=== PATIENT | female | born 1975 | race Caucasian/White ===

== ENCOUNTER 2017-03-08 08:44 | Outpatient (CLI) | payer OTHER ==
--- NOTE | 2017-03-08 09:36 | ULT ---
ULTRASOUND GALLBLADDER RIGHT UPPER QUADRANT: HISTORY: Pain. COMPARISON: None. FINDINGS: Visualized portions of the pancreas unremarkable. The hepatic echotexture is normal. Common bile du ct is normal. The gallbladder is normal. No cholelithiasis. The right kidney measures 9.8 x 4.4 x 4.7 cm without mass, hydronephrosis, or abnormal calcification. IMPRESSION: Normal right upper quadrant ultrasound. POS: [facility]
== END 2017-03-08 08:45 | disposition home or self-care (01) ==
LOC: ULT 08:44
PROVIDERS: ATTEND Internal Medicine Gastroenterology
DX: K21.9 Gastro-esophageal reflux disease without esophagitis (principal); R10.13 Epigastric pain; E11.9 Type 2 diabetes mellitus without complications; R11.0 Nausea
CPT/HCPCS: 76705

== ENCOUNTER 2017-05-04 20:47 | Emergency (ER) | payer OTHER ==
[2017-05-04 21:51] LABS: #Lymphocytes 1.2 thou/uL (1.20-3.40); #Monocytes 0.3 thou/uL (0.11-0.59); #Neutrophils 3.4 thou/uL (1.40-6.50); %Basophils 0.4 % (0.0-1.0); %Eosinophils 0.3 % (0.0-10.0); %Monocytes 6.1 % (0.0-10.0); %Neutrophils 69.2 % (42.0-75.0); Mean Corpuscular Hemoglobin 33.1 pg (27.0-31.0); Mean Corpuscular Volume 91.9 fl (81.0-99.0); Mean Platelet Volume 6.6 fL (7.4-10.4); Platelet Count 250 thou/uL (130-400); RBC Distribution Width 11.3 % (11.5-14.5); Red Blood Cell (RBC) Count 3.93 mill/uL (4.20-5.40); White Blood Cell (WBC) Count 4.9 thou/uL (4.8-10.8)
[2017-05-04 22:02] LABS: BHCG - Serum Negative (NEGATIVE); Pregs Control Background? CLEAR/WHITE (CLR/WHITE); Pregs Control Bar Appear? YES (CONTROL BAR)
[2017-05-04 22:17] LABS: ALT (SGPT) 16 U/L (8-55); AST (SGOT) 15 U/L (5-34); Albumin 4.6 g/dL (3.5-5.0); Alkaline Phosphatase 72 U/L (40-150); Anion Gap 20 mmol/L (10-20); BUN (Urea Nitrogen) 10 mg/dL (7.0-18.7); Bilirubin, Total 1.3 mg/dL (0.2-1.2); Calc. Creatinine Clearance 0 mL/min (70-130); Calcium 10.1 mg/dL (7.8-10.44); Carbon Dioxide 22 mmol/L (22-29); Chloride 97 mmol/L (98-107); Estimated GFR-MDRD 82; Globulin 2.8 g/dL (2.4-3.5); Glucose 254 mg/dL (70-105); Lipase 4 U/L (8-78); Protein, Total 7.4 g/dL (6.0-8.3); Sodium 135 mmol/L (136-145)
[2017-05-04] MEDS ORDERED: Promethazine HCl 25 MG/ML VIAL ONE (22:42)
[2017-05-04] MEDS ORDERED: Ketorolac Tromethamine 30 MG/ML VIAL ONE (23:26)
[2017-05-05] MEDS ORDERED: Lorazepam 2 MG/ML VIAL ONE (00:21)
[2017-05-05 01:46] LABS: Bilirubin Negative (Negative); Blood, Urine Negative (Negative); Clarity CLEAR (Clear); Glucose, Urine (Dipstick) 500 mg/dL (Negative); Leukocyte Small (Negative); Nitrite Negative (Negative); Protein, Urine (Dipstick) Negative (Neg-Trace); Specific Gravity, Urine 1.025 (1.002-1.036); Urobilinogen 0.2 mg/dL (0.2-1.0)
[2017-05-05 01:47] LABS: Pregnancy Test - Urine (BHCG) Negative (Negative); Pregu Control Background? CLEAR/WHITE (CLR/WHITE); Pregu Control Bar Appear? YES (CONTROL BAR); Specific Gravity 1.025 (1.002-1.036)
[2017-05-05 01:48] LABS: Bacteria/HPF 1+ HPF (None Seen); Hyaline Casts/LPF 0-3 HYALINE CAST LPF (0-3 Hyaline); RBC/HPF 0-3 HPF (0-3); Squamous Epithelial 0-3 HPF (0-3)
== END 2017-05-05 02:05 | disposition home or self-care (01) ==
LOC: ERS 20:47
DX: E10.43 Type 1 diabetes mellitus with diabetic autonomic (poly)neuropathy (principal); K31.84 Gastroparesis; F32.9 Major depressive disorder, single episode, unspecified
CPT/HCPCS: 80053; 81003; 81015; 81025; 83690; 84703; 85025; 87086; 96361; 96365; 96372; 96375; J1885; J2060; J2550

== ENCOUNTER 2017-05-07 10:10 | Observation (INO) | payer OTHER ==
[2017-05-07 11:03] LABS: #Lymphocytes 2.2 thou/uL (1.20-3.40); #Monocytes 0.7 thou/uL (0.11-0.59); %Basophils 0.4 % (0.0-1.0); %Eosinophils 0.2 % (0.0-10.0); %Lymphocytes 31.8 % (21.0-51.0); %Monocytes 10.1 % (0.0-10.0); %Neutrophils 57.6 % (42.0-75.0); Hemoglobin 13.5 g/dL (12.0-16.0); Mean Corpuscular HGB CONC 35.8 g/dL (32.0-36.0); Mean Corpuscular Hemoglobin 32.5 pg (27.0-31.0); Mean Corpuscular Volume 90.8 fl (81.0-99.0); Mean Platelet Volume 6.4 fL (7.4-10.4); Platelet Count 245 thou/uL (130-400); RBC Distribution Width 11.4 % (11.5-14.5); Red Blood Cell (RBC) Count 4.15 mill/uL (4.20-5.40); White Blood Cell (WBC) Count 6.9 thou/uL (4.8-10.8)
[2017-05-07] MEDS ORDERED: Ondansetron HCl/PF 4 MG/2 ML Vial ONE ×2 (11:09→13:26)
[2017-05-07 11:33] LABS: ALT (SGPT) 14 U/L (8-55); AST (SGOT) 15 U/L (5-34); Albumin 4.3 g/dL (3.5-5.0); Alkaline Phosphatase 64 U/L (40-150); Anion Gap 19 mmol/L (10-20); BUN (Urea Nitrogen) 14 mg/dL (7.0-18.7); Bilirubin, Total 0.9 mg/dL (0.2-1.2); Calc. Creatinine Clearance 0 mL/min (70-130); Calcium 9.7 mg/dL (7.8-10.44); Carbon Dioxide 20 mmol/L (22-29); Chloride 102 mmol/L (98-107); Estimated GFR-MDRD 77; Globulin 2.6 g/dL (2.4-3.5); Glucose 262 mg/dL (70-105); Lipase 9 U/L (8-78); Potassium 4.4 mmol/L (3.5-5.1); Protein, Total 6.9 g/dL (6.0-8.3); Sodium 137 mmol/L (136-145)
[2017-05-07 14:21] LABS: Bilirubin Small (Negative); Blood, Urine Negative (Negative); Clarity CLEAR (Clear); Glucose, Urine (Dipstick) >=1000 mg/dL (Negative); Leukocyte Negative (Negative); Nitrite Negative (Negative); Protein, Urine (Dipstick) Trace mg/dL (Neg-Trace); Specific Gravity, Urine 1.035 (1.002-1.036); Urobilinogen 0.2 mg/dL (0.2-1.0)
[2017-05-07] MEDS ORDERED: Promethazine HCl 25 MG/ML VIAL IM/IV PRN (14:31)
[2017-05-07] MEDS ORDERED: Erythromycin Base 250 MG TAB PO ONE (15:00)
[2017-05-07] MEDS ORDERED: Acetaminophen 650 MG Suppository PR PRN (15:30)
[2017-05-07] MEDS ORDERED: Acetaminophen 325 MG TAB PO PRN (15:30)
[2017-05-07] MEDS ORDERED: Bisacodyl 5 MG TAB PO PRN (15:30)
[2017-05-07] MEDS ORDERED: Ondansetron HCl/PF 4 MG/2 ML Vial IVP PRN (15:30)
[2017-05-07] MEDS ORDERED: HumaLOG 300 UNITS/3 ML VIAL SC PRN (15:31)
[2017-05-07] MEDS ORDERED: Dextrose 5% in Water 1,000 ML IV PRN (15:31)
[2017-05-07] MEDS ORDERED: Dextrose 50% Abboject 50 ML SYRINGE SLOW IVP PRN (15:31)
--- NOTE | 2017-05-07 16:08 | HP ---
PRIMARY CARE PHYSICIAN: Jeremy Ramon M.D. CHIEF COMPLAINT: Nausea and vomiting. HISTORY OF PRESENT ILLNESS: Ms. Martin is a pleasant 41-year-old lady who was seen at [facility] on 05/07/2017. She was sent to the emergency room by her primary care physician. She reports that since 11/2016, she has had 4 hospitalizations, first for diabetic ketoacidosis and e lectrolyte imbalance, subsequently for abdominal pain and then subsequent two admissions for gastropa resis. She has been tried on erythromycin for gastroparesis. She is currently awaiting a shipment o f domperidone from [facility]. Over the last 4 or 5 days, she reports intense nausea and vomiting, multiple episodes daily, unable t o tolerate anything orally. She also reports having some epigastric discomfort that started today, b ut is unable to describe it further. She reports shortness of breath both with exertion and at rest. She denies any cough. She reports occasional chills. She reports that she has to take laxatives t o have a bowel movement. She denies any back pain. She was seen by school age program associate, Dr. Burgos yesterday and was prescribed dronabinol. She reports th at she did not help. REVIEW OF SYSTEMS: The following complete review of systems was negative, unless otherwise mentioned in the HPI or below: Constitutional: Weight loss or gain, ability to conduct usual activities. Skin: Rash, itching. Eyes: Double vision, pain. ENT/Mouth: Nose bleeding, neck stiffness, pain, tenderness. Cardiovascular: Palpitations, dyspnea on exertion, orthopnea. Respiratory: Shortness of breath, wheezing, cough, hemoptysis, fever or night sweats. Gastrointestinal: Poor appetite, abdominal pain, heartburn, nausea, vomiting, constipation, or diarr hea. Genitourinary: Urgency, frequency, dysuria, nocturia. Musculoskeletal: Pain, swelling. Neurologic/Psychiatric: Anxiety, depression. Allergy/Immunologic: Skin rash, bleeding tendency. PAST MEDICAL HISTORY: Significant for diabetes mellitus type 2, gastroparesis, peripheral neuropathy , and possible autonomic neuropathy. PAST SURGICAL HISTORY: Significant for tonsillectomy, surgery for impacted bicuspid as an infant. PSYCHIATRIC HISTORY: Significant for depression. SOCIAL HISTORY: The patient denies tobacco use, alcohol use or recreational drug use. FAMILY HISTORY: Significant for diabetes mellitus type 2 in her family members. ALLERGIES: AMITRIPTYLINE, CODEINE, HALDOL, LATEX, NATURAL RUBBER, and REGLAN. CURRENT MEDICATIONS: Include metoprolol 12.5 mg 2 times a day, Cymbalta unknown dose 2 times a day, tramadol 50 mg as needed, Zofran and Phenergan as needed. PHYSICAL EXAMINATION: GENERAL: On examination, Ms. Martin is awake and alert, not in acute distress. VITAL SIGNS: Blood pressure is 138/85, pulse is 91. She is breathing at rate of 18 and saturating 1 00% on room air. She is afebrile. She appears frail. EYES: No scleral icterus. No conjunctival pallor. ENT: Dry mucosal membranes. No oropharyngeal erythema or exudates. NECK: Supple, nontender, normal range of movement. Trachea is midline. RESPIRATORY: Accessory muscles of breathing are not active. Chest wall movements are symmetric bila terally. LUNGS: Clear to auscultation without wheeze, rhonchi or crepitations. CARDIOVASCULAR: S1 and S2 are heard, regular. Peripheral pulses are palpable. No carotid bruit, no pericardial rub. ABDOMEN: Soft, nontender, bowel sounds heard, no hepatomegaly, no splenomegaly. NEUROLOGIC: Cranial nerves II-XII are intact. Deep tendon reflexes 2+. MUSCULOSKELETAL: Power is 5/5 in all 4 extremities. Normal range of movement at all major extremity joints. SKIN: No rashes or subcutaneous nodules. LYMPHATIC: No cervical lymphadenopathy. PSYCHIATRIC: Normal mood, normal affect, patient is oriented to person, place, and time. LABORATORY DATA: Ms. Martin's labs and investigations were reviewed. She has a normal white count , normal hemoglobin, normal platelet count, normal sodium, normal potassium, slightly decreased carbo n dioxide of 20, normal anion gap of 19, normal creatinine, unremarkable liver profile, elevated bloo d glucose of 262, urinalysis that is positive for glucose, ketones, and small amount of bilirubin. U rine toxicology that is positive for beta hydroxybutyrate. Her lipase is normal. ASSESSMENT AND PLAN: Ms. Martin is a pleasant 41-year-old lady who was seen at [facility] on 05/07/2017. Her problem list includes: 1. Nausea and vomiting. Her clinical picture is inconsistent with diabetic ketoacidosis, with a nor mal anion gap. Nausea and vomiting is most likely secondary to either gastroparesis or gastroenterit is. She will be admitted to the hospital for further management, including intravenous fluids and an tiemetics. Gastroenterology Service will be consulted. 2. Diabetes mellitus type 1: She reports episodes of hypoglycemia. We will start her on Accu-Cheks and insulin sliding scale. 3. Dehydration: The patient is clinically dehydrated, we will provide intravenous hydration. Many thanks for allowing me to participate in Ms. Martin's care. Please feel free to contact me wi th any questions or concerns. LEVEL OF RISK: Moderate. LEVEL OF COMPLEXITY: Moderate.
[2017-05-07] MEDS ORDERED: Promethazine HCl 25 MG/ML VIAL ONE (16:23)
[2017-05-07 19:06] VITALS: BMI 17.7
[2017-05-07] MEDS ORDERED: Ketorolac Tromethamine 30 MG/ML VIAL IVP PRN (19:16)
[2017-05-07] MEDS ORDERED: traMADol HCl 50 MG TAB PO PRN (20:27)
[2017-05-07] MEDS ORDERED: Lorazepam 1 MG TAB PO PRN (20:28)
[2017-05-08] MEDS ORDERED: Lorazepam 1 MG TAB PO PRN (05:56)
[2017-05-08 06:20] LABS: Anion Gap 13 mmol/L (10-20); BUN (Urea Nitrogen) 8 mg/dL (7.0-18.7); Calc. Creatinine Clearance 79 mL/min (70-130); Calcium 8.7 mg/dL (7.8-10.44); Carbon Dioxide 21 mmol/L (22-29); Chloride 107 mmol/L (98-107); Estimated GFR-MDRD Greater than 90; Glucose 200 mg/dL (70-105); Potassium 3.7 mmol/L (3.5-5.1); Sodium 137 mmol/L (136-145)
[2017-05-08 06:49] LABS: Lymphocytes 53 % (21-51); MDiff Complete? YES; Mean Corpuscular Hemoglobin 32.6 pg (27.0-31.0); Mean Corpuscular Volume 90.5 fl (81.0-99.0); Mean Platelet Volume 6.6 fL (7.4-10.4); Monocytes 4 % (0-10); Neutrophil 42 % (42-75); PLT Morphology Comment Appears Adequate; Platelet Count 207 thou/uL (130-400); RBC Distribution Width 11.2 % (11.5-14.5); RBC Morphology Normal; Reactive Lymphocytes 2 % (0-10); Red Blood Cell (RBC) Count 3.36 mill/uL (4.20-5.40); White Blood Cell (WBC) Count 4.3 thou/uL (4.8-10.8)
[2017-05-08] MEDS ORDERED: Enoxaparin Sodium 40 MG/0.4 ML SYRINGE SC SCH (09:00)
[2017-05-08 12:07] VITALS: BP 130/87; TEMP 98.2
[2017-05-08] MEDS ORDERED: Senokot 8.6 MG TAB PO PRN (12:41)
[2017-05-08] MEDS ORDERED: traMADol HCl 50 MG TAB PO PRN (12:41)
[2017-05-08] MEDS ORDERED: Metoprolol Tartrate 25 MG TAB PO SCH ×2 (12:45→14:30)
[2017-05-08] MEDS ORDERED: Ondansetron ODT 4 MG TAB PO SCH (14:00)
[2017-05-08] MEDS ORDERED: Ketorolac Tromethamine 10 MG TAB PO PRN (14:54)
--- NOTE | 2017-05-08 15:08 | CON ---
DATE OF CONSULTATION: 05/08/2017 HISTORY OF PRESENT ILLNESS: Patient is a 41-year-old female who has been diagnosed with se peri gastroparesis in the past. She was initially treated at [facility] and underwent several [facility]. During that hospitalization, she apparently underwent an EGD and was told that it was normal. She was treated with a combination of medications and subsequently was discharg ed on erythromycin and Phenergan suppositories. She returned yesterday because of persistent nausea and vomiting. During that episode she had Phenergan and used somewhat sparingly. She also was presc ribed Marinol, which made her feel funny and burp, marijuana tasting fluid. She has lost some weight and is now under 100 pounds. She was prescribed domperidone by Dr. Burgos and that is due to arrive a . PAST MEDICAL HISTORY: Significant for diabetes mellitus, gastroparesis, and peripheral neuropathy. PAST SURGICAL HISTORY: Includes tonsillectomy. SOCIAL HISTORY: She does not smoke or drink. FAMILY HISTORY: Significant for diabetes. ALLERGIES: CODEINE, AMITRIPTYLINE, HALDOL, PRESERVATIVES, INSULIN, LATEX and REGLAN. REVIEW OF SYSTEMS: Ten systems were reviewed and were negative except for above. MEDICATIONS: Domperidone 1 p.o. q.i.d. before meals, promethazine 25 mg 1 p.o. q.6 hours p.r.n., Zof ran 4 mg 1 p.o. t.i.d. p.r.n., Cymbalta 20 mg 1 p.o. b.i.d., erythromycin 250 mg 1 p.o. daily, Flutic asone nasal spray 1 as directed, Protonix 40 mg 1 p.o. daily, insulin NPH, magnesium oxide 400 mg 1 p .o. daily, metoprolol 0.5 mg p.o. b.i.d. PHYSICAL EXAMINATION: GENERAL: Shows a thin white female in no acute distress. VITAL SIGNS: Temperature 98.2, pulse 107, respiratory rate 16, blood pressure 130/87. CHEST: Clear. CARDIOVASCULAR: Regular rate and rhythm. ABDOMEN: Soft and nontender without organomegaly or masses. Bowel sounds are present and normoactiv e. RECTAL: Deferred. EXTREMITIES: Normal. NEUROLOGIC: Nonfocal. LABORATORY DATA: Shows white blood cell count 4.3, hemoglobin 11, hematocrit 30.4, platelet count is 207. Chemistries show CO2 of 21, glucose 200. Urinalysis shows urine glucose greater than 1000, ke tones greater than or equal to 80. ASSESSMENT: 1. Intractable nausea and vomiting. 2. Diabetic gastroparesis. 3. Diabetic neuropathy. 4. Diabetes mellitus. 5. Weight loss. RECOMMENDATIONS: 1. Switch from pantoprazole to famotidine 40 mg p.o. b.i.d. 2. Continue Phenergan suppositories. 3. Continue erythromycin 250 mg b.i.d. until nausea and vomiting resolved. 4. Begin domperidone when available. 5. Advance diet. 6. Stable for discharge from gastrointestinal standpoint, if patient tolerates solid diet.
--- NOTE | 2017-05-08 15:18 | DIS ---
DATE OF ADMISSION: 05/07/2017 DATE OF DISCHARGE: 05/08/2017 PRIMARY CARE PHYSICIAN: Jeremy Ramon M.D. DISCHARGE DIAGNOSES: 1. Nausea and vomiting. 2. Dehydration. CONDITION OF PATIENT AT THE TIME OF DISCHARGE: Stable. I assessed Ms. Martin on the day of discharge. She denies any chest pain or shortness of breath. Vital signs are stable. S1 and S2 are heard, regular. Lungs are clear to auscultation bilaterally. HOSPITAL COURSE: Ms. Martin is a pleasant 41-year-old lady who was admitted to [facility] on 05/07/2017 for nausea, vomiting, and dehydration. She was admitted to the [facility] floor. She was seen by Gastroenterology Service. The following day, she improved clinically. G astroenterology Service has discontinued her Protonix and started her on Pepcid 40 mg 2 times a day. I am also giving her a prescription for 15 doses of 10 mg ketorolac tablets as well as 15 doses of 2 50 mg erythromycin liquid. She has been advised to follow up with her primary care physician in 3-5 days for assessment and further prescriptions if needed. On the day of discharge, she has a white co unt of 4300, hemoglobin 11, platelet count 207,000, normal sodium, normal potassium, carbon dioxide i s slightly decreased at 21, normal creatinine. DISCHARGE MEDICATIONS: Include Cymbalta 20 mg 2 times a day, Pepcid 40 mg 2 times a day, insulin as directed by her primary care physician, lorazepam 1 mg at bedtime, metoprolol succinate 12.5 mg 2 ho es a day, Zofran p.r.n., MiraLax 17 grams daily, Senna 8.6 mg 2 times a day as needed, tramadol 50 mg every 4 hours as needed, ketorolac 10 mg every 8 hours as needed, erythromycin 250 mg 3 times a day. Many thanks for allowing me to participate in your patient's care. Please feel free to contact me if any questions or concerns. DISCHARGE DESTINATION: Home.
[2017-05-08] MEDS ORDERED: Famotidine 20 MG TAB PO SCH (21:00)
[2017-05-08] MEDS ORDERED: NPH, Human Insulin Isophane 300 UNIT/3 ML VIAL SC SCH (21:00)
[2017-05-08] MEDS ORDERED: Lorazepam 1 MG TAB PO SCH (21:00)
[2017-05-08] MEDS ORDERED: LORAZEPAM 1 MG PO SCH (21:00)
[2017-05-09] MEDS ORDERED: Non-Formulary Item 1 EACH (Pantoprazole Sodium [Protonix] 20 MG) PO SCH (09:00)
[2017-05-09] MEDS ORDERED: Non-Formulary Item 1 EACH (Metoprolol Succinate [Metoprolol Succinate] 25 MG) PO SCH (09:00)
[2017-05-09] MEDS ORDERED: Pantoprazole 40 MG GRANULES PACKET PO SCH (09:00)
[2017-05-09] MEDS ORDERED: Polyethylene Glycol 3350 17 GM Packet PO SCH (09:00)
== END 2017-05-08 16:07 | disposition home or self-care (01) ==
LOC: ERS 10:10 → EEVIPCON 10:10 → 2SW 19:04
PROVIDERS: ADMIT Internal Medicine; ATTEND Internal Medicine
DX: R11.2 Nausea with vomiting, unspecified (principal); E86.0 Dehydration; E10.42 Type 1 diabetes mellitus with diabetic polyneuropathy; E10.43 Type 1 diabetes mellitus with diabetic autonomic (poly)neuropathy; K31.84 Gastroparesis; F32.9 Major depressive disorder, single episode, unspecified; R63.4 Abnormal weight loss; Z68.1 Body mass index [BMI] 19.9 or less, adult; Z88.5 Allergy status to narcotic agent; Z88.8 Allergy status to other drugs, medicaments and biological substances; Z79.899 Other long term (current) drug therapy; Z91.040 Latex allergy status; Z79.51 Long term (current) use of inhaled steroids; Z90.89 Acquired absence of other organs; Z98.890 Other specified postprocedural states
CPT/HCPCS: 36415; 36416; 80048; 80053; 81003; 82010; 83690; 85025; 96361; 96365; 96366; 96375; 96376; G0378; J1650; J1885; J2405; J2550; Q0162

== ENCOUNTER 2017-05-11 21:23 | Emergency (ER) | payer OTHER ==
[2017-05-11 21:53] LABS: #Lymphocytes 0.9 thou/uL (1.20-3.40); #Monocytes 0.4 thou/uL (0.11-0.59); #Neutrophils 4.8 thou/uL (1.40-6.50); %Basophils 0.3 % (0.0-1.0); %Eosinophils 0.5 % (0.0-10.0); %Lymphocytes 14.2 % (21.0-51.0); %Monocytes 7.2 % (0.0-10.0); %Neutrophils 77.7 % (42.0-75.0); Hemoglobin 12.6 g/dL (12.0-16.0); Mean Corpuscular HGB CONC 35.6 g/dL (32.0-36.0); Mean Corpuscular Hemoglobin 32.9 pg (27.0-31.0); Mean Corpuscular Volume 92.4 fl (81.0-99.0); Mean Platelet Volume 6.8 fL (7.4-10.4); Platelet Count 212 thou/uL (130-400); Red Blood Cell (RBC) Count 3.84 mill/uL (4.20-5.40); White Blood Cell (WBC) Count 6.2 thou/uL (4.8-10.8)
[2017-05-11 22:14] LABS: ALT (SGPT) 16 U/L (8-55); AST (SGOT) 14 U/L (5-34); Albumin 4.4 g/dL (3.5-5.0); Alkaline Phosphatase 71 U/L (40-150); Anion Gap 18 mmol/L (10-20); BUN (Urea Nitrogen) 8 mg/dL (7.0-18.7); Bilirubin, Total 0.9 mg/dL (0.2-1.2); Calc. Creatinine Clearance 0 mL/min (70-130); Calcium 10.1 mg/dL (7.8-10.44); Carbon Dioxide 26 mmol/L (22-29); Chloride 98 mmol/L (98-107); Estimated GFR-MDRD 81; Globulin 2.6 g/dL (2.4-3.5); Glucose 256 mg/dL (70-105); Lipase 17 U/L (8-78); Potassium 3.9 mmol/L (3.5-5.1); Sodium 138 mmol/L (136-145)
[2017-05-11] MEDS ORDERED: diphenhydrAMINE 50 MG/ML VIAL ONE (22:19)
[2017-05-11] MEDS ORDERED: Metoclopramide HCl 10 MG/2 ML VIAL ONE (22:38)
[2017-05-11] MEDS ORDERED: Lorazepam 2 MG/ML VIAL ONE (23:23)
[2017-05-11 23:31] LABS: Bilirubin Negative (Negative); Blood, Urine Negative (Negative); Clarity CLEAR (Clear); Glucose, Urine (Dipstick) 250 mg/dL (Negative); Leukocyte Small (Negative); Nitrite Negative (Negative); Protein, Urine (Dipstick) Negative (Neg-Trace); Specific Gravity, Urine 1.013 (1.002-1.036); Urobilinogen 0.2 mg/dL (0.2-1.0); pH, Urine 6.5 (5.0-9.0)
[2017-05-11 23:33] LABS: Bacteria/HPF Rare-Few HPF (None Seen); Hyaline Casts/LPF 0-3 HYALINE CAST LPF (0-3 Hyaline); RBC/HPF 0-3 HPF (0-3); Squamous Epithelial 0-3 HPF (0-3); WBC/HPF 0-3 HPF (0-3)
[2017-05-11 23:37] LABS: Pregnancy Test - Urine (BHCG) Negative (Negative); Pregu Control Background? CLEAR/WHITE (CLR/WHITE); Pregu Control Bar Appear? YES (CONTROL BAR); Specific Gravity 1.013 (1.002-1.036)
== END 2017-05-12 00:30 | disposition home or self-care (01) ==
LOC: ERS 21:23
DX: E10.43 Type 1 diabetes mellitus with diabetic autonomic (poly)neuropathy (principal); K31.84 Gastroparesis; R11.2 Nausea with vomiting, unspecified; F32.9 Major depressive disorder, single episode, unspecified
CPT/HCPCS: 36416; 80053; 81003; 81015; 81025; 83690; 85025; 93005; 96361; 96365; 96375; J1200; J2060; J2765

== ENCOUNTER 2017-05-19 13:00 | Emergency (ER) | payer OTHER ==
[2017-05-19] MEDS ORDERED: Promethazine HCl 25 MG/ML VIAL ONE (13:45)
[2017-05-19 14:03] LABS: #Basophils 0.1 thou/uL (0.0-0.2); #Eosinphils 0.1 thou/uL (0.0-0.7); #Lymphocytes 1.3 thou/uL (1.20-3.40); #Monocytes 0.4 thou/uL (0.11-0.59); %Basophils 1.1 % (0.0-1.0); %Eosinophils 2.6 % (0.0-10.0); %Lymphocytes 26.7 % (21.0-51.0); %Monocytes 7.2 % (0.0-10.0); %Neutrophils 62.3 % (42.0-75.0); Hemoglobin 14.4 g/dL (12.0-16.0); Mean Corpuscular HGB CONC 34.7 g/dL (32.0-36.0); Mean Corpuscular Hemoglobin 32.5 pg (27.0-31.0); Mean Corpuscular Volume 93.4 fl (81.0-99.0); Mean Platelet Volume 6.8 fL (7.4-10.4); Platelet Count 236 thou/uL (130-400); RBC Distribution Width 12.2 % (11.5-14.5); Red Blood Cell (RBC) Count 4.43 mill/uL (4.20-5.40); White Blood Cell (WBC) Count 4.8 thou/uL (4.8-10.8)
[2017-05-19 14:29] LABS: ALT (SGPT) 17 U/L (8-55); AST (SGOT) 16 U/L (5-34); Albumin 4.6 g/dL (3.5-5.0); Alkaline Phosphatase 85 U/L (40-150); Anion Gap 12 mmol/L (10-20); BUN (Urea Nitrogen) 7 mg/dL (7.0-18.7); Bilirubin, Total 0.8 mg/dL (0.2-1.2); Calc. Creatinine Clearance 0 mL/min (70-130); Calcium 10.3 mg/dL (7.8-10.44); Carbon Dioxide 31 mmol/L (22-29); Chloride 98 mmol/L (98-107); Estimated GFR-MDRD 86; Globulin 2.9 g/dL (2.4-3.5); Glucose 285 mg/dL (70-105); Potassium 5.1 mmol/L (3.5-5.1); Protein, Total 7.5 g/dL (6.0-8.3); Sodium 136 mmol/L (136-145)
[2017-05-19] MEDS ORDERED: Ondansetron HCl/PF 4 MG/2 ML Vial ONE (15:13)
[2017-05-19 17:10] LABS: Bilirubin Negative (Negative); Blood, Urine Negative (Negative); Clarity CLEAR (Clear); Glucose, Urine (Dipstick) 250 mg/dL (Negative); Leukocyte Small (Negative); Nitrite Negative (Negative); Protein, Urine (Dipstick) Negative (Neg-Trace); Specific Gravity, Urine 1.006 (1.002-1.036); Urobilinogen 0.2 mg/dL (0.2-1.0)
[2017-05-19 17:13] LABS: Bacteria/HPF 1+ HPF (None Seen); Hyaline Casts/LPF 0-3 HYALINE CAST LPF (0-3 Hyaline); RBC/HPF 0-3 HPF (0-3)
== END 2017-05-19 18:00 | disposition home or self-care (01) ==
LOC: ERS 13:00
DX: R11.2 Nausea with vomiting, unspecified (principal); E10.40 Type 1 diabetes mellitus with diabetic neuropathy, unspecified; E10.43 Type 1 diabetes mellitus with diabetic autonomic (poly)neuropathy; K31.84 Gastroparesis; F41.9 Anxiety disorder, unspecified; F32.9 Major depressive disorder, single episode, unspecified
CPT/HCPCS: 36415; 36416; 80053; 81003; 81015; 82010; 83690; 85025; 96361; 96372; 96374; J2405; J2550

== ENCOUNTER 2017-05-20 15:26 | Inpatient (IN) | payer OTHER ==
--- NOTE | 2017-05-20 20:28 | CON ---
DATE OF CONSULTATION: 05/10/2017 CHIEF COMPLAINT: Nausea and vomiting and vomited blood. HISTORY OF PRESENT ILLNESS: Ms. Martin is a 41-year-old woman with a history of severe gastropares is, who presented to the office today with severe ongoing nausea and vomiting. She has been taking P henergan and Zofran without help. She retched multiple times and then yesterday threw up black mater ial and red bloody vomitus. She has had little stool output, but has had very little to eat as well. She was just discharged from the hospital on 05/08/2017, at which point she was treated with erythr omycin IV. She had a much more prolonged hospitalization at [facility] in [place], at which point she had an EGD done in March that was reportedly normal. She has been followed by Dr. Burgos as an outpatient. She has a prescription for domperidone, which she has not yet filled. She tried Marinol , which did not help. She has continued to lose weight. Her weight in 01/2017 was 113 pounds down t o 103 pounds by 04/16/2017. Currently, today 99 pounds. She has had no blood in the stool. PAST MEDICAL HISTORY: Diabetes mellitus, peripheral neuropathy, gastroparesis. PAST SURGICAL HISTORY: Tonsillectomy, upper endoscopy recently per her report at [facility] in [facility]. FAMILY HISTORY: Negative for GI malignancies. SOCIAL HISTORY: No alcohol, tobacco or drugs. ALLERGIES: DAIRY PRODUCTS, LATEX, CODEINE. MEDICATIONS: As an outpatient, she has a prescription for domperidone, but has not yet filled that. She tried dronabinol previously, but is not taking that routinely. Promethazine 25 mg suppositories every 6 hours as needed, Zofran dissolvable tablets 4 mg as needed, Cymbalta, fluticasone, metoprolo l, insulin. She has been on famotidine most recently. REVIEW OF SYSTEMS: Negative x10 systems reviewed except as stated in the history of present illness. PHYSICAL EXAMINATION: VITAL SIGNS: Temperature 97.8, pulse 88, blood pressure 101/60. GENERAL: She is uncomfortable. She is lying in bed in the position. She is in no acute distr ess. She is awake, alert, and oriented. HEENT: Her eyes have no scleral icterus. Oropharynx is clear, without lesions. NECK: No cervical or supraclavicular lymphadenopathy. LUNGS: Clear to auscultation bilaterally. HEART: Regular rate and rhythm without murmur. ABDOMEN: Soft, nontender, nondistended. Bowel sounds are present. EXTREMITIES: No lower extremity edema. IMPRESSION: 1. Exacerbation of chronic diabetic gastroparesis. She has failed outpatient treatment with prometh azine suppositories and Zofran dispersible orally. She did not improve with Marinol. She had prior side effects with Reglan in the past. She has a prescription for domperidone, but it has not been fi lled as of yet. She has been referred to Dr. Saxena in [place], Motility specialist; however, this ap pointment has not scheduled for a couple of months. 2. Hematemesis. This is likely a Eloina-Alvarez tear. The bleeding occurred after multiple retching episodes. She had a recent negative endoscopy. We will request the report from her last endoscopy at [facility] in [place]. We will monitor her hemoglobin. Repeat endoscopy currently is unlikel y the significantly global director air and climate change. RECOMMENDATIONS: 1. In light of the hematemesis, we will change her back from H2 roro to proton pump inhibitor joann ly. 2. Continue antiemetics. 3. IV erythromycin can be given if she fails to improve by tomorrow morning. 4. IV fluids. 5. Monitor trend of the hemoglobin.
[2017-05-20] MEDS ORDERED: Lorazepam 1 MG TAB PO PRN (21:31)
[2017-05-20] MEDS ORDERED: traMADol HCl 50 MG TAB PO PRN (21:31)
[2017-05-20] MEDS ORDERED: Polyethylene Glycol 3350 17 GM Packet PO PRN (21:31)
[2017-05-20] MEDS ORDERED: Senokot 8.6 MG TAB PO PRN (21:31)
[2017-05-20] MEDS ORDERED: Ondansetron ODT 4 MG TAB PO PRN (21:31)
[2017-05-20] MEDS ORDERED: Acetaminophen 325 MG TAB PO PRN (21:36)
[2017-05-20] MEDS ORDERED: Ondansetron HCl/PF 4 MG/2 ML Vial IVP PRN (21:36)
[2017-05-20] MEDS ORDERED: HYDROcodone/Acetaminophen 5/325 mg Tablet PO PRN (21:36)
[2017-05-20] MEDS ORDERED: Dextrose 50% Abboject 50 ML SYRINGE SLOW IVP PRN (21:43)
[2017-05-20] MEDS ORDERED: Insulin Regular 300 UNITS/3 ML VIAL SC PRN (21:43)
[2017-05-20] MEDS ORDERED: Dextrose 5% in Water 1,000 ML IV PRN (21:43)
[2017-05-20 22:04] LABS: #Lymphocytes 1.8 thou/uL (1.20-3.40); #Monocytes 0.5 thou/uL (0.11-0.59); #Neutrophils 2.9 thou/uL (1.40-6.50); %Basophils 0.7 % (0.0-1.0); %Eosinophils 0.5 % (0.0-10.0); %Lymphocytes 33.6 % (21.0-51.0); %Monocytes 9.5 % (0.0-10.0); %Neutrophils 55.7 % (42.0-75.0); Hemoglobin 11.8 g/dL (12.0-16.0); Mean Corpuscular HGB CONC 34.9 g/dL (32.0-36.0); Mean Corpuscular Hemoglobin 32.5 pg (27.0-31.0); Mean Corpuscular Volume 93.1 fl (81.0-99.0); Mean Platelet Volume 6.4 fL (7.4-10.4); Platelet Count 191 thou/uL (130-400); RBC Distribution Width 12.2 % (11.5-14.5); Red Blood Cell (RBC) Count 3.64 mill/uL (4.20-5.40); White Blood Cell (WBC) Count 5.3 thou/uL (4.8-10.8)
[2017-05-20] MEDS: Sodium Chloride 0.9% 1,000 ML IV SCH (22:13)
--- NOTE | 2017-05-20 22:14 | HP ---
DATE OF ADMISSION: 05/20/2017 CHIEF COMPLAINT: Nausea and vomiting. HISTORY OF PRESENT ILLNESS: This is a 41-year-old young white female with known history of type 2 di abetes diagnosed at the age of 29 years. She has been on NPH 10 in the morning and 10 in the evening and has been doing fine with a good A1c level as 6.7 recently. But patient has been having persiste nt nausea and vomiting secondary to severe gastroparesis and she was recently started on domperidone, which she could not take it as it was in the mail. So she started her first dose today and she went to special effects technician for the persistent nausea, Dr. Emery, who suggested the patient to be admitted directly to the hospital. Patient was admitted to the hospital and she did take her domperidone thi s evening and her nausea has been much better and she did have some broth today and she was able to k eep it down. She denies having any abdominal pain, no diarrhea, no constipation. Her nausea has imp roved, but her sugars continue to be high at this time in 400s. She is refusing to take Levemir as s he had a bad experience in the past. But the patient had a good A1c while she was on NPH on 10 in th e morning and 10 in the evening. PAST MEDICAL HISTORY: Type 2 diabetes mellitus. PAST SURGICAL HISTORY: Tonsillectomy. SOCIAL HISTORY: The patient denies any smoking. No history of alcohol, no history of illicit drug u se. FAMILY HISTORY: Both the parents are diabetic. Her mother is a type 2 diabetic. Father is a type 1 diabetic. ALLERGIES: AMITRIPTYLINE, CODEINE, HALDOL, LATEX, NATURAL RUBBER, and REGLAN. HOME MEDICATIONS: 1. Domperidone 10 mg p.o. q.i.d. 2. Cymbalta 20 mg p.o. b.i.d. 3. Regular insulin. 4. Ketorolac 10 mg. 5. Toradol p.o. q.8 h. 6. Lorazepam. 7. Metoprolol 25 mg p.o. b.i.d. 8. NPH 10 units subcu b.i.d. 9. Ondansetron 4 mg p.o. q.8 h. 10. Polyethylene glycol 17 grams daily. REVIEW OF SYSTEMS: All 12 systems are reviewed with the patient thoroughly and found to be negative at this time. Systems reviewed HEENT, CVS, COMPUTER SYSTEMS SECURITY ADMINISTRATOR, respiratory, GI, , musculoskeletal, skin, endocrin e, psychiatric. The following complete review of systems was negative, unless otherwise mentioned in the HPI or below : Constitutional: Weight loss or gain, sense of well-being, ability to conduct usual activities, exerc ise tolerance. Skin/Breast: Rash, itching, changes in hair growth or loss, nail changes, breast lum ps, tenderness, swelling, nipple discharge. Eyes: Vision, double vision, tearing, blind spots, pain . ENT/Mouth: Headaches (location, time of onset, duration, precipitating factors), vertigo, lighthe adedness, injury. Vision, double vision, tearing, blind spots, pain, nose bleeding, colds, obstructio n, discharge, dental difficulties, gingival bleeding, dentures, neck stiffness, pain, tenderness, mas ses in thyroid or other areas. Cardiovascular: Precordial pain, substernal distress, palpitations, syncope, dyspnea on exertion, orthopnea, nocturnal paroxysmal dyspnea, edema, cyanosis, hypertension, heart murmurs, varicosities, phlebitis, claudication. Respiratory: Pain, shortness of breath, whee zing, stridor, cough, hemoptysis, fever or night sweats. Gastrointestinal: Poor appetite, dysphagia , indigestion, abdominal pain, heartburn, eructation, nausea, vomiting, hematemesis, jaundice, consti pation, or diarrhea, abnormal stools (kerline-colored, tarry, bloody, greasy, foul smelling), flatulence , hemorrhoids, recent changes in bowel habits. Genitourinary: Urgency, frequency, dysuria, nocturia , hematuria, polyuria, oliguria, unusual (or change in) color of urine, stones, hesitancy, change in size of stream, dribbling, acute retention or incontinence, libido, potency. Musculoskeletal: Pain, swelling, redness or heat of muscles or joints, limitation, of motion, muscular weakness, atrophy, c ramps. Neurologic/Psychiatric: Convulsions, paralyses, tremor, incoordination, parasthesias, diffic ulties with memory of speech, sensory or motor disturbances, or muscular coordination (ataxia, tremor ), emotional problems, anxiety, depression, previous psychiatric care, unusual perceptions, hallucina tions. Allergy/Immunologic: Skin rash, anemia, bleeding tendency, polydipsia, polyuria, intolerance to heat or cold. PHYSICAL EXAMINATION: VITAL SIGNS: Blood pressures are 106/62, heart rate is 104, respiration is 18, saturation is 98%. GENERAL: The patient is moderately built and moderately nourished. She does not appear to be in any acute distress at this time. She is alert and oriented x3. HEENT: Atraumatic, normocephalic. PERRLA. Extraocular muscles were intact. Oral mucosa is dry. CARDIOVASCULAR: S1, S2 normal. No murmurs, rubs or gallops. LUNGS: Bilateral air entry was equal. No wheezing, no crackles. ABDOMEN: Soft, nontender, no guarding, no rebound tenderness. Bowel sounds normal. MUSCULOSKELETAL: No calf tenderness. No pedal edema. EXTREMITIES: No joint tenderness, no joint swelling. SKIN: No cyanosis, no erythema, no rash, no pallor. NEUROLOGIC: Cranial nerve examination II-XII intact. No focal deficits were noted. LABORATORY DATA: WBC is 4.8, hemoglobin 14.4, hematocrit is 41.4. Sodium was 136, potassium 5.1, ch loride is 98, BUN 7, creatinine 0.75, blood sugar now is 439. ASSESSMENT AND PLAN: 1. Acute intractable nausea and vomiting. 2. Acute diabetic gastroparesis. 3. Poorly controlled type 2 diabetes mellitus. PLAN: 1. To closely monitor this patient. Patient had intractable nausea and vomiting which did contribut e to some bleeding from the upper GI. So at this time, we will continue the clear liquids and will c losely monitor and consult GI in the morning. The patient is on Toradol. We will discontinue this m edication at this time which could contribute to peptic ulcer disease. Possibly patient could be als o having peptic ulcer problems. We will close evaluate along with the GI. 2. Patient is on domperidone, which seems to be working well. We will continue with this medication with the same dose as prescribed by her GI. 3. The patient has a poorly controlled type 2 diabetes mellitus as she could not take her insulin th is morning, but she has a pretty good A1c of 6.7 on her current insulin dose. We will continue the s uli NPH 10 units subcu b.i.d. and will closely monitor. The patient states she has very labile blood sugars and would then drop significantly for any high insulin doses, so will be very careful with th is and will continue on sliding scale insulin. 4. Moderate dehydration. We will continue the patient on normal saline at 100 mL an hour and will c losely monitor. 5. DVT prophylaxis, SCDs. I spent 70 minutes on this patient.
[2017-05-20] MEDS ORDERED: Pantoprazole 40 MG VIAL IVP SCH (22:15)
[2017-05-20] MEDS ORDERED: NPH, Human Insulin Isophane 300 UNIT/3 ML VIAL SC SCH (22:15)
[2017-05-20 22:25] LABS: ALT (SGPT) 12 U/L (8-55); AST (SGOT) 9 U/L (5-34); Albumin 3.8 g/dL (3.5-5.0); Alkaline Phosphatase 70 U/L (40-150); Anion Gap 11 mmol/L (10-20); BUN (Urea Nitrogen) 8 mg/dL (7.0-18.7); Bilirubin, Total 1.1 mg/dL (0.2-1.2); Calc. Creatinine Clearance 68 mL/min (70-130); Calcium 9.3 mg/dL (7.8-10.44); Carbon Dioxide 29 mmol/L (22-29); Chloride 99 mmol/L (98-107); Estimated GFR-MDRD 81; Globulin 2.3 g/dL (2.4-3.5); Glucose 438 mg/dL (70-105); Potassium 4.1 mmol/L (3.5-5.1); Protein, Total 6.1 g/dL (6.0-8.3); Sodium 135 mmol/L (136-145)
[2017-05-21 05:16] LABS: #Eosinphils 0.1 thou/uL (0.0-0.7); #Lymphocytes 1.7 thou/uL (1.20-3.40); #Monocytes 0.5 thou/uL (0.11-0.59); #Neutrophils 2.5 thou/uL (1.40-6.50); %Basophils 0.7 % (0.0-1.0); %Eosinophils 1.2 % (0.0-10.0); %Neutrophils 52.1 % (42.0-75.0); Hemoglobin 11.7 g/dL (12.0-16.0); Mean Corpuscular HGB CONC 33.6 g/dL (32.0-36.0); Mean Corpuscular Hemoglobin 31.6 pg (27.0-31.0); Mean Platelet Volume 6.6 fL (7.4-10.4); Platelet Count 194 thou/uL (130-400); RBC Distribution Width 12.1 % (11.5-14.5); White Blood Cell (WBC) Count 4.8 thou/uL (4.8-10.8)
[2017-05-21 05:44] LABS: Anion Gap 10 mmol/L (10-20); BUN (Urea Nitrogen) 7 mg/dL (7.0-18.7); Calc. Creatinine Clearance 76 mL/min (70-130); Calcium 9.2 mg/dL (7.8-10.44); Carbon Dioxide 28 mmol/L (22-29); Chloride 103 mmol/L (98-107); Estimated GFR-MDRD Greater than 90; Glucose 265 mg/dL (70-105); Potassium 3.9 mmol/L (3.5-5.1); Sodium 137 mmol/L (136-145)
[2017-05-21] MEDS: Sodium Chloride 0.9% 1,000 ML IV SCH ×3 (08:27→21:40)
[2017-05-21] MEDS: Pantoprazole 40 MG VIAL IVP SCH ×2 (08:28→21:09)
[2017-05-21] MEDS: NPH, Human Insulin Isophane 300 UNIT/3 ML VIAL SC SCH ×2 (08:29→21:46)
[2017-05-21 10:04] VITALS: BMI 16.8
[2017-05-21] MEDS ORDERED: Cepastat Lozenges 1 LOZ PO PRN (13:03)
[2017-05-21] MEDS ORDERED: Lidocaine Viscous Sol 2% 15 ml UD Cup SSP PRN (13:03)
--- NOTE | 2017-05-21 14:06 | PDOC.PN ---
- Subjective Encounter Start Date: 05/21/17 Encounter Start Time: 14:03 Subjective: feels much better. restarted domperidone. -: no nausea/vomiting.wants to eat -: c/o sore throat - Objective Resuscitation Status: Resuscitation Status FULL:Full Resuscitation MAR Reviewed: Yes Vital Signs & Weight: Vital Signs (12 hours) Temp Pulse Resp BP BP Pulse Ox 05/21/17 11:20 97.5 F L 97 16 96/58 L 100 05/21/17 08:00 98.0 F 98 16 05/21/17 07:14 98.0 F 98 16 123/73 99 05/21/17 04:23 98.4 F 104 H 16 112/74 98 Weight Admit Weight 99 lb 6 oz Weight 98 lb 4.8 oz I&O: 05/20/17 05/21/17 05/22/17 06:59 06:59 06:59 Intake Total 10 880 Balance 10 880 Result Diagrams: 05/21/17 04:19 05/21/17 04:18 Additional Labs: Accuchecks 05/21/17 05/21/17 05/20/17 11:24 06:17 20:53 POC Glucose 179 H 249 H 418 H Phys Exam - Physical Examination Constitutional: NAD cachectic HEENT: PERRLA, moist MMs, sclera anicteric mild phryangeal erythema.no post nasal drainage Neck: no nodes, no JVD, supple, full ROM Respiratory: no wheezing, no rales, no rhonchi, clear to auscultation bilateral Cardiovascular: RRR, no significant murmur, no rub, gallop Gastrointestinal: soft, non-tender, no distention, positive bowel sounds Musculoskeletal: no edema, pulses present Neurological: non-focal, normal sensation, moves all 4 limbs Psychiatric: normal affect, A&O x 3 Skin: no rash Dx/Plan (1) Intractable nausea and vomiting Code(s): R11.2 - NAUSEA WITH VOMITING, UNSPECIFIED Status: Acute (2) Diabetic gastroparesis Code(s): E11.43 - TYPE 2 DIABETES W DIABETIC AUTONOMIC (POLY)NEUROPATHY; K31.84 - GASTROPARESIS Status: Acute (3) Malnutrition Code(s): E46 - UNSPECIFIED PROTEIN-CALORIE MALNUTRITION Status: Acute Qualifiers: Malnutrition type: protein-calorie malnutrition Protein-calorie malnutrition severity: severe Qualified Code(s): E43 - Unspecified severe protein-calorie malnutrition (4) Poorly controlled diabetes mellitus Code(s): E11.65 - TYPE 2 DIABETES MELLITUS WITH HYPERGLYCEMIA Status: Chronic - Plan plan discussed w/ family, out of bed/ambulate, DVT proph w/SCDs symptoms better w Domperidone.continue -: start full liquid diet.GI following.appreciate input -: check Strept throat swab.lozenges ,lidocaine SSW. -: no indication for ABx for now.likley inlamation d/t vomiting -: Hemodynamically stable.Monitor for recurrent symptoms. * .am labs Review of Systems - Review of Systems Constitutional: negative: fever, chills, sweats, weakness, malaise, other ENT: Throat Pain Respiratory: negative: Cough, Dry, Shortness of Breath, Hemoptysis, SOB with Excertion, Pleuritic Pain, Sputum, Wheezing Cardiovascular: negative: chest pain, palpitations, orthopnea, paroxysmal nocturnal dyspnea, edema, light headedness, other Gastrointestinal: negative: Nausea, Vomiting, Abdominal Pain, Diarrhea, Constipation, Melena, Hematochezia, Other Genitourinary: negative: Dysuria, Frequency, Incontinence, Hematuria, Retention , Other Musculoskeletal: negative: Neck Pain, Shoulder Pain, Arm Pain, Back Pain, Hand Pain, Leg Pain, Foot Pain, Other Skin: negative: Rash, Lesions, Taz, Bruising, Other Neurological: negative: Weakness, Numbness, Incoordination, Change in Speech, Confusion, Seizures, Other - Medications/Allergies Allergies/Adverse Reactions: Allergies Allergy/AdvReac Type Severity Reaction Status Date / Time codeine Allergy Unknown Verified 05/20/17 18:10 amitriptyline Allergy Verified 05/20/17 18:10 haloperidol [From Haldol] Allergy Verified 05/20/17 18:10 insulin aspart [From Novolog] Allergy Verified 05/20/17 18:10 insulin glargine Allergy Verified 05/20/17 18:10 [From Lantus] latex Allergy Verified 05/20/17 18:10 metoclopramide [From Reglan] Allergy Verified 05/20/17 18:10 Medications: Current Medications Acetaminophen (Tylenol) 650 mg PO Q4H PRN PRN Reason: Headache/Fever or Pain Hydrocodone Bitart/Acetaminophen ([place] 5/325) 1 tab PO Q4H PRN PRN Reason: Moderate Pain (4-6) Dextrose/Water (Dextrose 50%) 25 gm SLOW IVP PRN PRN PRN Reason: Hypoglycemia Duloxetine HCl (Cymbalta) 20 mg PO BID [facility] Last Admin: 05/21/17 08:27 Dose: 20 mg Glucagon (Glucagon) 1 mg IM PRN PRN PRN Reason: Hypoglycemia Sodium Chloride (Normal Saline 0.9%) 1,000 mls @ 100 mls/hr IV .Q10H [facility] Last Admin: 05/21/17 08:27 Dose: 1,000 mls Dextrose/Water (D5w) 1,000 mls @ 0 mls/hr IV .Q0M PRN; As Directed PRN Reason: Hypoglycemia Insulin Human NPH (Humulin N) 10 unit SC BID [facility] Last Admin: 05/21/17 08:29 Dose: 10 unit Insulin Human Regular (Humulin R) 0 units SC .MODERATE SLIDING SC PRN PRN Reason: Moderate Correctional Scale Insulin Human Regular (Humulin R) 0 units SC .BEDTIME SLIDING SC PRN PRN Reason: Bedtime Correctional Scale Lidocaine HCl (Xylocaine 2% Viscous) 15 ml SSP TID PRN PRN Reason: Sore Throat Lorazepam (Ativan) 1 mg PO TIDPRN PRN PRN Reason: Anxiety Metoprolol Succinate (Toprol Xl) 12.5 mg PO BID [facility] Last Admin: 05/21/17 08:27 Dose: 12.5 mg Ondansetron HCl (Zofran Odt) 4 mg PO Q8H PRN PRN Reason: Nausea Ondansetron HCl (Zofran) 4 mg IVP Q6H PRN PRN Reason: Nausea/Vomiting Last Admin: 05/21/17 08:28 Dose: 4 mg Pantoprazole Sodium (Protonix) 40 mg IVP Q12HR [facility] Last Admin: 05/21/17 08:28 Dose: 40 mg Polyethylene Glycol (Miralax) 17 gm PO DAILYPRN PRN PRN Reason: Constipation Senna (Senokot) 8.6 tab PO BIDPRN PRN PRN Reason: Constipation Throat Lozenges (Cepastat Lozenges) 1 franki PO Q2H PRN PRN Reason: Sore Throat Tramadol HCl (Ultram) 50 mg PO Q4H PRN PRN Reason: Pain Last Admin: 05/21/17 06:18 Dose: 50 mg
[2017-05-21] MEDS ORDERED: Clopidogrel Bisulfate 75 MG TAB ONE (17:17)
[2017-05-21] MEDS: Insulin Regular 300 UNITS/3 ML VIAL SC PRN (17:29)
--- NOTE | 2017-05-21 17:59 | PRG ---
DATE OF SERVICE: 05/21/2017 SUBJECTIVE: Ms. Martin started taking domperidone last night. She took 1 last night and then took one before each meal today. She has had no nausea today. She feels much better. She feels like mae becerra can hear her bowel sounds more and overall feels like the medicine has had an immediate impact. OBJECTIVE: VITAL SIGNS: Temperature 98.3, blood pressure 93/54, pulse 97. GENERAL: She is in no acute distress. She is alert and oriented x3. HEENT: Eyes have no scleral icterus. LUNGS: Clear to auscultation bilaterally. HEART: Regular rate and rhythm without murmur. ABDOMEN: Soft, nontender, nondistended. Bowel sounds are present. EXTREMITIES: No lower extremity edema. IMPRESSION: Severe diabetic gastroparesis. She has had immediate improvement after starting domperi done yesterday. She is tolerating full liquids well. RECOMMENDATIONS: 1. Check baseline electrocardiogram. The domperidone can prolong the QT interval. She is noted to be on metoprolol as well. 2. Dosing of domperidone should be 10 mg 3 times a day prior to meals. She should not take more zoë n 30 mg daily at this time. 3. Advance to a low residue diet tomorrow. 4. Diabetic diet including small more frequent meals, low residue and low fat, and separation of the liquid and solid portions of the meal to avoid over-distention of the stomach were all discussed. 5. If she tolerates her diet well tomorrow morning, then she can likely discharge home tomorrow. Mae becerra can follow up in the office with Dr. Burgos in 2-4 weeks.
[2017-05-22 05:51] LABS: #Basophils 0.1 thou/uL (0.0-0.2); #Eosinphils 0.1 thou/uL (0.0-0.7); #Lymphocytes 2.1 thou/uL (1.20-3.40); #Monocytes 0.5 thou/uL (0.11-0.59); %Basophils 1.6 % (0.0-1.0); %Eosinophils 3.1 % (0.0-10.0); %Lymphocytes 43.7 % (21.0-51.0); %Monocytes 9.6 % (0.0-10.0); Hemoglobin 10.9 g/dL (12.0-16.0); Mean Corpuscular HGB CONC 35.3 g/dL (32.0-36.0); Mean Corpuscular Hemoglobin 33.2 pg (27.0-31.0); Mean Corpuscular Volume 94.2 fl (81.0-99.0); Mean Platelet Volume 6.7 fL (7.4-10.4); Platelet Count 176 thou/uL (130-400); Red Blood Cell (RBC) Count 3.28 mill/uL (4.20-5.40); White Blood Cell (WBC) Count 4.7 thou/uL (4.8-10.8)
[2017-05-22 06:25] LABS: ALT (SGPT) 8 U/L (8-55); AST (SGOT) 8 U/L (5-34); Albumin 3.3 g/dL (3.5-5.0); Alkaline Phosphatase 57 U/L (40-150); Anion Gap 9 mmol/L (10-20); BUN (Urea Nitrogen) 4 mg/dL (7.0-18.7); Bilirubin, Total 0.5 mg/dL (0.2-1.2); Calc. Creatinine Clearance 93 mL/min (70-130); Calcium 8.8 mg/dL (7.8-10.44); Carbon Dioxide 29 mmol/L (22-29); Chloride 105 mmol/L (98-107); Estimated GFR-MDRD Greater than 90; Globulin 1.9 g/dL (2.4-3.5); Glucose 88 mg/dL (70-105); Magnesium 1.8 mg/dL (1.6-2.6); Phosphorus 3.7 mg/dL (2.3-4.7); Potassium 3.8 mmol/L (3.5-5.1); Protein, Total 5.2 g/dL (6.0-8.3); Sodium 139 mmol/L (136-145)
[2017-05-22] MEDS: NPH, Human Insulin Isophane 300 UNIT/3 ML VIAL SC SCH (09:36)
[2017-05-22] MEDS: Pantoprazole 40 MG VIAL IVP SCH (09:36)
[2017-05-22] MEDS: Sodium Chloride 0.9% 1,000 ML IV SCH (10:46)
[2017-05-22] MEDS: Insulin Regular 300 UNITS/3 ML VIAL SC PRN (11:45)
--- NOTE | 2017-05-22 12:33 | PDOC.PN ---
- Subjective Encounter Start Date: 05/22/17 Encounter Start Time: 12:30 Subjective: feels good. no more N/V.no AP/diarrhea -: ate regular diet this morning - Objective Resuscitation Status: Resuscitation Status FULL:Full Resuscitation MAR Reviewed: Yes Vital Signs & Weight: Vital Signs (12 hours) Temp Pulse Resp BP Pulse Ox 05/22/17 07:45 98.7 F 92 14 111/69 05/22/17 03:48 98.6 F 91 18 102/59 L 100 Weight Admit Weight 99 lb 6 oz Weight 103 lb 1.6 oz I&O: 05/21/17 05/22/17 05/23/17 06:59 06:59 06:59 Intake Total 10 880 Balance 10 880 Result Diagrams: 05/22/17 04:09 05/22/17 04:09 Additional Labs: Accuchecks 05/22/17 05/22/17 05/21/17 11:41 06:30 21:46 POC Glucose 229 H 108 113 H 05/21/17 05/21/17 21:02 17:06 POC Glucose 41 L* 310 H Microbiology 05/21/17 Unknown Throat Group A Streptococcus Screen (ADDISON) - Final 05/21/17 Unknown Stool Stool Occult Blood (ADDISON) - Final Phys Exam - Physical Examination Constitutional: NAD cachectic HEENT: PERRLA, moist MMs, sclera anicteric, oral pharynx no lesions Neck: no nodes, no JVD, supple, full ROM Respiratory: no wheezing, no rales, no rhonchi, clear to auscultation bilateral Cardiovascular: RRR, no significant murmur Gastrointestinal: soft, non-tender, no distention, positive bowel sounds Musculoskeletal: no edema, pulses present Neurological: non-focal, normal sensation, moves all 4 limbs Psychiatric: normal affect, A&O x 3 Dx/Plan (1) Intractable nausea and vomiting Code(s): R11.2 - NAUSEA WITH VOMITING, UNSPECIFIED Status: Resolved (2) Diabetic gastroparesis Code(s): E11.43 - TYPE 2 DIABETES W DIABETIC AUTONOMIC (POLY)NEUROPATHY; K31.84 - GASTROPARESIS Status: Chronic (3) Malnutrition Code(s): E46 - UNSPECIFIED PROTEIN-CALORIE MALNUTRITION Status: Chronic Qualifiers: Malnutrition type: protein-calorie malnutrition Protein-calorie malnutrition severity: severe Qualified Code(s): E43 - Unspecified severe protein-calorie malnutrition (4) Poorly controlled diabetes mellitus Code(s): E11.65 - TYPE 2 DIABETES MELLITUS WITH HYPERGLYCEMIA Status: Chronic - Plan out of bed/ambulate, DVT proph w/SCDs clinically better w Domperidone.taking TID only.will hold Metoprolol -: avoid bradycardia/prolonged QT -: likley DC home later today if cleared by GI & tolerated lunch -: monitor BS closely.labile Diabetic * . Review of Systems - Review of Systems Constitutional: negative: fever, chills, sweats, weakness, malaise, other ENT: negative: Ear Pain, Ear Discharge, Nose Pain, Nose Discharge, Nose Congestion, Mouth Pain, Mouth Swelling, Throat Pain, Throat Swelling, Other Respiratory: negative: Cough, Dry, Shortness of Breath, Hemoptysis, SOB with Excertion, Pleuritic Pain, Sputum, Wheezing Cardiovascular: negative: chest pain, palpitations, orthopnea, paroxysmal nocturnal dyspnea, edema, light headedness, other Gastrointestinal: negative: Nausea, Vomiting, Abdominal Pain, Diarrhea, Constipation, Melena, Hematochezia, Other Genitourinary: negative: Dysuria, Frequency, Incontinence, Hematuria, Retention , Other Musculoskeletal: negative: Neck Pain, Shoulder Pain, Arm Pain, Back Pain, Hand Pain, Leg Pain, Foot Pain, Other Skin: negative: Rash, Lesions, Taz, Bruising, Other Neurological: negative: Weakness, Numbness, Incoordination, Change in Speech, Confusion, Seizures, Other - Medications/Allergies Allergies/Adverse Reactions: Allergies Allergy/AdvReac Type Severity Reaction Status Date / Time codeine Allergy Unknown Verified 05/20/17 18:10 amitriptyline Allergy Verified 05/20/17 18:10 haloperidol [From Haldol] Allergy Verified 05/20/17 18:10 insulin aspart [From Novolog] Allergy Verified 05/20/17 18:10 insulin glargine Allergy Verified 05/20/17 18:10 [From Lantus] latex Allergy Verified 05/20/17 18:10 metoclopramide [From Reglan] Allergy Verified 05/20/17 18:10 Medications: Current Medications Acetaminophen (Tylenol) 650 mg PO Q4H PRN PRN Reason: Headache/Fever or Pain Hydrocodone Bitart/Acetaminophen ([place] 5/325) 1 tab PO Q4H PRN PRN Reason: Moderate Pain (4-6) Dextrose/Water (Dextrose 50%) 25 gm SLOW IVP PRN PRN PRN Reason: Hypoglycemia Duloxetine HCl (Cymbalta) 20 mg PO BID [facility] Last Admin: 05/22/17 09:35 Dose: 20 mg Glucagon (Glucagon) 1 mg IM PRN PRN PRN Reason: Hypoglycemia Dextrose/Water (D5w) 1,000 mls @ 0 mls/hr IV .Q0M PRN; As Directed PRN Reason: Hypoglycemia Sodium Chloride (Normal Saline 0.9%) 1,000 mls @ 75 mls/hr IV .[id number] [facility] Last Admin: 05/22/17 10:46 Dose: Not Given Insulin Human NPH (Humulin N) 10 unit SC BID [facility] Last Admin: 05/22/17 09:36 Dose: 10 unit Insulin Human Regular (Humulin R) 0 units SC .MODERATE SLIDING SC PRN PRN Reason: Moderate Correctional Scale Last Admin: 05/22/17 11:45 Dose: 2 unit Insulin Human Regular (Humulin R) 0 units SC .BEDTIME SLIDING SC PRN PRN Reason: Bedtime Correctional Scale Lidocaine HCl (Xylocaine 2% Viscous) 15 ml SSP TID PRN PRN Reason: Sore Throat Lorazepam (Ativan) 1 mg PO TIDPRN PRN PRN Reason: Anxiety Last Admin: 05/22/17 03:52 Dose: 1 mg Metoprolol Succinate (Toprol Xl) 12.5 mg PO BID [facility] Last Admin: 05/22/17 09:35 Dose: 12.5 mg Ondansetron HCl (Zofran Odt) 4 mg PO Q8H PRN PRN Reason: Nausea Ondansetron HCl (Zofran) 4 mg IVP Q6H PRN PRN Reason: Nausea/Vomiting Last Admin: 05/21/17 08:28 Dose: 4 mg Pantoprazole Sodium (Protonix) 40 mg IVP Q12HR [facility] Last Admin: 05/22/17 09:36 Dose: 40 mg Polyethylene Glycol (Miralax) 17 gm PO DAILYPRN PRN PRN Reason: Constipation Senna (Senokot) 8.6 tab PO BIDPRN PRN PRN Reason: Constipation Throat Lozenges (Cepastat Lozenges) 1 franki PO Q2H PRN PRN Reason: Sore Throat Tramadol HCl (Ultram) 50 mg PO Q4H PRN PRN Reason: Pain Last Admin: 05/21/17 06:18 Dose: 50 mg
[2017-05-22 12:35] VITALS: BP 117/76; TEMP 98.5
--- NOTE | 2017-05-23 00:23 | DIS ---
DATE OF ADMISSION: 05/20/2017 DATE OF DISCHARGE: 05/22/2017 CONDITION AT THE TIME OF DISCHARGE: Stable and improved. DISCHARGE DIAGNOSES: 1. Intractable nausea and vomitis ng due to diabetic gastroparesis. 2. Labile diabetes mellitus, poorly controlled. 3. Significant protein-calorie malnutrition. 4. Diabetic gastroparesis. DISCHARGE MEDICATIONS: Remain as the same as home medications. 1. Domperidone 10 mg p.o. t.i.d. 2. as needed. 3. MiraLax as needed. 4. Zofran as needed. 5. NPH 10 units b.i.d. 6. Metoprolol succinate 12.5 mg b.i.d. Please note that this patient's metoprolol was stopped becau se of risk of prolonged QT with domperidone and bradycardia. 7. Toradol as needed. 8. Cymbalta 20 mg p.o. b.i.d. PRIMARY CARE PHYSICIAN: Jeremy Ramon MD CONSULTATIONS IN-HOUSE: Gastroenterology, Dr. Naldo Emery. PROCEDURES: None. HOSPITAL COURSE: Ms. Martin is a 41-year-old female with known history of diabetic gastroparesis, came in to the emergency room with complaints of intractable nausea and vomiting. She was recently s tarted on domperidone, but has not been able to take it as it was still in the (01:15). She wa s admitted as per the suggestion of teacher advisor, Dr. Emery. Upon presentation, her blood suga r was high in the 400s. She was admitted for further evaluation and care and GI was consulted. Plea se see admission history and physical for further details. HOSPITAL COURSE: The patient was started on domperidone and had significant immediate improvement in her symptoms. Throughout her hospitalization, she had no nausea, no vomiting. Because of the risk of prolonged QT, her metoprolol was stopped as her blood pressure was also doing very well. She will further discuss it with her primary care physician. On the day of discharge, she is hemodynamically stable and has been transitioned from clear to full l iquids to regular diet and tolerated it very well. She was cleared by Dr. Emery for discharge as wel l. Please see hospitalist progress note from today's date for further detail including [id number] inte raction.
== END 2017-05-22 14:41 | disposition home or self-care (01) | DRG 74 ==
LOC: 2SW 15:26 → EEVIPCON 15:26
PROVIDERS: ADMIT Internal Medicine; ATTEND Internal Medicine
DX: E11.40 Type 2 diabetes mellitus with diabetic neuropathy, unspecified (principal); E46 Unspecified protein-calorie malnutrition; Z68.1 Body mass index [BMI] 19.9 or less, adult; K31.84 Gastroparesis; E11.65 Type 2 diabetes mellitus with hyperglycemia; E11.43 Type 2 diabetes mellitus with diabetic autonomic (poly)neuropathy
CPT/HCPCS: 36415; 36416; 80048; 80053; 82274; 83735; 84100; 85025; 87081; 87430; 93005; 93010; C9113; J1815; J2405

== ENCOUNTER 2017-06-23 07:32 | Inpatient (IN) | payer OTHER ==
[2017-06-23] MEDS ORDERED: Ondansetron ODT 4 MG TAB ONE (07:46)
[2017-06-23 08:01] LABS: #Lymphocytes 1.2 thou/uL (1.20-3.40); #Neutrophils 11.1 thou/uL (1.40-6.50); %Basophils 0.3 % (0.0-1.0); %Eosinophils 0.2 % (0.0-10.0); %Lymphocytes 8.6 % (21.0-51.0); %Monocytes 7.3 % (0.0-10.0); %Neutrophils 83.5 % (42.0-75.0); Hemoglobin 13.4 g/dL (12.0-16.0); Mean Corpuscular HGB CONC 34.3 g/dL (32.0-36.0); Mean Corpuscular Hemoglobin 31.4 pg (27.0-31.0); Mean Corpuscular Volume 91.6 fl (81.0-99.0); Mean Platelet Volume 6.3 fL (7.4-10.4); Platelet Count 263 thou/uL (130-400); RBC Distribution Width 11.5 % (11.5-14.5); Red Blood Cell (RBC) Count 4.26 mill/uL (4.20-5.40); White Blood Cell (WBC) Count 13.3 thou/uL (4.8-10.8)
[2017-06-23] MEDS ORDERED: Promethazine HCl 25 MG/ML VIAL ONE (08:18)
[2017-06-23 08:20] LABS: ALT (SGPT) 13 U/L (8-55); AST (SGOT) 16 U/L (5-34); Albumin 4.7 g/dL (3.5-5.0); Alkaline Phosphatase 75 U/L (40-150); Anion Gap 23 mmol/L (10-20); BUN (Urea Nitrogen) 20 mg/dL (7.0-18.7); Bilirubin, Total 0.9 mg/dL (0.2-1.2); Calc. Creatinine Clearance 0 mL/min (70-130); Calcium 10.1 mg/dL (7.8-10.44); Carbon Dioxide 22 mmol/L (22-29); Chloride 96 mmol/L (98-107); Estimated GFR-MDRD 73; Glucose 391 mg/dL (70-105); Potassium 4.1 mmol/L (3.5-5.1); Protein, Total 7.7 g/dL (6.0-8.3); Sodium 137 mmol/L (136-145)
[2017-06-23 08:42] LABS: BHCG - Serum Negative (NEGATIVE); Pregs Control Background? CLEAR/WHITE (CLR/WHITE); Pregs Control Bar Appear? YES (CONTROL BAR)
--- NOTE | 2017-06-23 08:52 | RAD ---
CHEST 1 VIEW: HISTORY: A 42-year-old female with a history of vomiting and nausea. History of diabetes and gastroparesis. FINDINGS: Heart size is normal. The lungs are clear. No pneumonia, edema, or pleural effusion. IMPRESSION: No acute intrathoracic disease. POS: [facility]
[2017-06-23] MEDS ORDERED: Pantoprazole 40 MG VIAL ONE (09:19)
[2017-06-23] MEDS ORDERED: Ondansetron HCl/PF 4 MG/2 ML Vial ONE (09:43)
[2017-06-23 10:05] LABS: Bilirubin Negative (Negative); Blood, Urine Negative (Negative); Clarity CLEAR (Clear); Glucose, Urine (Dipstick) >=1000 mg/dL (Negative); Leukocyte Negative (Negative); Nitrite Negative (Negative); Protein, Urine (Dipstick) Negative (Neg-Trace); Specific Gravity, Urine 1.035 (1.002-1.036); Urobilinogen 0.2 mg/dL (0.2-1.0); pH, Urine 5.5 (5.0-9.0)
[2017-06-23 10:06] LABS: Pregnancy Test - Urine (BHCG) Negative (Negative); Pregu Control Background? CLEAR/WHITE (CLR/WHITE); Pregu Control Bar Appear? YES (CONTROL BAR); Specific Gravity 1.035 (1.002-1.036)
[2017-06-23 10:12] LABS: Base Excess-Venous -0.9 mmol/L (0 (+/- 2.5)); CO2 Tension (PvCO2) 34.9 mmHg (41.0-51.0); Calcium, Ionized 1.08 mmol/L (1.12-1.32); O2 Tension (PvO2) 46.9 mmHg (35.0-45.0); T. Carbon Dioxide 24.1 mmol/L (1.0-85.0); pH (Venous) 7.428 (7.35-7.45)
[2017-06-23] MEDS ORDERED: Lorazepam 2 MG/ML VIAL ONE (10:37)
[2017-06-23] MEDS ORDERED: Lidocaine Viscous Sol 2% 15 ml UD Cup ONE (10:59)
[2017-06-23] MEDS ORDERED: Mag-Al 1200 mg/1200 mg/30 ML UDCUP ONE (10:59)
[2017-06-23] MEDS ORDERED: Sodium Chloride 0.9% 1,000 ML IV SCH ×2 (12:15→16:45)
--- NOTE | 2017-06-23 14:00 | RAD ---
AP VIEW ABDOMEN WELL UPRIGHT VIEW ABDOMEN: HISTORY: Patient with retching. Unable to take off glucose monitor. FINDINGS: AP, supine, and upright views of the abdomen are obtained. Abdominal gas pattern is nonspecific. No evidence of obstruction or ileus seen. No dilated loops of bowel seen. No evidence of free intraperitoneal air is seen. Again, a left-sided glucose monitor i s in place. IMPRESSION: Unremarkable 2 views abdomen. POS: [facility]
[2017-06-23 14:30] LABS: Lactic Acid 1.6 mmol/L (0.5-2.2)
--- NOTE | 2017-06-23 15:40 | CON ---
DATE OF CONSULTATION: 06/23/2017 HISTORY OF PRESENT ILLNESS: The patient is a 42-year-old female patient of Dr. Nelson who has a long history of diabetic gastroparesis. She has developed diabetes mellitus and gastroesophage al reflux. She has had recent hospitalizations in April and May of this year. She was doing well over the last 4 weeks and developed a 2-day history of more persistent nausea and vomiting. She does not have any real specific abdominal pain. She has had some blood-streaked material in her vanda sis. She reports she was getting dehydrated and dehydrated and came to the hospital for further mk gement. Discharge summary from 05/22/2017 showed discharge diagnoses of intractable nausea and vomit ing, diabetes mellitus, malnutrition and diabetic gastroparesis. She was discharged on domperidone 1 0 mg p.o. t.i.d., MiraLax p.r.n., Zofran p.r.n., NPH insulin, metoprolol, Toradol, and Cymbalta. PAST MEDICAL HISTORY: 1. Gastroesophageal reflux disease. 2. Chronic constipation. 3. Diabetes mellitus. 4. Diabetic gastroparesis. 5. Esophageal stricture. 6. Malnutrition and weight loss. 7. Depression. PAST SURGICAL HISTORY: Negative. ALLERGIES: Include LATEX, DAIRY PRODUCTS, CODEINE, and REGLAN. SOCIAL HISTORY: Occasional alcohol use. Does not smoke. FAMILY HISTORY: Negative for GI or liver disease. REVIEW OF SYSTEMS: Constitutional: No fever or chills. Positive for weight loss. Eyes: No blurre d vision or double vision. ENT: No sore throat or earaches. Cardiovascular: No chest pain or palp itations. Pulmonary: No shortness of breath, cough or wheezing. Gastrointestinal: See above. Gen itourinary: No hematuria or dysuria. Musculoskeletal: No joint pain or muscle weakness. Skin: No rashes. Neurologic: No numbness or seizure activity. LABORATORY DATA: Looking at medical records from 01/22/2017, the patient had evaluation in [facility] included an upper endoscopy, ultrasound and CT scan which was all reportedly to be normal per [facility] members. Abdominal films show relatively paucity of gas, the gastric bubble is normal. Chest x-ray is negativ e. ASSESSMENT: 1. Diabetic gastroparesis. 2. Diabetes mellitus. 3. Hematemesis - suspect possibly a small Eloina-Alvarez tear or maybe some bleeding from retching. 4. Gastroesophageal reflux disease. 5. Chronic constipation. RECOMMENDATIONS: 1. Continue all present medications. 2. IV erythromycin. 3. IV PPI. 4. IV antiemetics. 5. We will follow with you.
[2017-06-23] MEDS ORDERED: Dextrose 5% in Water 1,000 ML IV PRN ×3 (16:38→17:34)
[2017-06-23] MEDS ORDERED: Dextrose 50% Abboject 50 ML SYRINGE SLOW IVP PRN ×3 (16:38→17:34)
[2017-06-23] MEDS ORDERED: HumaLOG 300 UNITS/3 ML VIAL SC PRN (16:41)
[2017-06-23] MEDS ORDERED: Polyethylene Glycol 3350 17 GM Packet PO PRN (16:42)
--- NOTE | 2017-06-23 16:49 | HP ---
DATE OF ADMISSION: 06/23/2017 ADMITTING PHYSICIAN: Dr. Arcadio Fletcher. PRIMARY CARE PHYSICIAN: Dr. Jefferson. CHIEF COMPLAINT: Nausea, vomiting, and dehydration. HISTORY OF PRESENT ILLNESS: This is a pleasant 42-year-old female with history of diabetic gastropar esis. She was recently hospitalized with intractable nausea and vomiting earlier this year. She had been doing well and over the last few days she developed more persistent nausea and vomiting. She r eports that she has had poor p.o. intake over that course of time. She also reports that she has see n streaks of blood in her emesis. She reports some constipation. Denies chest pain, shortness of br eath, fevers or chills. REVIEW OF SYSTEMS: The following complete review of systems was negative, unless otherwise mentioned in the HPI or below: Constitutional: Weight loss or gain, sense of well-being, ability to conduct usual activities, exerc ise tolerance. Skin/Breast: Rash, itching, changes in hair growth or loss, nail changes, breast lumps, tenderness, swelling, nipple discharge. Eyes: Vision, double vision, tearing, blind spots, pain. ENT/Mouth: Headaches (location, time of onset, duration, precipitating factors), vertigo, lightheade dness, injury. Vision, double vision, tearing, blind spots, pain, nose bleeding, colds, obstruction, discharge, dental difficulties, gingival bleeding, dentures, neck stiffness, pain, tenderness, masses in thyroid or other areas Cardiovascular: Precordial pain, substernal distress, palpitations, syncope, dyspnea on exertion, or thopnea, nocturnal paroxysmal dyspnea, edema, cyanosis, hypertension, heart murmurs, varicosities, ph lebitis, claudication. Respiratory: Pain, shortness of breath, wheezing, stridor, cough, hemoptysis, fever or night sweats Gastrointestinal: Poor appetite, dysphagia, indigestion, abdominal pain, heartburn, eructation, naus ea, vomiting, hematemesis, jaundice, constipation, or diarrhea, abnormal stools (kerline-colored, tarry, bloody, greasy, foul smelling), flatulence, hemorrhoids, recent changes in bowel habits. Genitourinary: Urgency, frequency, dysuria, nocturia, hematuria, polyuria, oliguria, unusual (or servando nge in) color of urine, stones, hesitancy, change in size of stream, dribbling, acute retention or in continence, libido, potency. Musculoskeletal: Pain, swelling, redness or heat of muscles or joints, limitation, of motion, muscul ar weakness, atrophy, cramps. Neurologic/Psychiatric: Convulsions, paralyses, tremor, incoordination, paraesthesias, difficulties with memory of speech, sensory or motor disturbances, or muscular coordination (ataxia, tremor), emot ional problems, anxiety, depression, previous psychiatric care, unusual perceptions, hallucinations. Allergy/Immunologic: Skin rash, anemia, bleeding tendency, polydipsia, polyuria, intolerance to heat or cold. PAST MEDICAL HISTORY: Significant for diabetes mellitus, diabetic gastroparesis, GERD, chronic const ipation, malnutrition, and depression. She also has a history of esophageal strictures. PAST SURGICAL HISTORY: None. FAMILY HISTORY: Reviewed and noncontributory. SOCIAL HISTORY: She drinks alcohol socially. Denies illicit drugs or cigarette smoke. DRUG ALLERGIES: Include CODEINE, REGLAN, and DAIRY PRODUCTS. HOME MEDICATIONS: Include domperidone 10 mg t.i.d., metoprolol with a dose of 12.5 mg b.i.d., Ativan 1 mg p.o. t.i.d., Toradol 10 mg q.8 as needed, NPH insulin 10 units b.i.d., Zofran 4 mg q.8 as neede d, MiraLax p.o. as needed, and Ultram 50 mg q.4 as needed. PHYSICAL EXAMINATION: GENERAL: The patient is in no acute distress, pleasant, cooperative. HEAD: Normocephalic, atraumatic. EYES: PERRL. Extraocular muscles are intact. CARDIAC: Sinus tachycardia. LUNGS: Clear to auscultation, no rhonchi, no wheezes. ABDOMEN: Nontender and nondistended. EXTREMITIES: No clubbing, cyanosis or edema. NEUROLOGIC: Full range of motion of all extremities. Alert and oriented x3. LABORATORY DATA AND IMAGING DATA: CBC shows white count of 13.3, hemoglobin 13.4, hematocrit 39, and platelets 263. Chem-7 shows sodium 137, potassium 4.1, chloride 96, BUN 20, creatinine 0.86, glucos e 391, calcium 10.1, AST 16, ALT 13, and albumin 4.7. Serum is negative. Beta hydroxybuty rate 4.8. Urinalysis yellow, clear, greater than 1000 glucose, negative for nitrite, negative for le ukocyte esterase. Abdominal x-ray is unremarkable. Chest x-ray no acute intrathoracic disease. ASSESSMENT AND PLAN: 1. Diabetic gastroparesis. 2. Diabetes mellitus, uncontrolled. We will rule out diabetic ketoacidosis. 3. Hematemesis. 4. Hypertension. PLAN: The patient will be admitted to a medical bed. We will treat her with sliding scale insulin w ith q.a.c. and at bedtime CBG. Gastroenterology has been consulted and is following along with the p atient. They suggest IV Protonix and bowel rest at this time. We will provide the patient with aggr essive fluid resuscitation in light of her hyperglycemia and once again we will monitor her for devel oping DKA and treat her accordingly.
[2017-06-23] MEDS ORDERED: Insulin Regular 300 UNITS/3 ML VIAL SC SCH (17:00)
[2017-06-23] MEDS: Ondansetron HCl/PF 4 MG/2 ML Vial IVP PRN (17:21)
[2017-06-23 18:10] VITALS: BMI 17.6
[2017-06-23] MEDS: INSULIN ASPART SC PRN ×2 (18:26→20:04)
[2017-06-23] MEDS: Sodium Chloride 0.9% 1,000 ML IV SCH (18:31)
[2017-06-23] MEDS: Pantoprazole 40 MG VIAL IVP SCH (20:05)
[2017-06-23] MEDS: NPH, Human Insulin Isophane 300 UNIT/3 ML VIAL SC SCH (20:06)
[2017-06-23] MEDS ORDERED: FLU VACC QS2017-18 36 mo. & older 0.5 ML SYRINGE IM ONE (21:00)
[2017-06-24] MEDS: Sodium Chloride 0.9% 1,000 ML IV SCH ×4 (00:59→20:39)
[2017-06-24] MEDS: Ondansetron HCl/PF 4 MG/2 ML Vial IVP PRN (04:22)
[2017-06-24] MEDS: INSULIN ASPART SC PRN (04:31)
[2017-06-24 04:46] LABS: #Lymphocytes 1.4 thou/uL (1.20-3.40); #Neutrophils 6.4 thou/uL (1.40-6.50); %Basophils 0.2 % (0.0-1.0); %Eosinophils 0.1 % (0.0-10.0); %Lymphocytes 15.5 % (21.0-51.0); %Monocytes 11.4 % (0.0-10.0); %Neutrophils 72.8 % (42.0-75.0); Hemoglobin 10.3 g/dL (12.0-16.0); Mean Corpuscular HGB CONC 34.7 g/dL (32.0-36.0); Mean Corpuscular Hemoglobin 31.9 pg (27.0-31.0); Mean Corpuscular Volume 91.9 fl (81.0-99.0); Mean Platelet Volume 6.3 fL (7.4-10.4); Platelet Count 218 thou/uL (130-400); RBC Distribution Width 11.5 % (11.5-14.5); Red Blood Cell (RBC) Count 3.23 mill/uL (4.20-5.40); White Blood Cell (WBC) Count 8.8 thou/uL (4.8-10.8)
[2017-06-24 04:55] LABS: Anion Gap 12 mmol/L (10-20); BUN (Urea Nitrogen) 15 mg/dL (7.0-18.7); Calc. Creatinine Clearance 81 mL/min (70-130); Calcium 8.7 mg/dL (7.8-10.44); Carbon Dioxide 22 mmol/L (22-29); Chloride 109 mmol/L (98-107); Estimated GFR-MDRD Greater than 90; Glucose 185 mg/dL (70-105); Potassium 3.8 mmol/L (3.5-5.1); Sodium 139 mmol/L (136-145)
[2017-06-24] MEDS: Pantoprazole 40 MG VIAL IVP SCH ×2 (07:18→20:35)
[2017-06-24] MEDS: NPH, Human Insulin Isophane 300 UNIT/3 ML VIAL SC SCH ×2 (08:43→20:35)
[2017-06-24] MEDS ORDERED: Promethazine HCl 25 MG/ML VIAL IM/IV PRN (09:16)
--- NOTE | 2017-06-24 09:26 | PRG ---
DATE OF SERVICE: 06/24/2017 SUBJECTIVE: The patient reports she is still having problems with nausea or vomiting. She is having no abdominal pain. She has not had a bowel movement. OBJECTIVE: VITAL SIGNS: Temperature is 97.6, pulse 110, respiratory rate 16, blood pressure 142/81. CHEST: Clear. CARDIOVASCULAR: Regular rate and rhythm. ABDOMEN: Soft and nontender without organomegaly or masses. LABORATORY DATA: Shows white blood cell count of 8.3, hemoglobin of 10.3, hematocrit 29.7. Chemistr ies show chloride 109 and glucose 185. ASSESSMENT: 1. Persistent nausea and vomiting. 2. Diabetic gastroparesis. 3. Constipation. RECOMMENDATIONS: 1. Could not use erythromycin as it was unavailable according to pharmacy. 2. Trial of Amitiza. 3. Switch from Zofran to Phenergan.
[2017-06-24] MEDS: Promethazine HCl 25 MG in Sodium Chloride 0.9% 50 ML IVPB PRN ×2 (10:36→17:01)
[2017-06-24] MEDS: Lorazepam 1 MG TAB PO PRN (12:13)
--- NOTE | 2017-06-24 14:35 | PDOC.PN ---
- Subjective Encounter Start Date: 06/24/17 Encounter Start Time: 14:20 Subjective: f/u for DM gastroparesis on IVF's, Protonix and Phenergan. Still with abd -: pain and nausea drinking small amounts of water and Gatorade. No BM. - Objective Resuscitation Status: Resuscitation Status FULL:Full Resuscitation MAR Reviewed: Yes Vital Signs & Weight: Vital Signs (12 hours) Temp Pulse Resp BP Pulse Ox 06/24/17 08:00 97.6 F 110 H 16 142/81 H 99 06/24/17 04:35 98.7 F 113 H 16 130/81 100 Weight Admit Weight 103 lb Weight 103 lb I&O: 06/23/17 06/24/17 06/25/17 06:59 06:59 06:59 Intake Total 2900 240 Output Total 800 Balance 2100 240 Result Diagrams: 06/24/17 03:59 06/24/17 03:59 Additional Labs: Accuchecks 06/24/17 06/24/17 06/24/17 11:09 08:37 04:30 POC Glucose 171 H 175 H 176 H 06/23/17 06/23/17 19:40 16:47 POC Glucose 212 H 275 H Laboratory Tests 06/23/17 07:49 B-Hydroxybutyrate 4.79 H Radiology Reviewed by me: Yes (KUB - negative) Phys Exam - Physical Examination Constitutional: NAD alert, responsive HEENT: PERRLA, oral pharynx no lesions Neck: no JVD, supple Respiratory: no wheezing, clear to auscultation bilateral Cardiovascular: RRR mild TTP diffusely Gastrointestinal: soft, no distention, positive bowel sounds Musculoskeletal: no edema, pulses present Neurological: normal sensation, moves all 4 limbs Psychiatric: A&O x 3 Skin: normal turgor, cap refill <2 seconds Dx/Plan (1) Diabetic gastroparesis Code(s): E11.43 - TYPE 2 DIABETES W DIABETIC AUTONOMIC (POLY)NEUROPATHY; K31.84 - GASTROPARESIS Status: Acute Comment: Acute/subacute with mild improvement , trial IV Erythromycin, continue Domperidone, Phenergan, IVF's, clear liquids (2) Intractable nausea and vomiting Code(s): R11.2 - NAUSEA WITH VOMITING, UNSPECIFIED Status: Acute Comment: See #1 above, mild improvement (3) Diabetes mellitus, type II, insulin dependent Code(s): E11.9 - TYPE 2 DIABETES MELLITUS WITHOUT COMPLICATIONS; 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
[2017-06-24] MEDS ORDERED: DOMPERIDONE 10 MG PO SCH (15:00)
[2017-06-24] MEDS: Lubiprostone 24 MCG CAP PO SCH (17:01)
[2017-06-24] MEDS: Dronabinol 2.5 MG CAP PO SCH (19:41)
[2017-06-24] MEDS ORDERED: DRONABINOL 10 MG PO SCH (21:00)
[2017-06-24] MEDS ORDERED: Zolpidem Tartrate 5 MG TAB PO SCH (21:00)
[2017-06-24] MEDS: Promethazine HCl 25 MG in Sodium Chloride 0.9% 100 ML IVPB PRN (22:54)
[2017-06-25] MEDS: Lorazepam 1 MG TAB PO PRN (01:33)
[2017-06-25] MEDS: Promethazine HCl 25 MG in Sodium Chloride 0.9% 100 ML IVPB PRN (04:57)
[2017-06-25] MEDS: Sodium Chloride 0.9% 1,000 ML IV SCH ×2 (04:58→15:44)
[2017-06-25 05:32] LABS: #Lymphocytes 1.2 thou/uL (1.20-3.40); #Monocytes 0.5 thou/uL (0.11-0.59); #Neutrophils 4.2 thou/uL (1.40-6.50); %Basophils 0.4 % (0.0-1.0); %Eosinophils 0.5 % (0.0-10.0); %Lymphocytes 19.9 % (21.0-51.0); %Neutrophils 70.3 % (42.0-75.0); Hemoglobin 10.4 g/dL (12.0-16.0); Mean Corpuscular Hemoglobin 32.5 pg (27.0-31.0); Mean Platelet Volume 6.8 fL (7.4-10.4); Platelet Count 178 thou/uL (130-400); RBC Distribution Width 11.3 % (11.5-14.5); Red Blood Cell (RBC) Count 3.21 mill/uL (4.20-5.40)
[2017-06-25 06:02] LABS: Anion Gap 12 mmol/L (10-20); BUN (Urea Nitrogen) 6 mg/dL (7.0-18.7); Calc. Creatinine Clearance 93 mL/min (70-130); Carbon Dioxide 22 mmol/L (22-29); Chloride 106 mmol/L (98-107); Estimated GFR-MDRD Greater than 90; Glucose 161 mg/dL (70-105); Potassium 3.4 mmol/L (3.5-5.1); Sodium 137 mmol/L (136-145)
[2017-06-25 06:03] LABS: ALT (SGPT) 10 U/L (8-55); AST (SGOT) 15 U/L (5-34); Albumin 3.7 g/dL (3.5-5.0); Alkaline Phosphatase 61 U/L (40-150); Bilirubin, Total 0.5 mg/dL (0.2-1.2); Calcium 8.4 mg/dL (7.8-10.44); Globulin 2.2 g/dL (2.4-3.5); Protein, Total 5.9 g/dL (6.0-8.3)
[2017-06-25] MEDS: Pantoprazole 40 MG VIAL IVP SCH ×2 (09:22→20:51)
[2017-06-25] MEDS: Lubiprostone 24 MCG CAP PO SCH ×2 (09:24→19:41)
[2017-06-25] MEDS: NPH, Human Insulin Isophane 300 UNIT/3 ML VIAL SC SCH ×2 (09:27→20:59)
--- NOTE | 2017-06-25 10:57 | PRG ---
DATE OF SERVICE: 06/25/2017 SUBJECTIVE: The patient is feeling worse today. She continues to have nausea. Still continues to h ave vomiting. Erythromycin was not available according to pharmacy. She is gotten her domperidone f rom home and will begin that today. She is having some diarrhea. OBJECTIVE: VITAL SIGNS: Temperature 98.4, pulse 98, respiratory rate 20, blood pressure 149/86. CHEST: Clear. CARDIOVASCULAR: Regular rate and rhythm. ABDOMEN: Soft, nontender, without organomegaly or masses. LABORATORY DATA: Potassium 3.4, BUN 6, creatinine 0.59, glucose 161, albumin 37. CBC shows a white blood cell count of 6.0, hemoglobin 10.4, hematocrit 29.8. ASSESSMENT: 1. Intractable nausea, vomiting. 2. Diabetic gastroparesis. 3. Diarrhea. RECOMMENDATIONS: 1. Check for C. diff. 2. Trial of Amitiza. 3. Phenergan. 4. Domperidone. 5. We will discuss ERYTHROMYCIN with the pharmacy. 6. We will discuss with Dr. Burgos.
--- NOTE | 2017-06-25 11:20 | PQF ---
Date: 06-27-17 ATTN: DR. LUTHER GOMEZ Please exercise your independent, professional judgment in responding to the clarification form. Clinical indicators are provided on the bottom of this form for your review Please check appropriate box(s): [ x ] Protein Calorie Malnutrition: [ ] Mild [ x ] Moderate [ ] Severe [ ] Cachexia [ ] Other diagnosis [ ] Unable to determine In addition, please specify: Present on Admission (POA): [ x ] Yes [ ] No [ ] Unable to determine CLINICAL INDICATORS - SIGNS / SYMPTOMS / LABS BMI of 17.7 H&P: NAUSEA, VOMITING, AND DEHYDRATION. SHE REPORTS THAT SHE HAS HAD POOR PO INTAKE OVER THE COURSE OF TIME. 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 Today the pt continues to have N/V per GI note. Per past admit notes the pt weighed 120# November 2016, 103# 05/07/17, and 99# 05/20/17. 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 1. Recommend downgrading to full vs. clear liquids while N/V persists. 2. Recommend adding Glucerna Shakes TID. 3. Provide bowel regimen and antiemetics prn. 4. Monitor electrolytes for refeeding syndrome. 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 Recommend downgrading to full vs. clear liquids while N/V persists. 2. Recommend adding Glucerna Shakes TID. 3. Provide bowel regimen and antiemetics prn. 4. Monitor electrolytes for refeeding syndrome. Moderate Malnutrition (in acute illness) Energy Intake: <75% of estimated energy requirement for > 7 days Weight Loss: 1-2%/1 week; 5%/ 1 month; 7.5%/3 months Other: mild body fat loss; mild muscle mass loss; mild fluid accumulation; Severe Malnutrition (in acute illness) Energy Intake: < 50% of estimated energy requirement for > 5 days Weight Loss: >1-2%/1 week; >5%/1 month; >7.5%/3 months Other: moderate body fat loss; moderate muscle mass loss; moderate- severe fluid accumulation; measurably reduced comparison shopper strength Moderate Malnutrition (in chronic illness) Energy Intake: <75% of estimated energy requirement for >1 month Weight Loss: 5%/1 month; 7.5%/3 months; 10%/6 months; 20%/1 year Other: mild body fat loss; mild muscle mass loss; mild fluid accumulation Severe Malnutrition (in chronic illness) Energy Intake: <75% of estimated energy requirement for >1 month Weight Loss: >5%/1 month; >7.5%/3 months; >10%/6 months; >20%/1 year Other: severe body fat loss; severe muscle mass loss; severe fluid accumulation ; measurably reduced comparison shopper strength (This form is maintained as a part of the permanent medical record) 2014 [employer]. All Rights Reserved [email or web address] Office: [phone] [place]
--- NOTE | 2017-06-25 14:44 | PDOC.PN ---
- Subjective Encounter Start Date: 06/25/17 Encounter Start Time: 13:45 Subjective: f/u for DM gastroparesis with slow improvement. Receiving Domperidone -: Amitiza and Phenergan. No persistent nausea this am. Poor po intake overall - Objective Resuscitation Status: Resuscitation Status FULL:Full Resuscitation MAR Reviewed: Yes Vital Signs & Weight: Vital Signs (12 hours) Temp Pulse Resp BP Pulse Ox 06/25/17 12:00 98.7 F 93 16 158/97 H 97 06/25/17 07:41 98.4 F 98 20 100 06/25/17 07:20 98.3 F 103 H 16 165/98 H 100 Weight Admit Weight 103 lb Weight 103 lb I&O: 06/24/17 06/25/17 06/26/17 06:59 06:59 06:59 Intake Total 2900 240 Output Total 800 Balance 2100 240 Result Diagrams: 06/25/17 04:45 06/25/17 04:45 Additional Labs: Accuchecks 06/25/17 06/25/17 06/25/17 11:32 07:45 05:03 POC Glucose 123 H 135 H 133 H 06/25/17 06/24/17 06/24/17 00:11 19:57 16:27 POC Glucose 140 H 115 H 112 H Phys Exam - Physical Examination Constitutional: NAD HEENT: PERRLA, oral pharynx no lesions Neck: no JVD, supple Respiratory: no wheezing, clear to auscultation bilateral Cardiovascular: RRR Gastrointestinal: soft, non-tender, no distention, positive bowel sounds Musculoskeletal: no edema, pulses present Neurological: normal sensation, moves all 4 limbs Psychiatric: A&O x 3 Skin: normal turgor, cap refill <2 seconds Dx/Plan (1) Diabetic gastroparesis Code(s): E11.43 - TYPE 2 DIABETES W DIABETIC AUTONOMIC (POLY)NEUROPATHY; K31.84 - GASTROPARESIS Status: Acute Comment: Acute/subacute with mild improvement , trial Erythromycin 250mg QID, continue Domperidone, Phenergan, IVF's, clear liquids (2) Intractable nausea and vomiting Code(s): R11.2 - NAUSEA WITH VOMITING, UNSPECIFIED Status: Acute Comment: See #1 above, mild improvement (3) Diabetes mellitus, type II, insulin dependent Code(s): E11.9 - TYPE 2 DIABETES MELLITUS WITHOUT COMPLICATIONS; 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
[2017-06-25] MEDS: Erythromycin Base 250 MG TAB PO SCH ×2 (15:43→20:52)
[2017-06-26] MEDS: Sodium Chloride 0.9% 1,000 ML IV SCH ×4 (00:25→22:29)
[2017-06-26] MEDS: Erythromycin Base 250 MG TAB PO SCH ×4 (03:05→22:27)
[2017-06-26] MEDS: Lubiprostone 24 MCG CAP PO SCH ×2 (08:31→20:16)
[2017-06-26] MEDS: Pantoprazole 40 MG VIAL IVP SCH ×2 (08:32→22:24)
[2017-06-26] MEDS: NPH, Human Insulin Isophane 300 UNIT/3 ML VIAL SC SCH ×2 (08:33→22:33)
[2017-06-26] MEDS: Promethazine HCl 25 MG in Sodium Chloride 0.9% 100 ML IVPB PRN ×2 (10:31→18:15)
--- NOTE | 2017-06-26 11:10 | PRG ---
DATE OF SERVICE: 06/26/2017 SUBJECTIVE: The patient was doing well. She had not had nausea all day until a few minutes ago afte r eating some breakfast that consisted of Ensure and some broth. She has had no vomiting. She is shirley ving multiple loose stools which she attributes to the Amitiza. OBJECTIVE: VITAL SIGNS: Temperature 98.7, pulse 93, respiratory rate 18, blood pressure 143/86. CHEST: Clear. CARDIOVASCULAR: Regular rate and rhythm. ABDOMEN: Benign. LABORATORY DATA: Shows hemoglobin 10.4, glucose 130. ASSESSMENT: 1. Diabetic gastroparesis - on oral erythromycin, IV Protonix, IV Phenergan and oral domperidone. 2. Nausea. RECOMMENDATIONS: 1. Continue present medical regimen. 2. MRI of the brain.
[2017-06-26] MEDS: Lorazepam 1 MG TAB PO PRN (13:01)
--- NOTE | 2017-06-26 15:15 | PDOC.PN ---
- Subjective Encounter Start Date: 06/26/17 Encounter Start Time: 15:00 Subjective: f/u for gastroparesis and slow clinical improvement. Tx with Erythromycin, -: IVF's, Phenergan and Amitiza. Some overall improvment but not taking -: regular diet. - Objective Resuscitation Status: Resuscitation Status FULL:Full Resuscitation MAR Reviewed: Yes Vital Signs & Weight: Vital Signs (12 hours) Temp Pulse Resp Pulse Ox 06/26/17 07:49 98.7 F 93 18 97 Weight Admit Weight 103 lb Weight 103 lb I&O: 06/25/17 06/26/17 06/27/17 06:59 06:59 06:59 Intake Total 240 1650 Balance 240 1650 Result Diagrams: 06/25/17 04:45 06/25/17 04:45 Additional Labs: Accuchecks 06/26/17 06/26/17 06/26/17 11:22 07:32 06:04 POC Glucose 165 H 130 H 127 H 06/25/17 16:25 POC Glucose 72 Laboratory Tests 06/23/17 07:49 B-Hydroxybutyrate 4.79 H Microbiology 06/25/17 12:15 Stool C. difficile GDH Antigen & Toxins - Final Phys Exam - Physical Examination Constitutional: NAD HEENT: PERRLA, oral pharynx no lesions Neck: no JVD, supple Respiratory: no wheezing, clear to auscultation bilateral Cardiovascular: RRR Gastrointestinal: soft, non-tender, no distention, positive bowel sounds Musculoskeletal: no edema, pulses present Neurological: normal sensation, moves all 4 limbs Psychiatric: A&O x 3 Skin: normal turgor, cap refill <2 seconds Dx/Plan (1) Diabetic gastroparesis Code(s): E11.43 - TYPE 2 DIABETES W DIABETIC AUTONOMIC (POLY)NEUROPATHY; K31.84 - GASTROPARESIS Status: Acute Comment: Acute/subacute with mild improvement , trial Erythromycin 250mg QID, continue Domperidone, Phenergan, Amitiza, IVF's , clear liquids (2) Intractable nausea and vomiting Code(s): R11.2 - NAUSEA WITH VOMITING, UNSPECIFIED Status: Acute Comment: See #1 above, mild improvement (3) Diabetes mellitus, type II, insulin dependent Code(s): E11.9 - TYPE 2 DIABETES MELLITUS WITHOUT COMPLICATIONS; 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
[2017-06-26] MEDS: Dronabinol 2.5 MG CAP PO SCH (20:15)
[2017-06-27] MEDS: Sodium Chloride 0.9% 1,000 ML IV SCH ×2 (01:25→16:28)
[2017-06-27] MEDS: Erythromycin Base 250 MG TAB PO SCH ×4 (02:35→20:28)
[2017-06-27 04:46] LABS: ALT (SGPT) 7 U/L (8-55); AST (SGOT) 8 U/L (5-34); Albumin 3.4 g/dL (3.5-5.0); Alkaline Phosphatase 55 U/L (40-150); Anion Gap 8 mmol/L (10-20); BUN (Urea Nitrogen) 4 mg/dL (7.0-18.7); Bilirubin, Total 0.4 mg/dL (0.2-1.2); Calc. Creatinine Clearance 88 mL/min (70-130); Calcium 8.4 mg/dL (7.8-10.44); Carbon Dioxide 29 mmol/L (22-29); Chloride 105 mmol/L (98-107); Estimated GFR-MDRD Greater than 90; Globulin 1.9 g/dL (2.4-3.5); Glucose 214 mg/dL (70-105); Protein, Total 5.3 g/dL (6.0-8.3); Sodium 139 mmol/L (136-145)
[2017-06-27 04:52] LABS: Potassium 2.8 mmol/L (3.5-5.1)
[2017-06-27] MEDS: Potassium Chloride 20 MEQ TAB PO SCH ×3 (05:33→13:46)
[2017-06-27] MEDS: INSULIN ASPART SC PRN ×2 (05:43→18:04)
[2017-06-27] MEDS: Pantoprazole 40 MG VIAL IVP SCH ×2 (08:57→20:29)
[2017-06-27] MEDS: Lubiprostone 24 MCG CAP PO SCH (08:58)
[2017-06-27] MEDS: NPH, Human Insulin Isophane 300 UNIT/3 ML VIAL SC SCH ×2 (08:59→20:35)
--- NOTE | 2017-06-27 10:35 | MRI ---
MRI BRAIN: Date: 06/27/17 HISTORY: Intractable nausea and vomiting. TECHNIQUE: Multiplanar, multisequence noncontrast enhanced MRI images of brain obtained. The patient refused Kulwant olinium. FINDINGS: MRI images of the brain demonstrate the brain to be unremarkable. No evidence of intracranial masses, hemorrhages, strokes, or contusions seen. Ventricles are of normal size. No evidence of diffusion re stricted seen to suggest acute strokes. No significant evidence of intracranial pathology seen. The s inuses are well aerated. IMPRESSION: Unremarkable noncontrast enhanced MRI of the brain. POS: [facility]
--- NOTE | 2017-06-27 12:48 | PRG ---
DATE OF SERVICE: 06/27/2017 SUBJECTIVE: The patient is still having nausea. She is tolerating some liquids. She reports she is able to drink Ensure fairly well without too much nausea. She is not able to eat much food. She is having 6-7 bowel movements per day. PHYSICAL EXAMINATION: VITAL SIGNS: Temperature 97.0, pulse 98, respiratory rate 16, blood pressure 123/79. CHEST: Clear. CARDIOVASCULAR: Regular rate and rhythm. ABDOMEN: Soft, nontender, without organomegaly or masses. LABORATORY DATA: Significant for potassium 2.8, glucose 214, albumin 3.4. MRI of the brain was normal. ASSESSMENT: 1. Diabetic gastroparesis - difficult situation. The main components of her symptomatology includin g nausea, malnutrition and vomiting. She has really not had much vomiting since she has been in the hospital, but she is not having a lot of p.o. intake. Hopefully, we could send her home soon if she is able to drink enough liquids to prevent dehydration. Nutritional status, I discussed may be a jej unostomy and she reports she is not quite there yet. 2. Hypokalemia. RECOMMENDATIONS: 1. Potassium replacement. 2. Decrease his Amitiza from 24 mcg twice a day to 8 mcg per day, switched to suppositories. 3. Phenergan. 4. Continue erythromycin. 5. Multiple Ensure supplements to see if she can tolerate going home.
[2017-06-27] MEDS: Promethazine HCl 25 MG SUPP PR SCH ×2 (13:45→20:38)
[2017-06-27] MEDS: Lubiprostone 8 MCG CAP PO SCH (16:27)
--- NOTE | 2017-06-27 17:17 | PDOC.PN ---
- Subjective Encounter Start Date: 06/27/17 Encounter Start Time: 17:10 Subjective: f/u DM gastroparesis with slow improvement on Erythromycin, Phenergan -: and modified diet intake. Mainly nauseated with minimal emesis. - Objective Resuscitation Status: Resuscitation Status FULL:Full Resuscitation Vital Signs & Weight: Vital Signs (12 hours) Temp Pulse Resp BP BP Pulse Ox 06/27/17 16:25 98.8 F 95 16 148/90 H 99 06/27/17 11:06 97 F L 98 16 123/79 99 06/27/17 07:50 98.3 F 90 16 100 06/27/17 07:33 98.3 F 90 16 124/81 100 Weight Admit Weight 103 lb Weight 103 lb I&O: 06/26/17 06/27/17 06/28/17 06:59 06:59 06:59 Intake Total 1650 1999 2199 Balance 1650 1999 2199 Result Diagrams: 06/25/17 04:45 06/27/17 03:36 Additional Labs: Accuchecks 06/27/17 06/27/17 06/27/17 16:48 11:10 07:38 POC Glucose 209 H 154 H 166 H 06/27/17 06/26/17 06/26/17 04:55 20:10 17:00 POC Glucose 200 H 226 H 222 H Radiology Reviewed by me: Yes (MRI brain - negative) Phys Exam - Physical Examination Constitutional: NAD HEENT: PERRLA, oral pharynx no lesions Neck: no JVD, supple Respiratory: no wheezing, clear to auscultation bilateral Cardiovascular: RRR Gastrointestinal: soft, non-tender, no distention, positive bowel sounds Musculoskeletal: no edema, pulses present Neurological: normal sensation, moves all 4 limbs Psychiatric: A&O x 3 Skin: normal turgor, cap refill <2 seconds Dx/Plan (1) Diabetic gastroparesis Code(s): E11.43 - TYPE 2 DIABETES W DIABETIC AUTONOMIC (POLY)NEUROPATHY; K31.84 - GASTROPARESIS Status: Acute Comment: Acute/subacute with mild improvement , trial Erythromycin 250mg QID, continue Domperidone, Phenergan, Amitiza, IVF's , pureed diet (2) Intractable nausea and vomiting Code(s): R11.2 - NAUSEA WITH VOMITING, UNSPECIFIED Status: Acute Comment: Nausea intermittent, emesis resolved (3) Diabetes mellitus, type II, insulin dependent Code(s): E11.9 - TYPE 2 DIABETES MELLITUS WITHOUT COMPLICATIONS; 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 Status: Chronic Comment: Last A1C 6.9, continue Insulin regimen, ADA, ISS (4) Hematemesis with nausea Code(s): K92.0 - HEMATEMESIS Status: Acute Comment: Likely Eloina-Alvarez tear from emesis, continue Protonix 40mg IV q12h, appreciate GI assistance (5) Hypokalemia Code(s): E87.6 - HYPOKALEMIA Status: Acute Comment: KCL supplementation, repeat K+ level in am (6) Moderate protein-calorie malnutrition Code(s): E44.0 - MODERATE PROTEIN-CALORIE MALNUTRITION Status: Chronic Comment: Ensure supplementation, pureed diet as tolerated - Plan out of bed/ambulate Stable overall -: Continue supportive mgmt -: Advance to pureed diet -: OOB/ambulate -: KCL supplementation * AM lab: BMP * Likely home in am
[2017-06-28] MEDS: Sodium Chloride 0.9% 1,000 ML IV SCH ×2 (05:30→11:50)
[2017-06-28 05:35] LABS: Anion Gap 9 mmol/L (10-20); BUN (Urea Nitrogen) Less than 4 mg/dL (7.0-18.7); Calc. Creatinine Clearance 88 mL/min (70-130); Calcium 9.1 mg/dL (7.8-10.44); Carbon Dioxide 33 mmol/L (22-29); Chloride 104 mmol/L (98-107); Estimated GFR-MDRD Greater than 90; Glucose 157 mg/dL (70-105); Potassium 3.9 mmol/L (3.5-5.1); Sodium 142 mmol/L (136-145)
[2017-06-28] MEDS: Erythromycin Base 250 MG TAB PO SCH ×2 (06:36→09:03)
[2017-06-28] MEDS: Promethazine HCl 25 MG SUPP PR SCH ×2 (06:37→12:16)
[2017-06-28] MEDS: Lubiprostone 8 MCG CAP PO SCH (09:02)
[2017-06-28] MEDS: Pantoprazole 40 MG VIAL IVP SCH (09:05)
[2017-06-28] MEDS: NPH, Human Insulin Isophane 300 UNIT/3 ML VIAL SC SCH (09:05)
[2017-06-28] MEDS: INSULIN ASPART SC PRN (09:09)
--- NOTE | 2017-06-28 11:40 | DIS ---
DATE OF ADMISSION: 06/23/2017 DATE OF DISCHARGE: 06/28/2017 DISCHARGE DIAGNOSES: 1. Diabetic gastroparesis, improved. 2. Intractable nausea and vomiting, resolved. 3. Diabetes mellitus type 2, insulin-requiring, stable. 4. Hematemesis secondarily to suspected Eloina-Alvarez tear, resolved. 5. Hypokalemia, resolved. 6. Moderate protein calorie malnutrition. CONSULTATIONS: Dr. Ramírez with Gastroenterology Service. PERTINENT LAB AND X-RAY FINDINGS: Potassium ranged between 2.8-4.1. Lactic acid level ranged betwee n 1.6-2.3, lipase 5. Serum beta hCG negative. LFTs within normal limits. CBC showed a white blood cell count ranging between 6.0-13.3, hemoglobin ranged between 10.3-13.4. Beta hydroxybutyrate level 4.79 on 06/23/2017. C. difficile antigen and toxin negative on 06/25/2017. Portable chest x-ray da koko 06/23/2017 showed no acute cardiopulmonary process. Abdominal radiographs dated 06/23/2017 showe d negative study. MRI of the brain dated 06/27/2017 showed no acute intracranial process. HOSPITAL COURSE: The patient was initially admitted after presenting with intractable nausea, vomiti ng, dehydration in the context of known diabetes mellitus type 2, insulin requiring, and diabetic gas troparesis. The patient with recent hospitalizations in 2018 for similar presentation. The patient was placed on IV fluid hydration as well as antiemetics, proton pump inhibitors, and evaluated by the Gastroenterology Service. The patient with protracted course of gastroparesis placed on multiple me dication regimen to include Amitiza and erythromycin orally. The patient also continued on domperido ne with modification to dietary intake. The patient was slow to clinically improve, unable to tolera te clear liquids on multiple antiemetics. The patient was subsequently transitioned to clear liquids , advancing slowly to full liquids and eventual pureed texture diabetic diet. The patient underwent multiple imaging evaluations all negative as stated previously. The patient's vital signs remained s table throughout the hospital course and was given potassium supplementation after mild hypokalemia w as noted. The patient eventually transitioned to pureed texture diet as well as tolerating full liqu ids without return of nausea. The patient overall clinically stabilizing at the time of discharge. On the day of discharge, I have examined the patient with lungs being clear to auscultation bilateral ly and cardiovascular exam showing normal S1 and S2. Abdominal exam is essentially unremarkable. Th e patient overall ready for discharge on 06/28/2017. DISCHARGE MEDICATIONS: 1. Amitiza 8 mcg p.o. b.i.d. 2. Domperidone 10 mg p.o. t.i.d. 3. Marinol 10 mg p.o. b.i.d. 4. Cymbalta 20 mg p.o. b.i.d. 5. Erythromycin 250 mg p.o. q.i.d. x7 days. 6. Aspart insulin sliding scale with meals. 7. Lorazepam 1 mg p.o. t.i.d. p.r.n. 8. Metoprolol succinate 12.5 mg p.o. b.i.d. 9. Humulin N 12 units subcutaneously b.i.d. 10. Zofran 4 mg p.o. q.8 hours p.r.n. 11. MiraLax 17 grams p.o. daily. 12. Senna 8.6 mg p.o. b.i.d. p.r.n. 13. Tramadol 50 mg p.o. q.4-6 hours p.r.n. pain. FOLLOWUP: The patient may follow up with her primary care provider, Dr. Jeremy Ramon within 7 days of discharge. CONDITION ON DISCHARGE: Stable. ACTIVITY: Ad mitchell. DIET: ADA. CODE STATUS: FULL. DISPOSITION: Home 06/28/2017. Total time preparing and coordinating discharge 33 minutes.
[2017-06-28 12:22] VITALS: BP 110/76; TEMP 98
== END 2017-06-28 12:27 | disposition home or self-care (01) | DRG 73 ==
LOC: ERS 07:32 → T4-A 12:02
PROVIDERS: ADMIT Internal Medicine Addiction Medicine; ATTEND Internal Medicine Addiction Medicine
DX: E11.43 Type 2 diabetes mellitus with diabetic autonomic (poly)neuropathy (principal); K22.6 Gastro-esophageal laceration-hemorrhage syndrome; E44.0 Moderate protein-calorie malnutrition; Z68.1 Body mass index [BMI] 19.9 or less, adult; K31.84 Gastroparesis; E11.65 Type 2 diabetes mellitus with hyperglycemia; I10 Essential (primary) hypertension; K21.9 Gastro-esophageal reflux disease without esophagitis; F32.9 Major depressive disorder, single episode, unspecified; E87.6 Hypokalemia; E86.0 Dehydration; K59.09 Other constipation; Z88.5 Allergy status to narcotic agent; Z91.040 Latex allergy status; Z91.011 Allergy to milk products; Z88.8 Allergy status to other drugs, medicaments and biological substances; Z79.4 Long term (current) use of insulin; Z79.899 Other long term (current) drug therapy
CPT/HCPCS: 36415; 36416; 70551; 71045; 74019; 80048; 80053; 81003; 81025; 82010; 82330; 82803; 83605; 83690; 84703; 85025; 87324; 87449; 96361; 96374; 96375; A4216; C9113; J1364; J1815; J2060; J2405; J2550; J7050; Q0162; Q0167

== ENCOUNTER 2017-07-13 15:24 | Emergency (ER) | payer OTHER ==
[2017-07-13 16:29] LABS: #Eosinphils 0.1 thou/uL (0.0-0.7); #Lymphocytes 1.5 thou/uL (1.20-3.40); #Monocytes 0.3 thou/uL (0.11-0.59); #Neutrophils 2.2 thou/uL (1.40-6.50); %Basophils 0.6 % (0.0-1.0); %Eosinophils 2.2 % (0.0-10.0); %Lymphocytes 36.7 % (21.0-51.0); %Monocytes 7.5 % (0.0-10.0); Hemoglobin 14.2 g/dL (12.0-16.0); Mean Corpuscular HGB CONC 34.8 g/dL (32.0-36.0); Mean Corpuscular Volume 88.9 fl (81.0-99.0); Mean Platelet Volume 6.4 fL (7.4-10.4); Platelet Count 220 thou/uL (130-400); RBC Distribution Width 11.3 % (11.5-14.5); White Blood Cell (WBC) Count 4.2 thou/uL (4.8-10.8)
[2017-07-13 17:00] LABS: ALT (SGPT) 13 U/L (8-55); AST (SGOT) 14 U/L (5-34); Alkaline Phosphatase 92 U/L (40-150); Anion Gap 15 mmol/L (10-20); BUN (Urea Nitrogen) 9 mg/dL (7.0-18.7); Bilirubin, Total 0.9 mg/dL (0.2-1.2); Calc. Creatinine Clearance 0 mL/min (70-130); Calcium 10.4 mg/dL (7.8-10.44); Carbon Dioxide 29 mmol/L (22-29); Chloride 96 mmol/L (98-107); Estimated GFR-MDRD 74; Globulin 3.2 g/dL (2.4-3.5); Glucose 304 mg/dL (70-105); Lipase 24 U/L (8-78); Potassium 4.1 mmol/L (3.5-5.1); Protein, Total 8.2 g/dL (6.0-8.3); Sodium 136 mmol/L (136-145)
== END 2017-07-13 17:59 | disposition home or self-care (01) ==
LOC: ERS 15:24
DX: F32.9 Major depressive disorder, single episode, unspecified; E10.43 Type 1 diabetes mellitus with diabetic autonomic (poly)neuropathy; F41.9 Anxiety disorder, unspecified; K31.84 Gastroparesis; Z79.899 Other long term (current) drug therapy
CPT/HCPCS: 80053; 82010; 83690; 85025; 96360; 96361

== ENCOUNTER 2017-09-17 02:41 | Inpatient (IN) | payer OTHER ==
[2017-09-17] MEDS ORDERED: Ondansetron ODT 4 MG TAB ONE ×2 (03:03→04:25)
[2017-09-17 03:22] LABS: #Lymphocytes 0.6 thou/uL (1.20-3.40); #Monocytes 0.3 thou/uL (0.11-0.59); #Neutrophils 6.1 thou/uL (1.40-6.50); %Basophils 0.1 % (0.0-1.0); %Eosinophils 0.1 % (0.0-10.0); %Monocytes 4.7 % (0.0-10.0); Hemoglobin 15.2 g/dL (12.0-16.0); Mean Corpuscular HGB CONC 34.9 g/dL (32.0-36.0); Mean Corpuscular Hemoglobin 31.9 pg (27.0-31.0); Mean Corpuscular Volume 91.5 fl (81.0-99.0); Mean Platelet Volume 7.4 fL (7.4-10.4); Platelet Count 199 thou/uL (130-400); RBC Distribution Width 11.9 % (11.5-14.5); Red Blood Cell (RBC) Count 4.77 mill/uL (4.20-5.40)
[2017-09-17 03:31] LABS: BHCG - Serum Negative (NEGATIVE); Pregs Control Background? CLEAR/WHITE (CLR/WHITE); Pregs Control Bar Appear? YES (CONTROL BAR)
[2017-09-17] MEDS ORDERED: Promethazine HCl 25 MG/ML VIAL ONE ×2 (03:41→06:12)
[2017-09-17 04:04] LABS: ALT (SGPT) 14 U/L (8-55); AST (SGOT) 16 U/L (5-34); Albumin 4.7 g/dL (3.5-5.0); Alkaline Phosphatase 96 U/L (40-150); Anion Gap 26 mmol/L (10-20); BUN (Urea Nitrogen) 17 mg/dL (7.0-18.7); Bilirubin, Total 1.3 mg/dL (0.2-1.2); Calc. Creatinine Clearance 0 mL/min (70-130); Calcium 9.9 mg/dL (7.8-10.44); Carbon Dioxide 15 mmol/L (22-29); Chloride 97 mmol/L (98-107); Estimated GFR-MDRD 54; Globulin 3.1 g/dL (2.4-3.5); Lipase 9 U/L (8-78); Potassium 3.9 mmol/L (3.5-5.1); Protein, Total 7.8 g/dL (6.0-8.3); Sodium 134 mmol/L (136-145)
[2017-09-17 04:10] LABS: Glucose 664 mg/dL (70-105)
[2017-09-17 04:11] LABS: Base Excess-Venous -7.8 mmol/L (0 (+/- 2.5)); Bicarbonate (HCO3v) 15.7 mmol/L (1.0-85.0); Calcium, Ionized 0.91 mmol/L (1.12-1.32); Hemoglobin - Calc 15.7 g/dL (12.0-18.0); Potassium 4.2 mmol/L (3.4-4.7); T. Carbon Dioxide 16.5 mmol/L (1.0-85.0); pH (Venous) 7.372 (7.35-7.45); vO2 Saturation-calc 86.9 % (94-98)
[2017-09-17] MEDS ORDERED: Insulin Regular 300 UNITS/3 ML VIAL ONE (04:20)
[2017-09-17] MEDS ORDERED: Insulin Regular 100 units/100 ml in NS IVPB SCH (05:30)
[2017-09-17 06:19] LABS: Acetaminophen Less than 6.0 mcg/mL (10.0-30.0); Alcohol Less than 10 mg/dL (Less than 10); Anion Gap 20 mmol/L (10-20); BUN (Urea Nitrogen) 15 mg/dL (7.0-18.7); Calc. Creatinine Clearance 0 mL/min (70-130); Calcium 8.7 mg/dL (7.8-10.44); Carbon Dioxide 16 mmol/L (22-29); Chloride 108 mmol/L (98-107); Estimated GFR-MDRD 72; Glucose 410 mg/dL (70-105); Potassium 3.4 mmol/L (3.5-5.1); Salicylate Less than 8.0 mg/dL (15.0-30.0); Sodium 141 mmol/L (136-145)
[2017-09-17 07:08] LABS: Bilirubin Negative (Negative); Blood, Urine Negative (Negative); Clarity CLEAR (Clear); Glucose, Urine (Dipstick) >=1000 mg/dL (Negative); Leukocyte Negative (Negative); Nitrite Negative (Negative); Protein, Urine (Dipstick) Negative (Neg-Trace); Specific Gravity, Urine 1.037 (1.002-1.036); Urobilinogen 0.2 mg/dL (0.2-1.0)
[2017-09-17] MEDS ORDERED: Ondansetron HCl/PF 4 MG/2 ML Vial IVP PRN (08:11)
[2017-09-17] MEDS ORDERED: Ondansetron ODT 4 MG TAB PO PRN (08:11)
[2017-09-17] MEDS ORDERED: Dextrose 5% in Water 1,000 ML IV PRN (08:13)
[2017-09-17] MEDS ORDERED: D5 1/2 NS w/20 mEq KCL 1,000 ML IV PRN (08:13)
[2017-09-17] MEDS ORDERED: Dextrose 5 %-0.45 % NaCl 1,000 ML IV PRN ×2 (08:13→10:59)
[2017-09-17] MEDS ORDERED: Sodium Chloride 0.9% 1,000 ML IV PRN ×8 (08:13→10:59)
[2017-09-17] MEDS ORDERED: NS 0.9% w/ 20 MEQ KCL 1,000 ML/1,000 ML BAG IV PRN ×2 (08:13)
[2017-09-17] MEDS ORDERED: Dextrose 50% Abboject 50 ML SYRINGE SLOW IVP PRN (08:14)
[2017-09-17] MEDS ORDERED: Sodium Chloride 0.9% 1,000 ML IV SCH (08:15)
[2017-09-17] MEDS ORDERED: Insulin Regular 300 UNITS/3 ML VIAL IVP SCH (08:15)
[2017-09-17] MEDS ORDERED: ADD ELECTROLYTE REPLACEMENT SET TO PROFILE FS SCH (08:15)
[2017-09-17 09:36] VITALS: BMI 18.8
--- NOTE | 2017-09-17 10:07 | PDOC.EVN ---
Event Note - Event Note Event Note: pt seen and examined, H & P will be dictated later, pt is being admitted for dehydraion, gastroperesis, and dka
[2017-09-17 10:11] LABS: Lactic Acid 3.6 mmol/L (0.5-2.2)
[2017-09-17] MEDS ORDERED: Labetalol HCl 100 MG/20 ML VIAL SLOW IVP PRN (10:59)
[2017-09-17] MEDS ORDERED: Diphenoxylate HCl/Atropine Tablet PO PRN (10:59)
[2017-09-17] MEDS ORDERED: CCU Electrolyte Replacement 1 EACH IVPB ONE (10:59)
[2017-09-17] MEDS ORDERED: Zolpidem Tartrate 5 MG TAB PO PRN (10:59)
[2017-09-17] MEDS ORDERED: Acetaminophen 325 MG TAB PO PRN (10:59)
[2017-09-17] MEDS ORDERED: Promethazine HCl 25 MG/ML VIAL IM/IV PRN (10:59)
[2017-09-17] MEDS ORDERED: Sodium Chloride 0.65% Nasal 44 ML BOT EA NARE PRN (10:59)
[2017-09-17] MEDS ORDERED: Loperamide HCl 2 MG CAP PO PRN (10:59)
[2017-09-17] MEDS ORDERED: Loratadine 10 MG TAB PO PRN (10:59)
[2017-09-17] MEDS ORDERED: Chloraseptic Spray 180 ml Bottle PO PRN (10:59)
[2017-09-17] MEDS ORDERED: Milk Of Magnesia 30 ML UDCUP PO PRN (10:59)
[2017-09-17] MEDS ORDERED: NS 0.9% w/ 20 MEQ KCL 1,000 ML IV PRN ×2 (10:59)
[2017-09-17] MEDS ORDERED: Ondansetron ODT 4 MG TAB SL PRN (10:59)
[2017-09-17] MEDS ORDERED: hydrALAZINE 20 MG/ML VIAL SLOW IVP PRN (10:59)
[2017-09-17] MEDS ORDERED: Diabetic Tussin 200 MG/10 ML UDCUP PO PRN (10:59)
[2017-09-17] MEDS ORDERED: Eucerin (Mineral Oil/Petrolatum,White) 30 gm Jar TOP PRN (10:59)
[2017-09-17] MEDS ORDERED: Artificial Tears 18 DROP/0.9 ML EA EYE PRN (10:59)
[2017-09-17] MEDS ORDERED: Potassium Chloride 20 MEQ TAB PO PRN (11:08)
[2017-09-17] MEDS ORDERED: Potassium Chloride 40 MEQ in Premix Bag 1 BAG IVPB PRN (11:08)
[2017-09-17] MEDS ORDERED: CCU ELECTROLYTE REPLACEMENT PROTOCOL FS PRN (11:08)
[2017-09-17] MEDS ORDERED: Potassium Phosphate 15 MMOL in Sodium Chloride 0.9% 250 ML 250 ML IV PRN (11:08)
[2017-09-17] MEDS ORDERED: Magnesium 2 GM/NS 0.9% 100 ML 2 GM in Premix Bag 1 BAG IVPB PRN (11:08)
[2017-09-17] MEDS ORDERED: Potassium Phosphate 12 MMOL in Sodium Chloride 0.9% 250 ML 250 ML IV PRN (11:08)
[2017-09-17] MEDS ORDERED: Potassium Phosphate 9 MMOL in Sodium Chloride 0.9% 100 ML IVPB PRN (11:08)
[2017-09-17] MEDS ORDERED: Potassium Chloride 40 MEQ in Sodium Chloride 0.9% 250 ML 250 ML IVPB PRN (11:08)
[2017-09-17] MEDS ORDERED: Magnesium Oxide 400 MG TAB PO PRN ×2 (11:08)
[2017-09-17] MEDS ORDERED: Enoxaparin Sodium 40 MG/0.4 ML SYRINGE SC SCH (11:15)
[2017-09-17 11:56] LABS: Anion Gap 14 mmol/L (10-20); BUN (Urea Nitrogen) 12 mg/dL (7.0-18.7); Calc. Creatinine Clearance 79 mL/min (70-130); Calcium 8.8 mg/dL (7.8-10.44); Carbon Dioxide 19 mmol/L (22-29); Chloride 111 mmol/L (98-107); Estimated GFR-MDRD 86; Glucose 224 mg/dL (70-105); Potassium 3.3 mmol/L (3.5-5.1); Sodium 141 mmol/L (136-145)
[2017-09-17] MEDS ORDERED: Lidocaine 2% Viscous Solution 20 ML, Aluminum & Magnesium Hydroxide 30 ML, Donnatal Eli... SSW SCH (12:15)
[2017-09-17] MEDS ORDERED: Potassium Chloride 40 MEQ in Premix Bag 1 BAG IVPB SCH (12:15)
--- NOTE | 2017-09-17 12:22 | CON ---
DATE OF CONSULTATION: 09/17/2017 SERVICE: Pulmonary Medicine. REASON FOR CONSULTATION: IMCU patient. HISTORY OF PRESENT ILLNESS: The patient is a 42-year-old white female with past medical history significant for type 1 diabetes mellitus. It was diagnosed roughly 10 years ago. She uses NPH 12 units twice daily. She also uses sliding scale insulin based on what she eats and what her sugars are. She presented to the hospital with 3-day history of increasing nausea and vomiting with intractable vomiting. She has gastroparesis, which is well diagnosed. She takes domperidone because of bad reaction to Reglan. She did not have any infectious symptoms that precipitated this presentation. She is running low on her NPH for the past week and has been stretching out her doses. Additionally, she manages her gastroparesis with acupuncture twice a week. She missed her session this week. She actually cites that it is a part of the reason that she had difficulties. She denies any fevers or chills. Otherwise, there has been no interval change to her condition. She has active nausea and is threatening to vomit in the room. PAST MEDICAL HISTORY: 1. Type 1 diabetes mellitus. 2. Gastroparesis secondary to diabetes. 3. Gastroesophageal reflux disease. 4. Constipation, chronic. 5. Protein calorie malnutrition. 6. Major depressive disorder. 7. History of esophageal strictures. FAMILY HISTORY: Noncontributory. SOCIAL HISTORY: Negative for illicit drugs or tobacco. She uses alcohol socially. She has no exposure to chemicals, dust asbestos or tuberculosis. PAST SURGICAL HISTORY: None. ALLERGIES: REGLAN, DAIRY PRODUCTS, CODEINE. MEDICATIONS: List of her inpatient medications were reviewed. No specific updates were made. Of note, she takes domperidone which she gets from [facility] because of her previous reaction to REGLAN. REVIEW OF SYSTEMS: General, head, ears, eyes, nose, throat, cardiovascular, respiratory, GI, , musculoskeletal, neurologic and skin is negative except as mentioned in the HPI. PHYSICAL EXAMINATION: VITAL SIGNS: Afebrile, pulse 119 and down trending, blood pressure 153/93, respirations 17, saturation 100% on room air. GENERAL: Patient is awake, alert, no apparent distress. LUNGS: Decent air entry. I do not appreciate prolonged expiratory phase, wheezing, rhonchi or crackles. HEART: Normal rate and regular. ABDOMEN: Soft, nontender, nondistended. Bowel sounds are positive. MUSCULOSKELETAL: No cyanosis or clubbing. There is no pitting in the bilateral lower extremities. NEUROLOGIC: Grossly nonfocal. LABORATORY DATA: WBC 7.0, hemoglobin 15.2, which is well above baseline, platelets 199,000. A pH 7.37, pCO2 27, and pO2 53. Bicarbonate 19 and improving. Chloride 111, anion gap has significantly improved to 14. Sodium 141 and stable, potassium 3.3. Beta hydroxybutyric acid is now normal. ASSESSMENT: 1. Diabetic ketoacidosis. 2. Type 1 diabetes mellitus. 3. Gastroparesis. 4. Medical noncompliance. PLAN: We talked about the importance of the patient not "stretching" her insulin. I will replace the potassium today. She will need to remain on the IV insulin until her diet picks up a little bit. She can take her domperidone from home. Once again, I probably would not interrupt her insulin drip until she is more fully tolerating p.o. 70 minutes have been devoted to this patient in various activities. I personally reviewed all imaging studies and laboratory data noted within this document. For fifty percent of this time, I was interacting with the patient at the bedside or coordinating care with the care team. For the remainder of the time I was immediately available to the patient in the hospital unit. [place]
--- NOTE | 2017-09-17 12:49 | HP ---
PRIMARY CARE PHYSICIAN: Dr. Jeremy Ramon. REASON FOR ADMISSION: Intractable nausea, vomiting due to gastroparesis flare-up, and diabetic ketoa cidosis. HISTORY OF PRESENT ILLNESS: A 42-year-old female who has underlying history of diabetes type 1, insu bradly requiring, as well as a history of diabetes gastroparesis, who presented to emergency room with a complaint of intractable nausea, vomiting, and diarrhea. The patient was not able to hold anything even liquid. She was feeling nauseated continuously and she had several times of vomiting at home. She denies any hematemesis. She also started having diarrhea since Saturday. She denies any hematoche apoorva or melena. She denies any unusual food ingestion. She denies any abdominal distention, abdomina l pain. She feels that because of nausea, she gets pain but she cannot point out location of pain. She denies any fever or chills. She denies any UTI symptoms. She denies any headache, focal motor o r sensory symptoms. She denies any cough or flu-like illness. She denies any sick exposure or recen t travel. Patient is thinking that she might have eaten something and that might have caused her edd sea and vomiting, but no other family member are sick. The patient reports that because of nausea and vomiting and she was not able to tolerate any food. S he did not take any insulin for the last couple of dose as well. She came to emergency room, at that time, patient was found with hyperglycemia. She was clinically a ppeared dehydrated. The patient also had lactic acidosis. She had elevated ketones. This patient w as started on insulin drip, IV fluid, and subsequently she was admitted to [facility]. REVIEW OF SYSTEMS: The following complete review of systems was negative, unless otherwise mentioned in the HPI or below: Constitutional: Weight loss or gain, ability to conduct usual activities. Skin: Rash, itching. Eyes: Double vision, pain. ENT/Mouth: Nose bleeding, neck stiffness, pain, tenderness. Cardiovascular: Palpitations, dyspnea on exertion, orthopnea. Respiratory: Shortness of breath, wheezing, cough, hemoptysis, fever or night sweats. Gastrointestinal: Poor appetite, abdominal pain, heartburn, nausea, vomiting, constipation, or diarr hea. Genitourinary: Urgency, frequency, dysuria, nocturia. Musculoskeletal: Pain, swelling. Neurologic/Psychiatric: Anxiety, depression. Allergy/Immunologic: Skin rash, bleeding tendency. Please see my HPI for pertinent positive and negative. All other review of system reviewed and negat [place] except as mentioned in the HPI. PAST MEDICAL HISTORY: Diabetes type 1 on insulin, diabetic gastroparesis, diabetic neuropathy. 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 PAST PSYCHIATRIC HISTORY: Anxiety and depression. SOCIAL HISTORY: The patient lives at home with family. No history of tobacco, alcohol, or illicit d rug abuse. FAMILY HISTORY: Diabetes runs among several family members including both parents are diabetic. ALLERGIES: AMITRIPTYLINE, CODEINE, HALDOL, LATEX, NATURAL RUBBER, and REGLAN. CURRENT HOME MEDICATIONS: Amitiza 8 mcg p.o. b.i.d., domperidone 10 mg t.i.d., Marinol 10 mg p.o. b. i.d., Cymbalta 20 mg p.o. b.i.d., erythromycin 250 mg p.o. q.i.d., insulin aspart as per sliding scal e, Ativan 1 mg t.i.d. p.r.n., Toprol-XL 12.5 mg daily, insulin 70/30 at 12 units subcutaneously b.i.d ., Zofran 4 mg q.8 hours p.r.n., MiraLax 17 grams p.o. daily, Senna 8.6 mg p.o. daily p.r.n., and tra madol 50 mg p.o. q.4 hourly p.r.n. EMERGENCY ROOM COURSE: The patient is given IV fluid in her total of 3 liters of fluid was given in the emergency room, Phenergan 25 mg, Novolin R insulin drip was started, Zofran 4 mg, ketamine 20 mg and another dose of Zofran and Phenergan was given in emergency room. PHYSICAL EXAMINATION: VITAL SIGNS: On arrival, blood pressure 126/86, pulse 121, respiratory rate 18, temperature 97.6, sa turation 100% on room air, weight 49.9 kilograms. GENERAL: The patient is currently restless due to nausea and vomiting. Tachycardic. HEENT: Head: Normocephalic, atraumatic. Eyes: Pupils round, reactive to light. Extraocular muscl e intact. ENT: Dry appearing mucous membranes, no oral lesions. No pharyngeal erythema, no exudate. NECK: Supple, no JVD, no thyromegaly, no carotid bruit, no jugular venous distention. LUNGS: Clear to auscultation without any rhonchi or rales. CARDIAC: S1, S2 regular, tachycardia, no murmur, no gallop, no rub. ABDOMEN: Soft, bowel sounds present. No peritoneal sign, no guarding, no rigidity, no rebound. BACK: Unremarkable, no CVA tenderness. EXTREMITIES: Upper extremity passive movement of all joints are normal. Lower extremities: No mitzi a. Good peripheral pulsation, no calf tenderness. SKIN: No skin rash. HEMATOLOGICAL: No lymphadenopathy. PSYCHIATRIC: Anxious affect. NEUROLOGIC: Nonfocal examination. Her speech is normal. She moves all 4 limbs. Plantar bilateral flexor. SIGNIFICANT LABORATORY DATA: EKG showing sinus tachycardia on monitor. CBC: WBC 7.0, hemoglobin 15 .2, platelet of 199. VBG: pH 7.37, bicarbonate 15.7, CO2 of 27.0, O2 is 53.0. BMP: Sodium 134, po tassium 3.9, chloride 97, carbon dioxide 15, anion gap 26, BUN 17, creatinine 1.12, glucose 664, and calcium 9.9. LFT: AST 16, ALT 14, alkaline phosphatase 96, albumin 4.7. test negative. Lipase 9, lact ic acid of 5.6. Urinalysis: Glucosuria, ketonuria, high specific gravity. Serum ketones 4.90. Ser um drug screen negative. ASSESSMENT AND PLAN: 1. Intractable nausea and vomiting. This patient has persistent nausea and vomiting and she is not able to tolerate p.o., this problem is related with flare up of her underlying diabetes gastroparesis , other etiology have taken consideration and ruled out clinically as well as laboratory onofre. At th is point, patient will need symptomatic treatment with IV fluid, Zofran, and Phenergan for nausea and vomiting control. If patient's nausea and vomiting does not get controlled, then we will consider e rythromycin therapy. 2. Dehydration due to problem #1. The patient is given IV fluid in the emergency room and she will continue to get IV fluid as per protocol treatment. 3. Exacerbation of diabetes, gastroparesis as mentioned in problem #1. We will treat symptomaticall y with Zofran, Phenergan. The patient is allergic to REGLAN and if the patient's symptoms does not g et controlled, then we will try to use erythromycin therapy. 4. Diabetes ketoacidosis, likely due to patient is not able to take insulin and she is not toleratin g p.o., so combined starvation ketosis as well as diabetic ketoacidosis contributing to her current p resentation. Currently, anion gap is closed, but we will continue insulin drip. We will closely for her hyperglycemia and titrate insulin drip as per protocol treatment. 5. Diabetes type 1 on insulin. Once patient starts taking p.o. and then we will resume in her home dose of insulin therapy. 6. Lactic acidosis, likely due to dehydration. The patient does not have any clinically any source of infection, but we will repeat lactic acid tomorrow and hydrated with IV fluid. 7. Anxiety and depression. Once patient able to take p.o., at that point, we will continue her home medications Cymbalta and lorazepam p.r.n. basis. 8. Sinus tachycardia likely due to underlying dehydration. The patient will be given IV fluid and w e will monitor on telemetry floor. 9. Hypertension. Once patient able to take p.o., at that point, we will cover resume metoprolol 12. 5 mg p.o. twice daily. 10. Deep venous thrombosis prophylaxis. Lovenox 40 mg subcu daily. 11. Gastrointestinal prophylaxis, Pepcid 20 mg IV b.i.d. 12. Code status: The patient is a FULL CODE and the patient does not have any surrogate decision ma braydon. Disposition plan based on clinical course. We are expecting patient's stay in hospital more than 2 m idnights. Plan of care discussed with the patient in detail.
[2017-09-17] MEDS: Potassium Chloride 20 MEQ in Premix Bag 1 BAG IVPB SCH ×2 (13:07→15:25)
[2017-09-17 14:40] LABS: Anion Gap 14 mmol/L (10-20); BUN (Urea Nitrogen) 11 mg/dL (7.0-18.7); Calc. Creatinine Clearance 89 mL/min (70-130); Calcium 8.3 mg/dL (7.8-10.44); Carbon Dioxide 21 mmol/L (22-29); Chloride 111 mmol/L (98-107); Estimated GFR-MDRD Greater than 90; Glucose 174 mg/dL (70-105); Potassium 3.5 mmol/L (3.5-5.1); Sodium 142 mmol/L (136-145)
[2017-09-17] MEDS ORDERED: DOMPERIDONE 10 MG PO SCH (15:00)
[2017-09-17] MEDS: Famotidine/PF 20 mg/2ml Vial SLOW IVP SCH ×2 (18:31→20:38)
[2017-09-17 20:13] LABS: Anion Gap 14 mmol/L (10-20); BUN (Urea Nitrogen) 9 mg/dL (7.0-18.7); Calc. Creatinine Clearance 92 mL/min (70-130); Calcium 8.6 mg/dL (7.8-10.44); Carbon Dioxide 21 mmol/L (22-29); Chloride 106 mmol/L (98-107); Estimated GFR-MDRD Greater than 90; Glucose 175 mg/dL (70-105); Potassium 3.5 mmol/L (3.5-5.1); Sodium 137 mmol/L (136-145)
[2017-09-17] MEDS: Promethazine HCl 25 MG in Sodium Chloride 0.9% 50 ML IVPB PRN (20:24)
[2017-09-17] MEDS ORDERED: Metoprolol Tartrate 25 MG TAB PO SCH (21:00)
[2017-09-17] MEDS: D5 1/2 NS w/20 mEq KCL 1,000 ML IV PRN (22:15)
[2017-09-18] MEDS: D5 1/2 NS w/20 mEq KCL 1,000 ML IV PRN ×2 (02:30→06:25)
[2017-09-18 03:53] LABS: Hemoglobin 12.2 g/dL (12.0-16.0); Mean Corpuscular HGB CONC 35.2 g/dL (32.0-36.0); Mean Corpuscular Hemoglobin 31.7 pg (27.0-31.0); Mean Corpuscular Volume 89.9 fl (81.0-99.0); Mean Platelet Volume 7.2 fL (7.4-10.4); Platelet Count 182 thou/uL (130-400); RBC Distribution Width 11.9 % (11.5-14.5); Red Blood Cell (RBC) Count 3.85 mill/uL (4.20-5.40); White Blood Cell (WBC) Count 10.3 thou/uL (4.8-10.8)
[2017-09-18 04:05] LABS: Lactic Acid 2.7 mmol/L (0.5-2.2)
[2017-09-18 04:08] LABS: Anion Gap 12 mmol/L (10-20); BUN (Urea Nitrogen) 5 mg/dL (7.0-18.7); Calc. Creatinine Clearance 93 mL/min (70-130); Calcium 8.5 mg/dL (7.8-10.44); Carbon Dioxide 23 mmol/L (22-29); Chloride 107 mmol/L (98-107); Estimated GFR-MDRD Greater than 90; Glucose 173 mg/dL (70-105); Magnesium 1.6 mg/dL (1.6-2.6); Potassium 3.6 mmol/L (3.5-5.1); Sodium 138 mmol/L (136-145)
[2017-09-18 04:11] LABS: Phosphorus 1.6 mg/dL (2.3-4.7)
[2017-09-18] MEDS ORDERED: Dextrose 50% Abboject 50 ML SYRINGE SLOW IVP PRN (07:45)
[2017-09-18] MEDS ORDERED: D5 0.9% NS w/ 20 mEq KCl 1,000 ML IV SCH (07:45)
[2017-09-18] MEDS ORDERED: Dextrose 5% in Water 1,000 ML IV PRN (07:45)
[2017-09-18] MEDS ORDERED: Potassium Phosphate 12 MMOL in Sodium Chloride 0.9% 100 ML IVPB SCH (07:45)
[2017-09-18] MEDS ORDERED: Insulin Regular 300 UNITS/3 ML VIAL SC PRN (07:45)
[2017-09-18] MEDS: Insulin NPH/Reg Insulin Hm 300 UNITS/3 ML VIAL SC SCH ×2 (09:06→22:22)
[2017-09-18] MEDS: Famotidine/PF 20 mg/2ml Vial SLOW IVP SCH (09:08)
[2017-09-18] MEDS: Mag-Al 1200 mg/1200 mg/30 ML UDCUP PO PRN (09:08)
[2017-09-18] MEDS: Enoxaparin Sodium 40 MG/0.4 ML SYRINGE SC SCH (09:13)
[2017-09-18] MEDS ORDERED: Potassium Phosphate 15 MMOL in Sodium Chloride 0.9% 250 ML 250 ML IVPB SCH (09:45)
[2017-09-18] MEDS ORDERED: NPH, Human Insulin Isophane 300 UNIT/3 ML VIAL SC SCH (09:45)
[2017-09-18] MEDS ORDERED: Magnesium Sulfate 4 GM in Sodium Chloride 0.9% 250 ML 250 ML IVPB SCH (09:45)
--- NOTE | 2017-09-18 09:46 | PRG ---
DATE OF SERVICE: 09/18/2017 SERVICE: Pulmonary Medicine. INTERVAL HISTORY: The patient is doing fantastic from a respiratory standpoint. She denies any curr ent chest pain, nausea, vomiting, fevers or chills. She had an episode of hiccups last night, lasted for about 20 minutes. Outside of that, there has been no interval change to her condition. PHYSICAL EXAMINATION: VITAL SIGNS: Afebrile currently with a T-max of 99.8. Pulse 106, blood pressure 142/94, respiration s 15, and saturation 100% on room air. GENERAL: The patient is awake and alert, in no apparent distress. LUNGS: Excellent air entry. There is no prolonged expiratory phase or wheezing present. HEART: Normal rate and regular. ABDOMEN: Soft, nontender, and nondistended. Bowel sounds are positive. MUSCULOSKELETAL: No cyanosis or clubbing. No pitting in the bilateral lower extremities. NEUROLOGIC: Grossly nonfocal. LABORATORY DATA: WBC 10.3, hemoglobin 12.2, platelets 182,000. Lactate 2.7. Blood sugars ranged fr om 133-255. Potassium 3.6. Basic metabolic profile is essentially otherwise unremarkable. Anion ga p is now 12 and completely closed. Bicarbonate 23. Phosphorus 1.6, magnesium 1.6. Beta hydroxybuty rate has completely resolved. ASSESSMENT: 1. Diabetic ketoacidosis. 2. Type 1 diabetes mellitus. 3. Gastroparesis. 4. Medical noncompliance. DISCUSSION AND PLAN: The patient's anion gap is closed. As such, we will give her 12 units of NPH, which is her home dose prior to morning meal. This will be scheduled twice daily. We will replace p otassium, phosphorus and magnesium today. She is ready for transition to the medical unit. When she arrives on the floor, she will have no further requirements for inpatient Pulmonary or Critical Care opinion and I will sign off.
--- NOTE | 2017-09-18 11:04 | PDOC.PN ---
- Subjective Encounter Start Date: 09/18/17 Encounter Start Time: 08:30 -: old records requested/rev today pt's DKA resolved, she still has nausea and vomiting she reported me that she had minor blood one time with vomiting, she feels acid in stomach, no fever - Objective Resuscitation Status: Resuscitation Status FULL:Full Resuscitation MAR Reviewed: Yes Vital Signs & Weight: Vital Signs (12 hours) Temp Pulse Resp BP Pulse Ox 09/18/17 11:00 98.7 F 101 H 18 114/80 100 09/18/17 07:24 99.0 F 106 H 15 142/94 H 100 09/18/17 04:00 98.6 F 105 H 18 121/81 99 09/18/17 02:12 100 09/18/17 00:00 98.3 F 102 H 16 128/80 100 Weight Weight 110 lb I&O: 09/17/17 09/18/17 09/19/17 06:59 06:59 06:59 Intake Total 3082 Output Total 400 Balance 2682 Result Diagrams: 09/18/17 03:31 09/18/17 03:31 Additional Labs: Accuchecks 09/18/17 09/18/17 09/18/17 09:09 08:05 07:13 POC Glucose 255 H 202 H 196 H 09/18/17 09/18/17 09/18/17 05:54 05:09 03:01 POC Glucose 133 H 138 H 162 H 09/18/17 09/18/17 09/17/17 01:26 00:33 23:28 POC Glucose 171 H 153 H 176 H 09/17/17 09/17/17 09/17/17 22:25 21:08 20:25 POC Glucose 161 H 169 H 186 H 09/17/17 09/17/17 09/17/17 19:10 18:14 17:10 POC Glucose 176 H 130 H 135 H 09/17/17 09/17/17 09/17/17 16:25 15:26 14:17 POC Glucose 132 H 156 H 157 H 09/17/17 09/17/17 09/17/17 13:06 11:57 10:59 POC Glucose 164 H 210 H 204 H 09/17/17 09/17/17 09:55 08:58 POC Glucose 199 H 230 H EKG Reviewed by me: Yes (nsr) Phys Exam - Physical Examination Constitutional: NAD Dx/Plan (1) DKA, type 2 Code(s): E11.10 - TYPE 2 DIABETES MELLITUS WITH KETOACIDOSIS WITHOUT COMA Status: Resolved (2) Hypophosphatemia Code(s): E83.39 - OTHER DISORDERS OF PHOSPHORUS METABOLISM Status: Acute (3) Diabetic gastroparesis Code(s): E11.43 - TYPE 2 DIABETES W DIABETIC AUTONOMIC (POLY)NEUROPATHY; K31.84 - GASTROPARESIS Status: Chronic Comment: (4) Hematemesis with nausea Code(s): K92.0 - HEMATEMESIS Status: Acute Comment: Likely Eloina-Alvarez tear from emesis (5) Hypokalemia Code(s): E87.6 - HYPOKALEMIA Status: Acute Comment: (6) Intractable nausea and vomiting Code(s): R11.2 - NAUSEA WITH VOMITING, UNSPECIFIED Status: Acute Comment: (7) Diabetes mellitus, type II, insulin dependent Code(s): E11.9 - TYPE 2 DIABETES MELLITUS WITHOUT COMPLICATIONS; Z79.4 - MANAGER CARDIAC CATH (CURRENT) USE OF INSULIN Status: Chronic Comment: (8) Moderate protein-calorie malnutrition Code(s): E44.0 - MODERATE PROTEIN-CALORIE MALNUTRITION Status: Chronic Comment: (9) Lactic acidosis Code(s): E87.2 - ACIDOSIS Status: Acute - Plan cont current plan of care * today will dc insulin drip * will monitor accucheck q 4 hrly and cover with sliding scale * will continue IVF dex with NS with KCL at 75 ml per hour until pt can tolerate PO intake * currently on clear liquid diet, will advance when she tolerate food * she needs more time to get better, she is on optimum symptomatic treatment * medication reviewed as below * symptomatic treatment * transfer to medical floor * ambulate as tolerated * add carafate * will monitor. * replace potassium phosphate Review of Systems - Review of Systems Constitutional: negative: fever, chills, sweats, weakness, malaise, other Eyes: negative: Pain, Vision Change, Conjunctivae Inflammation, Eyelid Inflammation, Redness, Other ENT: negative: Ear Pain, Ear Discharge, Nose Pain, Nose Discharge, Nose Congestion, Mouth Pain, Mouth Swelling, Throat Pain, Throat Swelling, Other Respiratory: negative: Cough, Dry, Shortness of Breath, Hemoptysis, SOB with Excertion, Pleuritic Pain, Sputum, Wheezing Cardiovascular: negative: chest pain, palpitations, orthopnea, paroxysmal nocturnal dyspnea, edema, light headedness, other Gastrointestinal: Nausea, Vomiting. negative: Abdominal Pain, Diarrhea, Constipation, Melena, Hematochezia, Other Genitourinary: negative: Dysuria, Frequency, Incontinence, Hematuria, Retention , Other Musculoskeletal: negative: Neck Pain, Shoulder Pain, Arm Pain, Back Pain, Hand Pain, Leg Pain, Foot Pain, Other Skin: negative: Rash, Lesions, Taz, Bruising, Other - Medications/Allergies Allergies/Adverse Reactions: Allergies Allergy/AdvReac Type Severity Reaction Status Date / Time codeine Allergy Unknown Verified 05/20/17 18:10 amitriptyline Allergy Verified 05/20/17 18:10 haloperidol [From Haldol] Allergy Verified 05/20/17 18:10 insulin aspart [From Novolog] Allergy Verified 05/20/17 18:10 insulin glargine Allergy Verified 05/20/17 18:10 [From Lantus] latex Allergy Verified 05/20/17 18:10 metoclopramide [From Reglan] Allergy Verified 05/20/17 18:10 Medications: Current Medications Acetaminophen (Tylenol) 650 mg PO Q4H PRN PRN Reason: Headache/Fever or Pain Al Hydroxide/Mg Hydroxide (Maalox) 30 ml PO Q6H PRN PRN Reason: Heartburn or Indigestion Last Admin: 09/18/17 09:08 Dose: 30 ml Dextrose/Water (Dextrose 50%) 25 gm SLOW IVP PRN PRN PRN Reason: Hypoglycemia Diphenoxylate HCl/Atropine (Lomotil) 1 tab PO QIDPRN PRN PRN Reason: Diarrhea/Loose Stools Enoxaparin Sodium (Lovenox) 40 mg SC 0900 TONY Last Admin: 09/18/17 09:13 Dose: 40 mg Glucagon (Glucagon) 1 mg IM PRN PRN PRN Reason: Hypoglycemia Hydralazine HCl (Apresoline) 10 mg SLOW IVP Q4H PRN PRN Reason: Systolic BP > 180 Promethazine HCl 25 mg/ Sodium (Chloride) 51 mls @ 204 mls/hr IVPB Q6H PRN PRN Reason: Nausea/Vomiting Last Admin: 09/17/17 20:24 Dose: 51 mls Dextrose/Water (D5w) 1,000 mls @ 0 mls/hr IV .Q0M PRN; As Directed PRN Reason: Hypoglycemia Potassium Phosphate 12 mmol/ (Sodium Chloride) 104 mls @ 25 mls/hr IVPB ONE [facility] Stop: 09/18/17 12:00 Magnesium Sulfate 4 gm/ Sodium (Chloride) 258 mls @ 86 mls/hr IVPB ONE [facility] Stop: 09/18/17 13:00 Potassium Phosphate 15 mmol/ (Sodium Chloride) 255 mls @ 62.5 mls/hr IVPB ONE [facility] Stop: 09/18/17 14:00 Insulin Human Isoph/Insulin Regular (Humulin 70/30) 10 units SC BID [facility] Last Admin: 09/18/17 09:06 Dose: 10 units Insulin Human Regular (Humulin R) 0 units SC .MODERATE SLIDING SC PRN PRN Reason: Moderate Correctional Scale Insulin Human Regular (Humulin R) 0 units SC .BEDTIME SLIDING SC PRN PRN Reason: Bedtime Correctional Scale Labetalol HCl (Normodyne) 10 mg SLOW IVP Q4H PRN PRN Reason: Systolic BP > 180 Loperamide HCl (Imodium) 2 mg PO PRN PRN PRN Reason: Diarrhea/Loose Stools Loratadine (Claritin) 10 mg PO DAILYPRN PRN PRN Reason: Sinus Symptoms Magnesium Hydroxide (Milk Of Magnesium) 30 ml PO DAILYPRN PRN PRN Reason: Constipation Mineral Oil/White Petrolatum (Eucerin Cream) 0 gm TOP BIDPRN PRN PRN Reason: Dry Skin Ondansetron HCl (Zofran Odt) 4 mg SL Q6H PRN PRN Reason: Nausea/Vomiting Ondansetron HCl (Zofran) 4 mg IVP Q6H PRN PRN Reason: Nausea/Vomiting Phenol (Chloraseptic [place] 180 Ml Bot) 0 ml PO PRN PRN PRN Reason: Sore Throat Sodium Chloride (Flush - Normal Saline) 10 ml IVF Q12HR [facility] Last Admin: 09/18/17 09:17 Dose: Not Given Sodium Chloride (Flush - Normal Saline) 10 ml IVF PRN PRN PRN Reason: Saline Flush Sucralfate (Carafate) 1 gm PO Q6H PRN PRN Reason: Dyspepsia Zolpidem Tartrate (Ambien) 5 mg PO HSPRN PRN PRN Reason: Insomnia
[2017-09-18] MEDS: Simethicone Chewable 80 MG TAB PO PRN ×2 (14:41→22:21)
[2017-09-18] MEDS: Sucralfate 1 GM/10 ML UDCUP PO PRN (15:05)
[2017-09-18] MEDS: Insulin Regular 300 UNITS/3 ML VIAL SC PRN (16:15)
[2017-09-18] MEDS: Promethazine HCl 25 MG in Sodium Chloride 0.9% 50 ML IVPB PRN (19:11)
[2017-09-18] MEDS: Lorazepam 1 MG TAB PO PRN (19:45)
[2017-09-18] MEDS: Dextrose 5 %-0.45 % NaCl 1,000 ML IV SCH (20:20)
[2017-09-19] MEDS: Promethazine HCl 25 MG in Sodium Chloride 0.9% 50 ML IVPB PRN ×2 (01:32→22:32)
[2017-09-19] MEDS: Sucralfate 1 GM/10 ML UDCUP PO PRN ×2 (03:50→11:14)
[2017-09-19] MEDS: Ondansetron HCl/PF 4 MG/2 ML Vial IVP PRN ×2 (03:50→19:26)
[2017-09-19 05:13] LABS: Anion Gap 11 mmol/L (10-20); BUN (Urea Nitrogen) Less than 4 mg/dL (7.0-18.7); Calc. Creatinine Clearance 87 mL/min (70-130); Calcium 8.7 mg/dL (7.8-10.44); Carbon Dioxide 27 mmol/L (22-29); Chloride 101 mmol/L (98-107); Estimated GFR-MDRD Greater than 90; Glucose 266 mg/dL (70-105); Phosphorus 2.7 mg/dL (2.3-4.7); Potassium 3.4 mmol/L (3.5-5.1); Sodium 136 mmol/L (136-145)
[2017-09-19] MEDS ORDERED: Potassium Chloride 20 MEQ TAB PO SCH (07:30)
[2017-09-19] MEDS: Enoxaparin Sodium 40 MG/0.4 ML SYRINGE SC SCH (08:31)
[2017-09-19] MEDS: Insulin NPH/Reg Insulin Hm 300 UNITS/3 ML VIAL SC SCH ×2 (08:32→22:30)
[2017-09-19] MEDS: Insulin Regular 300 UNITS/3 ML VIAL SC PRN (08:32)
[2017-09-19] MEDS ORDERED: Pantoprazole 40 MG VIAL IVP SCH (09:00)
[2017-09-19] MEDS: DOMPERIDONE 10 MG PO SCH (09:23)
[2017-09-19] MEDS ORDERED: chlorproMAZINE HCl 25 MG in Sodium Chloride 0.9% 50 ML IVPB PRN (09:59)
--- NOTE | 2017-09-19 10:03 | PDOC.PN ---
- Subjective Encounter Start Date: 09/19/17 Encounter Start Time: 08:00 has intractable hiccough, has nausea and liquid diarrhoea, no fever, - Objective Resuscitation Status: Resuscitation Status FULL:Full Resuscitation MAR Reviewed: Yes Vital Signs & Weight: Vital Signs (12 hours) Temp Pulse Resp BP Pulse Ox 09/19/17 08:13 98.5 F 96 14 133/84 96 09/19/17 08:00 98.5 F 96 14 09/19/17 04:30 97.9 F 09/19/17 04:00 106 H 18 123/81 98 09/19/17 00:30 98.1 F 100 18 145/87 H 98 09/18/17 22:28 98.6 F 100 16 99 Weight Admit Weight 110 lb Weight 110 lb I&O: 09/18/17 09/19/17 09/20/17 06:59 06:59 06:59 Intake Total 3082 810 Output Total 582 223 5922 Balance 2682 360 -1600 Result Diagrams: 09/18/17 03:31 09/19/17 04:44 Additional Labs: Accuchecks 09/19/17 09/19/17 09/19/17 08:10 04:20 00:33 POC Glucose 213 H 236 H 185 H 09/18/17 09/18/17 09/18/17 20:10 16:03 11:08 POC Glucose 120 H 150 H 185 H Phys Exam - Physical Examination Constitutional: NAD HEENT: PERRLA, moist MMs, sclera anicteric Neck: no JVD, supple Respiratory: no wheezing, no rales, no rhonchi Cardiovascular: RRR, no significant murmur, no rub Gastrointestinal: soft, non-tender, no distention, positive bowel sounds Musculoskeletal: no edema, pulses present Neurological: non-focal, normal sensation, moves all 4 limbs Psychiatric: normal affect, A&O x 3 Skin: no rash, normal turgor Dx/Plan (1) DKA, type 2 Code(s): E11.10 - TYPE 2 DIABETES MELLITUS WITH KETOACIDOSIS WITHOUT COMA Status: Resolved (2) Hypophosphatemia Code(s): E83.39 - OTHER DISORDERS OF PHOSPHORUS METABOLISM Status: Resolved (3) Diabetic gastroparesis Code(s): E11.43 - TYPE 2 DIABETES W DIABETIC AUTONOMIC (POLY)NEUROPATHY; K31.84 - GASTROPARESIS Status: Chronic Comment: (4) Hematemesis with nausea Code(s): K92.0 - HEMATEMESIS Status: Acute Comment: Likely Eloina-Alvarez tear from emesis (5) Hypokalemia Code(s): E87.6 - HYPOKALEMIA Status: Acute Comment: (6) Intractable nausea and vomiting Code(s): R11.2 - NAUSEA WITH VOMITING, UNSPECIFIED Status: Acute Comment: (7) Diabetes mellitus, type II, insulin dependent Code(s): E11.9 - TYPE 2 DIABETES MELLITUS WITHOUT COMPLICATIONS; Z79.4 - [employer] (CURRENT) USE OF INSULIN Status: Chronic Comment: (8) Moderate protein-calorie malnutrition Code(s): E44.0 - MODERATE PROTEIN-CALORIE MALNUTRITION Status: Chronic Comment: (9) Lactic acidosis Code(s): E87.2 - ACIDOSIS Status: Acute - Plan cont current plan of care, plan discussed w/ family * will replace potassium * will give chlorpromazine for intractable hiccough * consult GI today * send stool study for infection * medication reviewed as below * symptomatic treatment * discussed with mother on phone. * continue IVF and supportive care Review of Systems - Review of Systems Constitutional: negative: fever, chills, sweats, weakness, malaise, other Eyes: negative: Pain, Vision Change, Conjunctivae Inflammation, Eyelid Inflammation, Redness, Other ENT: negative: Ear Pain, Ear Discharge, Nose Pain, Nose Discharge, Nose Congestion, Mouth Pain, Mouth Swelling, Throat Pain, Throat Swelling, Other Respiratory: negative: Cough, Dry, Shortness of Breath, Hemoptysis, SOB with Excertion, Pleuritic Pain, Sputum, Wheezing Cardiovascular: negative: chest pain, palpitations, orthopnea, paroxysmal nocturnal dyspnea, edema, light headedness, other Gastrointestinal: Nausea, Diarrhea, Other (hicough). negative: Vomiting, Abdominal Pain, Constipation, Melena, Hematochezia Genitourinary: negative: Dysuria, Frequency, Incontinence, Hematuria, Retention , Other Musculoskeletal: negative: Neck Pain, Shoulder Pain, Arm Pain, Back Pain, Hand Pain, Leg Pain, Foot Pain, Other Skin: negative: Rash, Lesions, Taz, Bruising, Other - Medications/Allergies Allergies/Adverse Reactions: Allergies Allergy/AdvReac Type Severity Reaction Status Date / Time codeine Allergy Unknown Verified 05/20/17 18:10 amitriptyline Allergy Verified 05/20/17 18:10 haloperidol [From Haldol] Allergy Verified 05/20/17 18:10 insulin aspart [From Novolog] Allergy Verified 05/20/17 18:10 insulin glargine Allergy Verified 05/20/17 18:10 [From Lantus] latex Allergy Verified 05/20/17 18:10 metoclopramide [From Reglan] Allergy Verified 05/20/17 18:10 Medications: Current Medications Acetaminophen (Tylenol) 650 mg PO Q4H PRN PRN Reason: Headache/Fever or Pain Al Hydroxide/Mg Hydroxide (Maalox) 30 ml PO Q6H PRN PRN Reason: Heartburn or Indigestion Last Admin: 09/18/17 09:08 Dose: 30 ml Dextrose/Water (Dextrose 50%) 25 gm SLOW IVP PRN PRN PRN Reason: Hypoglycemia Diphenoxylate HCl/Atropine (Lomotil) 1 tab PO QIDPRN PRN PRN Reason: Diarrhea/Loose Stools Duloxetine HCl (Cymbalta) 20 mg PO BID [facility] Last Admin: 09/19/17 08:30 Dose: 20 mg Enoxaparin Sodium (Lovenox) 40 mg SC 0900 [facility] Last Admin: 09/19/17 08:31 Dose: 40 mg Glucagon (Glucagon) 1 mg IM PRN PRN PRN Reason: Hypoglycemia Hydralazine HCl (Apresoline) 10 mg SLOW IVP Q4H PRN PRN Reason: Systolic BP > 180 Promethazine HCl 25 mg/ Sodium (Chloride) 51 mls @ 204 mls/hr IVPB Q6H PRN PRN Reason: Nausea/Vomiting Last Admin: 09/19/17 01:32 Dose: 51 mls Dextrose/Water (D5w) 1,000 mls @ 0 mls/hr IV .Q0M PRN; As Directed PRN Reason: Hypoglycemia Dextrose/Sodium Chloride (D5 1/2 Ns) 1,000 mls @ 75 mls/hr IV .[id number] [facility] Last Admin: 09/18/17 20:20 Dose: 1,000 mls Chlorpromazine HCl 25 mg/ (Sodium Chloride) 51 mls @ 102 mls/hr IVPB Q6H PRN PRN Reason: Hiccups Insulin Human Isoph/Insulin Regular (Humulin 70/30) 10 units SC BID [facility] Last Admin: 09/19/17 08:32 Dose: 10 units Insulin Human Regular (Humulin R) 0 units SC .MODERATE SLIDING SC PRN PRN Reason: Moderate Correctional Scale Last Admin: 09/19/17 08:32 Dose: 4 unit Insulin Human Regular (Humulin R) 0 units SC .BEDTIME SLIDING SC PRN PRN Reason: Bedtime Correctional Scale Last Admin: 09/19/17 04:27 Dose: 2 unit Labetalol HCl (Normodyne) 10 mg SLOW IVP Q4H PRN PRN Reason: Systolic BP > 180 Loperamide HCl (Imodium) 2 mg PO PRN PRN PRN Reason: Diarrhea/Loose Stools Loratadine (Claritin) 10 mg PO DAILYPRN PRN PRN Reason: Sinus Symptoms Lorazepam (Ativan) 1 mg PO TIDPRN PRN PRN Reason: Anxiety Last Admin: 09/18/17 19:45 Dose: 1 mg Magnesium Hydroxide (Milk Of Magnesium) 30 ml PO DAILYPRN PRN PRN Reason: Constipation Mineral Oil/White Petrolatum (Eucerin Cream) 0 gm TOP BIDPRN PRN PRN Reason: Dry Skin Ondansetron HCl (Zofran Odt) 4 mg SL Q6H PRN PRN Reason: Nausea/Vomiting Ondansetron HCl (Zofran) 4 mg IVP Q6H PRN PRN Reason: Nausea/Vomiting Last Admin: 09/19/17 03:50 Dose: 4 mg Domperidone 10 Mg 0 each PO DAILY [facility] Last Admin: 09/19/17 09:23 Dose: 1 each Phenol (Chloraseptic [place] 180 Ml Bot) 0 ml PO PRN PRN PRN Reason: Sore Throat Potassium Chloride (K-Dur) 40 meq PO NOW [facility] Stop: 09/19/17 12:00 Last Admin: 09/19/17 09:23 Dose: 40 meq Simethicone (Mylicon Chewable) 80 mg PO PRN PRN PRN Reason: Gas Pain Last Admin: 09/18/17 22:21 Dose: 80 mg Sodium Chloride (Flush - Normal Saline) 10 ml IVF Q12HR [facility] Last Admin: 09/19/17 08:34 Dose: 10 ml Sodium Chloride (Flush - Normal Saline) 10 ml IVF PRN PRN PRN Reason: Saline Flush Last Admin: 09/18/17 19:11 Dose: 10 ml Sucralfate (Carafate) 1 gm PO Q6H PRN PRN Reason: Dyspepsia Last Admin: 09/19/17 03:50 Dose: 1 gm Zolpidem Tartrate (Ambien) 5 mg PO HSPRN PRN PRN Reason: Insomnia
[2017-09-19] MEDS ORDERED: Prevnar 13-Val Conj/PF 0.5 ML SYRINGE IM ONE (10:15)
[2017-09-19] MEDS: Simethicone Chewable 80 MG TAB PO PRN (11:14)
[2017-09-19] MEDS: Dextrose 5 %-0.45 % NaCl 1,000 ML IV SCH ×2 (11:15→11:27)
--- NOTE | 2017-09-19 12:30 | CON ---
DATE OF CONSULTATION: 09/19/2017 GI INPATIENT CONSULTATION NOTE REQUESTING PHYSICIAN: Dr. Espinosa. REASON FOR CONSULTATION: Nausea and vomiting. HISTORY OF PRESENT ILLNESS: Tameka Martin is a 42-year-old woman, a patient of my GI colleague, Dr Joon Burgos. He has been seeing her since 01/2017 for diabetic gastroparesis. She has had extensiv e workup both here and in [place] with Dr. Saxena. She evidently had an EGD which was unremarkable la march at [facility]. Dr. Burgos has been working with her over the past few months trialing multiple different medications. She had an intolerance to Reglan as well as amitriptyline. She was tried on dronabinol, but did not feel it was effective and has discontinued this. She actually stat es that over the past couple of months, she had been doing quite well with her gastroparesis on dompe ridone 10 mg t.i.d. as well as Cymbalta, also getting acupuncture twice per week. She had gained mary te a bit of weight back and was feeling very happy with how she was doing. Five days ago, the patien t developed acute watery diarrhea, with multiple nonbloody bowel movements per day. After a couple o f days of this, she took an Imodium. She feels that is when her symptoms really started getting bad. The diarrhea did not really slow down, but she additionally started to have a whole lot of nausea a nd then had repeated episodes of nonbloody emesis. She got dehydrated and presented to the hospital and was admitted 2 days ago in diabetic ketoacidosis initially with glucose of 664 and beta hydroxybu tyrate elevated to 4.9. She was treated appropriately with fluid resuscitation and insulin and her a nion gap closed quickly by the following day. Note that test was negative. LFTs and lipas e were all normal. However, she has continued to have nausea and vomiting as well as loose stools ov er the past couple of days since then despite correction of electrolyte abnormalities. She had a jerrica elidia bowel movement in the middle of the night last night and she did have an episode of emesis this m orning. She is currently on a full liquid diet and also receiving Glucerna. She does feel that the diarrhea has slowed down quite a bit and is hoping that the nausea will also start diminishing as wel l. She is being treated with multiple agents including sucralfate, simethicone, promethazine, Zofran , and Ativan. She got back on her domperidone t.i.d. She is also now back on her Cymbalta as well. REVIEW OF SYSTEMS: Full review of systems including constitutional, head, eyes, ears, nose, throat, GI, , cardiovascular, respiratory, musculoskeletal, and neurologic systems is negative except as no koko in the HPI. PAST MEDICAL HISTORY: 1. Diabetes type 1. 2. Diabetic neuropathy. 3. Diabetic gastroparesis. 4. Diabetic ketoacidosis, multiple episodes. 5. Tonsillectomy. 6. Depression and anxiety. SOCIAL HISTORY: The patient lives at home with her family. No tobacco, alcohol, or drug abuse. FAMILY HISTORY: Diabetes among several family members. ALLERGIES: AMITRIPTYLINE, CODEINE, HALDOL, LATEX, REGLAN, NATURAL RUBBER. HOME MEDICATIONS: Linzess p.r.n., domperidone 10 mg t.i.d., Cymbalta 20 mg p.o. b.i.d., erythromycin 250 mg p.o. q.i.d. as needed, insulin sliding scale, insulin 70/30 12 units subcutaneously b.i.d., A tivan 1 mg t.i.d. p.r.n., Toprol-XL 12.5 mg daily, Zofran 4 mg q.8 hours p.r.n., MiraLax 17 grams joann ly, senna p.r.n., tramadol 50 mg p.r.n. PHYSICAL EXAMINATION: VITAL SIGNS: Temperature 98.5, pulse 96, blood pressure 133/84, 96% oxygen saturation on room air. GENERAL: A 42-year-old woman lying in bed comfortably in no distress. MENTAL: She is in good spirits, alert and fully oriented, pleasant, conversational. She can give a detailed coherent history. SKIN: No jaundice, no rashes were palpable. EYES: No scleral icterus. Extraocular movements intact. ENT: Mucous membranes moist, no oral lesions. LYMPH: No submandibular or supraclavicular lymphadenopathy. Thyroid nontender to palpation. HEART: Regular rate and rhythm. LUNGS: Clear to auscultation bilaterally. ABDOMEN: Nondistended. Bowel sounds are present, soft, nontender to palpation throughout. No tab s or organomegaly appreciated. EXTREMITIES: No peripheral edema. VESSELS: Radial pulses 2+ bilaterally. NEUROLOGIC: Cranial nerves II-XII intact bilaterally. No focal deficits. LABORATORY STUDIES: WBC 10.3, hemoglobin 12.2, platelets 182. Sodium 136, potassium 3.4, BUN less t ziegler 4, creatinine 0.68, glucose was 664 on admission, 213 today. Beta hydroxybutyrate was initially 4.9, now 0.26. Alcohol level negative. Acetaminophen level negative. Lipase normal at 9. Serum pr egnancy test negative. Total bilirubin 1.3, alkaline phosphatase 96, AST 16, ALT 14, and albumin 4.7 . IMAGING STUDIES: None this admission. Note she had an MRI of the brain which was normal on 06/28/19. She evidently had a normal EGD in 03/2017 at [facility]. ASSESSMENT AND PLAN: 1. Nausea and vomiting, acute on chronic. 2. Diabetic gastroparesis. 3. Diabetic ketoacidosis, resolved. 4. Acute diarrhea. It would appear that on a more chronic basis, the patient's gastroparesis has ac tually been quite well controlled over the past few months on her domperidone and Cymbalta and with h er getting her acupuncture. My impression is that the patient likely developed an acute viral gastro enteritis last weekend and the resulting dehydration and having taken Imodium, cause an exacerbation of her gastroparesis as well as throwing her into diabetic ketoacidosis. Her symptoms do seem to be improving with maximal supportive care here. I agree with her continuing on her domperidone as well as Cymbalta, additionally using Zofran as needed. Stool studies have evidently been ordered, so we w ill follow along with this. Advance diet as tolerated. Hopefully, with symptomatic improvement, the patient will be able to be discharged soon.
[2017-09-19] MEDS: Mag-Al 1200 mg/1200 mg/30 ML UDCUP PO PRN (21:45)
[2017-09-20] MEDS: Lorazepam 1 MG TAB PO PRN (00:19)
[2017-09-20 05:27] LABS: Anion Gap 11 mmol/L (10-20); BUN (Urea Nitrogen) 5 mg/dL (7.0-18.7); Calc. Creatinine Clearance 88 mL/min (70-130); Calcium 8.5 mg/dL (7.8-10.44); Carbon Dioxide 28 mmol/L (22-29); Chloride 101 mmol/L (98-107); Estimated GFR-MDRD Greater than 90; Glucose 216 mg/dL (70-105); Sodium 137 mmol/L (136-145)
[2017-09-20 05:57] LABS: Potassium 2.9 mmol/L (3.5-5.1)
[2017-09-20] MEDS: Insulin Regular 300 UNITS/3 ML VIAL SC PRN (06:35)
[2017-09-20] MEDS: Potassium Chloride 20 MEQ TAB PO SCH ×2 (06:35→10:49)
[2017-09-20 07:30] LABS: Magnesium 1.9 mg/dL (1.6-2.6); Phosphorus 2.7 mg/dL (2.3-4.7)
[2017-09-20] MEDS: Enoxaparin Sodium 40 MG/0.4 ML SYRINGE SC SCH (08:51)
[2017-09-20] MEDS: Insulin NPH/Reg Insulin Hm 300 UNITS/3 ML VIAL SC SCH ×2 (08:52→20:48)
[2017-09-20] MEDS: DOMPERIDONE 10 MG PO SCH (10:01)
[2017-09-20] MEDS: Dextrose 5 %-0.45 % NaCl 1,000 ML IV SCH (10:46)
[2017-09-20] MEDS: Mag-Al 1200 mg/1200 mg/30 ML UDCUP PO PRN ×2 (10:49→18:11)
--- NOTE | 2017-09-20 11:11 | PDOC.PN ---
- Subjective Encounter Start Date: 09/20/17 Encounter Start Time: 08:30 Patient seen and examined. No new complaints. No overnight events today feels better - Objective Resuscitation Status: Resuscitation Status FULL:Full Resuscitation MAR Reviewed: Yes Vital Signs & Weight: Vital Signs (12 hours) Temp Pulse Resp BP BP Pulse Ox 09/20/17 08:00 98.7 F 88 14 112/73 97 09/20/17 04:00 98.9 F 95 16 118/72 96 09/20/17 00:00 98.6 F 102 H 18 135/91 H 99 Weight Admit Weight 110 lb Weight 110 lb I&O: 09/19/17 09/20/17 09/21/17 06:59 06:59 06:59 Intake Total 810 917 Output Total 450 2300 Balance 360 -1383 Result Diagrams: 09/18/17 03:31 09/20/17 04:46 Additional Labs: Accuchecks 09/20/17 09/20/17 09/20/17 10:30 04:50 02:01 POC Glucose 125 H 203 H 186 H 09/19/17 09/19/17 09/19/17 20:18 16:01 12:19 POC Glucose 140 H 104 94 Phys Exam - Physical Examination Constitutional: NAD HEENT: PERRLA, moist MMs, sclera anicteric Neck: no JVD, supple Respiratory: no wheezing, no rales, no rhonchi Cardiovascular: RRR, no significant murmur, no rub Gastrointestinal: soft, non-tender, no distention, positive bowel sounds Musculoskeletal: no edema, pulses present Neurological: non-focal, normal sensation, moves all 4 limbs Lymphatic: no nodes Psychiatric: normal affect, A&O x 3 Skin: no rash, normal turgor Dx/Plan (1) DKA, type 2 Code(s): E11.10 - TYPE 2 DIABETES MELLITUS WITH KETOACIDOSIS WITHOUT COMA Status: Resolved (2) Hypophosphatemia Code(s): E83.39 - OTHER DISORDERS OF PHOSPHORUS METABOLISM Status: Resolved (3) Diabetic gastroparesis Code(s): E11.43 - TYPE 2 DIABETES W DIABETIC AUTONOMIC (POLY)NEUROPATHY; K31.84 - GASTROPARESIS Status: Chronic Comment: (4) Hematemesis with nausea Code(s): K92.0 - HEMATEMESIS Status: Acute Comment: Likely Eloina-Alvarez tear from emesis (5) Hypokalemia Code(s): E87.6 - HYPOKALEMIA Status: Acute Comment: (6) Intractable nausea and vomiting Code(s): R11.2 - NAUSEA WITH VOMITING, UNSPECIFIED Status: Acute Comment: (7) Diabetes mellitus, type II, insulin dependent Code(s): E11.9 - TYPE 2 DIABETES MELLITUS WITHOUT COMPLICATIONS; Z79.4 - [facility]PC (CURRENT) USE OF INSULIN Status: Chronic Comment: (8) Moderate protein-calorie malnutrition Code(s): E44.0 - MODERATE PROTEIN-CALORIE MALNUTRITION Status: Chronic Comment: (9) Lactic acidosis Code(s): E87.2 - ACIDOSIS Status: Acute - Plan cont current plan of care * today replace potassium * advance to full liquid and if tolerates then will advance to ada diet * medication reviewed as below * symptomatic treatment * expecting discharge soon. Review of Systems - Review of Systems Eyes: negative: Pain, Vision Change, Conjunctivae Inflammation, Eyelid Inflammation, Redness, Other ENT: negative: Ear Pain, Ear Discharge, Nose Pain, Nose Discharge, Nose Congestion, Mouth Pain, Mouth Swelling, Throat Pain, Throat Swelling, Other Respiratory: negative: Cough, Dry, Shortness of Breath, Hemoptysis, SOB with Excertion, Pleuritic Pain, Sputum, Wheezing Cardiovascular: negative: chest pain, palpitations, orthopnea, paroxysmal nocturnal dyspnea, edema, light headedness, other Gastrointestinal: negative: Nausea, Vomiting, Abdominal Pain, Diarrhea, Constipation, Melena, Hematochezia, Other Genitourinary: negative: Dysuria, Frequency, Incontinence, Hematuria, Retention , Other Musculoskeletal: negative: Neck Pain, Shoulder Pain, Arm Pain, Back Pain, Hand Pain, Leg Pain, Foot Pain, Other Skin: negative: Rash, Lesions, Taz, Bruising, Other - Medications/Allergies Allergies/Adverse Reactions: Allergies Allergy/AdvReac Type Severity Reaction Status Date / Time codeine Allergy Unknown Verified 05/20/17 18:10 amitriptyline Allergy Verified 05/20/17 18:10 haloperidol [From Haldol] Allergy Verified 05/20/17 18:10 insulin aspart [From Novolog] Allergy Verified 05/20/17 18:10 insulin glargine Allergy Verified 05/20/17 18:10 [From Lantus] latex Allergy Verified 05/20/17 18:10 metoclopramide [From Reglan] Allergy Verified 05/20/17 18:10 Medications: Current Medications Acetaminophen (Tylenol) 650 mg PO Q4H PRN PRN Reason: Headache/Fever or Pain Al Hydroxide/Mg Hydroxide (Maalox) 30 ml PO Q6H PRN PRN Reason: Heartburn or Indigestion Last Admin: 09/20/17 10:49 Dose: 30 ml Dextrose/Water (Dextrose 50%) 25 gm SLOW IVP PRN PRN PRN Reason: Hypoglycemia Diphenoxylate HCl/Atropine (Lomotil) 1 tab PO QIDPRN PRN PRN Reason: Diarrhea/Loose Stools Duloxetine HCl (Cymbalta) 20 mg PO BID [facility] Last Admin: 09/20/17 08:52 Dose: 20 mg Enoxaparin Sodium (Lovenox) 40 mg SC 0900 [facility] Last Admin: 09/20/17 08:51 Dose: 40 mg Glucagon (Glucagon) 1 mg IM PRN PRN PRN Reason: Hypoglycemia Hydralazine HCl (Apresoline) 10 mg SLOW IVP Q4H PRN PRN Reason: Systolic BP > 180 Promethazine HCl 25 mg/ Sodium (Chloride) 51 mls @ 204 mls/hr IVPB Q6H PRN PRN Reason: Nausea/Vomiting Last Admin: 09/19/17 22:32 Dose: 51 mls Dextrose/Water (D5w) 1,000 mls @ 0 mls/hr IV .Q0M PRN; As Directed PRN Reason: Hypoglycemia Chlorpromazine HCl 25 mg/ (Sodium Chloride) 51 mls @ 102 mls/hr IVPB Q6H PRN; Protocol PRN Reason: Hiccups Last Admin: 09/19/17 11:15 Dose: 51 mls Dextrose/Sodium Chloride (D5 1/2 Ns) 1,000 mls @ 30 mls/hr IV .Q24H [facility] Last Admin: 09/20/17 10:46 Dose: Not Given Insulin Human Isoph/Insulin Regular (Humulin 70/30) 10 units SC BID [facility] Last Admin: 09/20/17 08:52 Dose: 10 units Insulin Human Regular (Humulin R) 0 units SC .MODERATE SLIDING SC PRN PRN Reason: Moderate Correctional Scale Last Admin: 09/20/17 06:35 Dose: 4 unit Insulin Human Regular (Humulin R) 0 units SC .BEDTIME SLIDING SC PRN PRN Reason: Bedtime Correctional Scale Last Admin: 09/19/17 04:27 Dose: 2 unit Labetalol HCl (Normodyne) 10 mg SLOW IVP Q4H PRN PRN Reason: Systolic BP > 180 Loperamide HCl (Imodium) 2 mg PO PRN PRN PRN Reason: Diarrhea/Loose Stools Loratadine (Claritin) 10 mg PO DAILYPRN PRN PRN Reason: Sinus Symptoms Lorazepam (Ativan) 1 mg PO TIDPRN PRN PRN Reason: Anxiety Last Admin: 09/20/17 00:19 Dose: 1 mg Magnesium Hydroxide (Milk Of Magnesium) 30 ml PO DAILYPRN PRN PRN Reason: Constipation Mineral Oil/White Petrolatum (Eucerin Cream) 0 gm TOP BIDPRN PRN PRN Reason: Dry Skin Ondansetron HCl (Zofran Odt) 4 mg SL Q6H PRN PRN Reason: Nausea/Vomiting Ondansetron HCl (Zofran) 4 mg IVP Q6H PRN PRN Reason: Nausea/Vomiting Last Admin: 09/19/17 19:26 Dose: 4 mg Domperidone 10 Mg 0 each PO DAILY [facility] Last Admin: 09/20/17 10:01 Dose: 1 each Phenol (Chloraseptic [place] 180 Ml Bot) 0 ml PO PRN PRN PRN Reason: Sore Throat Simethicone (Mylicon Chewable) 80 mg PO PRN PRN PRN Reason: Gas Pain Last Admin: 09/19/17 11:14 Dose: 80 mg Sodium Chloride (Flush - Normal Saline) 10 ml IVF Q12HR [facility] Last Admin: 09/20/17 08:52 Dose: Not Given Sodium Chloride (Flush - Normal Saline) 10 ml IVF PRN PRN PRN Reason: Saline Flush Last Admin: 09/18/17 19:11 Dose: 10 ml Sucralfate (Carafate) 1 gm PO Q6H PRN PRN Reason: Dyspepsia Last Admin: 09/19/17 11:14 Dose: 1 gm Zolpidem Tartrate (Ambien) 5 mg PO HSPRN PRN PRN Reason: Insomnia
--- NOTE | 2017-09-20 12:07 | PRG ---
DATE OF SERVICE: 09/20/2017 SUBJECTIVE: Ms. Martin says she is feeling a lot better today. She has had no further abdominal p ain, nausea, or vomiting. She is advanced to full liquid diet today and has been tolerating this wel l. She is still having some urgent diarrhea. She had a bowel movement in the middle of the night night and again this morning. There is no blood in the stool. She is in good spirits. OBJECTIVE: VITAL SIGNS: Temperature 98.7, pulse 88, blood pressure 112/73, 97% oxygen saturation on room air. GENERAL: No acute distress, cheerful affect. HEART: Regular rate and rhythm. LUNGS: Clear to auscultation bilaterally. ABDOMEN: Soft, nontender to palpation. EXTREMITIES: No peripheral edema. LABORATORY STUDIES: Sodium 137, potassium 2.9, BUN 5, creatinine 0.67, glucose 125. ASSESSMENT AND PLAN: 1. Nausea and vomiting, resolving. 2. Diabetic gastroparesis. 3. Acute diarrhea. I note, she had elevated fecal lactoferrin, negative C. difficile and Campylobac ter. My impression remains that she likely has experienced an acute infectious gastroenteritis on to p of her chronic gastroparesis. Thankfully, symptoms appear to be improving. I agree with advancing her diet as tolerated. If she can tolerate her ADA diet this evening, I think she could potentially be discharged home either this evening or tomorrow morning. She can follow up with Dr. Burgos in the GI clinic on an outpatient basis. GI will sign off, but please call back with any questions or malik rns.
[2017-09-20] MEDS: Promethazine HCl 25 MG in Sodium Chloride 0.9% 50 ML IVPB PRN ×2 (20:48→20:50)
[2017-09-21] MEDS: Mag-Al 1200 mg/1200 mg/30 ML UDCUP PO PRN ×2 (01:22→14:39)
[2017-09-21] MEDS: Lorazepam 1 MG TAB PO PRN (01:25)
[2017-09-21] MEDS: Dextrose 5 %-0.45 % NaCl 1,000 ML IV SCH (01:26)
[2017-09-21 04:19] LABS: Anion Gap 10 mmol/L (10-20); BUN (Urea Nitrogen) 5 mg/dL (7.0-18.7); Calc. Creatinine Clearance 93 mL/min (70-130); Calcium 8.6 mg/dL (7.8-10.44); Carbon Dioxide 29 mmol/L (22-29); Chloride 105 mmol/L (98-107); Estimated GFR-MDRD Greater than 90; Glucose 135 mg/dL (70-105); Potassium 3.6 mmol/L (3.5-5.1); Sodium 140 mmol/L (136-145)
[2017-09-21] MEDS: DOMPERIDONE 10 MG PO SCH (08:22)
[2017-09-21] MEDS: Insulin NPH/Reg Insulin Hm 300 UNITS/3 ML VIAL SC SCH ×2 (08:23→20:37)
[2017-09-21] MEDS: Enoxaparin Sodium 40 MG/0.4 ML SYRINGE SC SCH (08:23)
--- NOTE | 2017-09-21 11:55 | PDOC.PN ---
- Subjective Encounter Start Date: 09/21/17 Encounter Start Time: 08:00 Subjective: no new complaints - Objective Resuscitation Status: Resuscitation Status FULL:Full Resuscitation MAR Reviewed: Yes Vital Signs & Weight: Vital Signs (12 hours) Temp Pulse Resp BP BP Pulse Ox 09/21/17 11:12 98.9 F 93 16 133/82 99 09/21/17 07:43 98.7 F 111 H 18 127/84 97 09/21/17 07:10 97.2 F L 84 16 98 09/21/17 06:28 97.2 F L 84 16 129/78 98 Weight Admit Weight 110 lb Weight 110 lb I&O: 09/20/17 09/21/17 09/22/17 06:59 06:59 06:59 Intake Total 917 1110 Output Total 2300 Balance -1383 1110 Result Diagrams: 09/18/17 03:31 09/21/17 03:39 Additional Labs: Accuchecks 09/21/17 09/21/17 09/21/17 11:15 07:46 05:45 POC Glucose 121 H 224 H 143 H 09/20/17 09/20/17 20:29 15:55 POC Glucose 244 H 114 H Phys Exam - Physical Examination HEENT: PERRLA, moist MMs Neck: no JVD, supple Respiratory: no wheezing, no rales Cardiovascular: RRR, no significant murmur Gastrointestinal: soft, non-tender, positive bowel sounds Musculoskeletal: no edema, pulses present Neurological: non-focal, moves all 4 limbs Psychiatric: A&O x 3 Dx/Plan (1) Intractable nausea and vomiting Code(s): R11.2 - NAUSEA WITH VOMITING, UNSPECIFIED Status: Acute Comment: (2) Diabetes mellitus, type II, insulin dependent Code(s): E11.9 - TYPE 2 DIABETES MELLITUS WITHOUT COMPLICATIONS; Z79.4 - PROPERTY INVESTOR (CURRENT) USE OF INSULIN Status: Chronic Comment: (3) Diabetic gastroparesis Code(s): E11.43 - TYPE 2 DIABETES W DIABETIC AUTONOMIC (POLY)NEUROPATHY; K31.84 - GASTROPARESIS Status: Chronic Comment: (4) Moderate protein-calorie malnutrition Code(s): E44.0 - MODERATE PROTEIN-CALORIE MALNUTRITION Status: Chronic Comment: (5) DKA, type 2 Code(s): E11.10 - TYPE 2 DIABETES MELLITUS WITH KETOACIDOSIS WITHOUT COMA Status: Resolved Qualifiers: Diabetes mellitus mcfp insulin use: with mcfp use Diabetes mellitus complication detail: without coma Qualified Code(s): E11.10 - Type 2 diabetes mellitus with ketoacidosis without coma; Z79.4 - assisted (current) use of insulin; Z79.4 - ferry terminal agent (current) use of insulin; Z79.4 - assisted ( current) use of insulin; Z79.4 - ferry terminal agent (current) use of insulin - Plan oral solid regular diet, then switch to 1800kcal ada diet -: dc home if tolerating oral diet -: to amb in hallway -: on thorazine for nausea -: dc iv fluids, continue 70/30 insulin 10 u bid * . Review of Systems - Medications/Allergies Allergies/Adverse Reactions: Allergies Allergy/AdvReac Type Severity Reaction Status Date / Time codeine Allergy Unknown Verified 05/20/17 18:10 amitriptyline Allergy Verified 05/20/17 18:10 haloperidol [From Haldol] Allergy Verified 05/20/17 18:10 insulin aspart [From Novolog] Allergy Verified 05/20/17 18:10 insulin glargine Allergy Verified 05/20/17 18:10 [From Lantus] latex Allergy Verified 05/20/17 18:10 metoclopramide [From Reglan] Allergy Verified 05/20/17 18:10 Medications: Current Medications Acetaminophen (Tylenol) 650 mg PO Q4H PRN PRN Reason: Headache/Fever or Pain Al Hydroxide/Mg Hydroxide (Maalox) 30 ml PO Q6H PRN PRN Reason: Heartburn or Indigestion Last Admin: 09/21/17 01:22 Dose: 30 ml Dextrose/Water (Dextrose 50%) 25 gm SLOW IVP PRN PRN PRN Reason: Hypoglycemia Diphenoxylate HCl/Atropine (Lomotil) 1 tab PO QIDPRN PRN PRN Reason: Diarrhea/Loose Stools Duloxetine HCl (Cymbalta) 20 mg PO BID [facility] Last Admin: 09/21/17 08:22 Dose: Not Given Enoxaparin Sodium (Lovenox) 40 mg SC 0900 [facility] Last Admin: 09/21/17 08:23 Dose: 40 mg Glucagon (Glucagon) 1 mg IM PRN PRN PRN Reason: Hypoglycemia Hydralazine HCl (Apresoline) 10 mg SLOW IVP Q4H PRN PRN Reason: Systolic BP > 180 Promethazine HCl 25 mg/ Sodium (Chloride) 51 mls @ 204 mls/hr IVPB Q6H PRN PRN Reason: Nausea/Vomiting Last Admin: 09/20/17 20:50 Dose: 51 mls Dextrose/Water (D5w) 1,000 mls @ 0 mls/hr IV .Q0M PRN; As Directed PRN Reason: Hypoglycemia Chlorpromazine HCl 25 mg/ (Sodium Chloride) 51 mls @ 102 mls/hr IVPB Q6H PRN; Protocol PRN Reason: Hiccups Last Admin: 09/19/17 11:15 Dose: 51 mls Dextrose/Sodium Chloride (D5 1/2 Ns) 1,000 mls @ 30 mls/hr IV .Q24H [facility]ONY Last Admin: 09/21/17 01:26 Dose: 1,000 mls Insulin Human Isoph/Insulin Regular (Humulin 70/30) 10 units SC BID [facility] Last Admin: 09/21/17 08:23 Dose: 10 units Insulin Human Regular (Humulin R) 0 units SC .MODERATE SLIDING SC PRN PRN Reason: Moderate Correctional Scale Last Admin: 09/20/17 06:35 Dose: 4 unit Insulin Human Regular (Humulin R) 0 units SC .BEDTIME SLIDING SC PRN PRN Reason: Bedtime Correctional Scale Last Admin: 09/19/17 04:27 Dose: 2 unit Labetalol HCl (Normodyne) 10 mg SLOW IVP Q4H PRN PRN Reason: Systolic BP > 180 Loperamide HCl (Imodium) 2 mg PO PRN PRN PRN Reason: Diarrhea/Loose Stools Loratadine (Claritin) 10 mg PO DAILYPRN PRN PRN Reason: Sinus Symptoms Lorazepam (Ativan) 1 mg PO TIDPRN PRN PRN Reason: Anxiety Last Admin: 09/21/17 01:25 Dose: 1 mg Magnesium Hydroxide (Milk Of Magnesium) 30 ml PO DAILYPRN PRN PRN Reason: Constipation Mineral Oil/White Petrolatum (Eucerin Cream) 0 gm TOP BIDPRN PRN PRN Reason: Dry Skin Ondansetron HCl (Zofran Odt) 4 mg SL Q6H PRN PRN Reason: Nausea/Vomiting Last Admin: 09/20/17 20:48 Dose: 4 mg Ondansetron HCl (Zofran) 4 mg IVP Q6H PRN PRN Reason: Nausea/Vomiting Last Admin: 09/19/17 19:26 Dose: 4 mg Domperidone 10 Mg 0 each PO DAILY TONY Last Admin: 09/21/17 08:22 Dose: Not Given Phenol (Chloraseptic [place] 180 Ml Bot) 0 ml PO PRN PRN PRN Reason: Sore Throat Simethicone (Mylicon Chewable) 80 mg PO PRN PRN PRN Reason: Gas Pain Last Admin: 09/19/17 11:14 Dose: 80 mg Sodium Chloride (Flush - Normal Saline) 10 ml IVF Q12HR TONY Last Admin: 09/21/17 08:23 Dose: Not Given Sodium Chloride (Flush - Normal Saline) 10 ml IVF PRN PRN PRN Reason: Saline Flush Last Admin: 09/18/17 19:11 Dose: 10 ml Sucralfate (Carafate) 1 gm PO Q6H PRN PRN Reason: Dyspepsia Last Admin: 09/19/17 11:14 Dose: 1 gm Zolpidem Tartrate (Ambien) 5 mg PO HSPRN PRN PRN Reason: Insomnia
[2017-09-22 04:57] LABS: Anion Gap 11 mmol/L (10-20); BUN (Urea Nitrogen) 8 mg/dL (7.0-18.7); Calc. Creatinine Clearance 85 mL/min (70-130); Calcium 8.7 mg/dL (7.8-10.44); Carbon Dioxide 29 mmol/L (22-29); Chloride 102 mmol/L (98-107); Estimated GFR-MDRD Greater than 90; Glucose 133 mg/dL (70-105); Potassium 3.4 mmol/L (3.5-5.1); Sodium 139 mmol/L (136-145)
[2017-09-22 07:14] VITALS: BP 108/73; TEMP 98.6
[2017-09-22] MEDS: Enoxaparin Sodium 40 MG/0.4 ML SYRINGE SC SCH (08:30)
[2017-09-22] MEDS: Insulin NPH/Reg Insulin Hm 300 UNITS/3 ML VIAL SC SCH (08:31)
[2017-09-22] MEDS: DOMPERIDONE 10 MG PO SCH (09:00)
--- NOTE | 2017-09-22 10:05 | PDOC.PN ---
- Subjective Encounter Start Date: 09/22/17 Encounter Start Time: 08:00 Subjective: feels good, is eating better -: mother at bedside - Objective Resuscitation Status: Resuscitation Status FULL:Full Resuscitation MAR Reviewed: Yes Vital Signs & Weight: Vital Signs (12 hours) Temp Pulse Resp BP Pulse Ox 09/22/17 08:25 98.6 F 91 16 100 09/22/17 07:10 98.6 F 91 16 108/73 100 09/22/17 04:00 98.4 F 110 H 20 93/62 100 09/22/17 01:37 100 Weight Admit Weight 110 lb Weight 110 lb I&O: 09/21/17 09/22/17 09/23/17 06:59 06:59 06:59 Intake Total 1110 Balance 1110 Result Diagrams: 09/18/17 03:31 09/22/17 04:21 Additional Labs: Accuchecks 09/22/17 09/21/17 09/21/17 05:38 20:11 16:35 POC Glucose 133 H 167 H 194 H 09/21/17 11:15 POC Glucose 121 H Phys Exam - Physical Examination HEENT: PERRLA, moist MMs Neck: no JVD, supple Respiratory: no wheezing, no rales Cardiovascular: RRR, no significant murmur Gastrointestinal: soft, non-tender, no distention, positive bowel sounds Musculoskeletal: no edema, pulses present Neurological: non-focal, moves all 4 limbs Psychiatric: normal affect, A&O x 3 Dx/Plan (1) Intractable nausea and vomiting Code(s): R11.2 - NAUSEA WITH VOMITING, UNSPECIFIED Status: Resolved Comment : (2) Diabetes mellitus, type II, insulin dependent Code(s): E11.9 - TYPE 2 DIABETES MELLITUS WITHOUT COMPLICATIONS; Z79.4 - ASSISTED (CURRENT) USE OF INSULIN Status: Chronic Comment: (3) Diabetic gastroparesis Code(s): E11.43 - TYPE 2 DIABETES W DIABETIC AUTONOMIC (POLY)NEUROPATHY; K31.84 - GASTROPARESIS Status: Chronic Comment: (4) Moderate protein-calorie malnutrition Code(s): E44.0 - MODERATE PROTEIN-CALORIE MALNUTRITION Status: Chronic Comment: (5) DKA, type 2 Code(s): E11.10 - TYPE 2 DIABETES MELLITUS WITH KETOACIDOSIS WITHOUT COMA Status: Resolved Qualifiers: Diabetes mellitus exterminator helper termite insulin use: with exterminator helper termite use Diabetes mellitus complication detail: without coma Qualified Code(s): E11.10 - Type 2 diabetes mellitus with ketoacidosis without coma; Z79.4 - superintendent container terminal (current) use of insulin; Z79.4 - jail (current) use of insulin; Z79.4 - jail ( current) use of insulin; Z79.4 - jail (current) use of insulin - Plan hemostable -: dm well controlled -: dc pt home -: is eating better * .
--- NOTE | 2017-09-22 13:15 | DIS ---
DATE OF ADMISSION: 09/17/2017 DATE OF DISCHARGE: 09/22/2017 DISCHARGE DISPOSITION: To home. PRIMARY DISCHARGE DIAGNOSES: 1. Diabetic ketoacidosis, resolved. 2. Intractable nausea and vomiting, resolved. 3. Chronic gastroparesis due to diabetes. 4. Moderate protein malnutrition. PROCEDURES DONE DURING HOSPITALIZATION: Stool for Clostridium difficile, Campylobacter, Shiga toxin were all negative. Discharge H&H 12 and 34. Discharge fingerstick glucose ranging from 133-194. Be ta hydroxybutyrate was 4.9 on the day of admission. The patient's initial serum glucose was 664. Pr egnancy test was negative. Serum bicarbonate was 15 on the day of admission. DISCHARGE MEDICATIONS: The patient to continue her domperidone 10 mg 3 times daily, Cymbalta 20 mg d aily, NPH 12 units subcu twice daily along with insulin aspart. ALLERGIES: CODEINE, HALOPERIDOL, AMITRIPTYLINE, GLARGINE, METOCLOPRAMIDE, and LATEX. DISCHARGE PLAN: The patient to follow up with primary care physician in 1 week. BRIEF COURSE DURING HOSPITALIZATION: The patient initially got admitted on the with complaints of severe nausea and vomiting. She was also found to be in DKA. The patient was placed on IV insuli n drip in IMCU. She has had slow and gentle weaning into solid food. The patient has chronic histor y of gastroparesis and had to be placed on multiple medications to resolve her intractable nausea and vomiting. At the time of discharge, the patient is tolerating solid diet. She is ambulating and is wanting to go home today. She needs follow up with primary care physician in 1 week. The patient w as counseled with regards to medication compliance.
== END 2017-09-22 09:52 | disposition home or self-care (01) | DRG 638 ==
LOC: ERS 02:41 → IMCU/EMU 06:45 → 3SE 09-18 13:34 → T4-A 09-19 18:30
PROVIDERS: ADMIT Internal Medicine; ATTEND Internal Medicine
DX: E10.10 Type 1 diabetes mellitus with ketoacidosis without coma (principal); E44.0 Moderate protein-calorie malnutrition; Z68.1 Body mass index [BMI] 19.9 or less, adult; E10.43 Type 1 diabetes mellitus with diabetic autonomic (poly)neuropathy; E86.0 Dehydration; Z79.4 Long term (current) use of insulin; F41.9 Anxiety disorder, unspecified; F32.9 Major depressive disorder, single episode, unspecified; Z88.8 Allergy status to other drugs, medicaments and biological substances; Z88.5 Allergy status to narcotic agent; Z91.040 Latex allergy status; Z79.899 Other long term (current) drug therapy; K31.84 Gastroparesis; Z91.14 Patient's other noncompliance with medication regimen; A08.4 Viral intestinal infection, unspecified; K21.9 Gastro-esophageal reflux disease without esophagitis; K59.09 Other constipation; E83.39 Other disorders of phosphorus metabolism; E87.6 Hypokalemia
CPT/HCPCS: 36415; 36416; 80048; 80053; 80307; 81003; 82010; 82330; 82803; 83605; 83630; 83690; 83735; 84100; 84703; 85025; 85027; 87045; 87046; 87081; 87324; 87449; 87899; 96361; 96365; 96366; 96375; 96376; A4216; J1650; J1815; J2405; J2550; J3230; J3475; J3480; J7050; Q0162; S0028

== ENCOUNTER 2023-10-22 09:25 | Outpatient (CLI) | payer OTHER, SELFPAY | END 2023-10-22 09:26 | disposition home or self-care (01) | LOC: MRI 09:25 | PROVIDERS: ATTEND Family Medicine | DX: M50.121 Cervical disc disorder at C4-C5 level with radiculopathy (principal); M50.122 Cervical disc disorder at C5-C6 level with radiculopathy; M50.123 Cervical disc disorder at C6-C7 level with radiculopathy; R51.9 Headache, unspecified; M54.6 Pain in thoracic spine; H53.8 Other visual disturbances | CPT/HCPCS: 70551; 72141; 72146 ==

== ENCOUNTER 2023-10-22 09:30 | Outpatient (CLI) | payer OTHER | END 2023-10-22 09:31 | disposition home or self-care (01) | LOC: CT 09:30 | PROVIDERS: ATTEND Nurse Practitioner Gerontology | DX: E27.0 Other adrenocortical overactivity (principal); E27.9 Disorder of adrenal gland, unspecified; R03.0 Elevated blood-pressure reading, without diagnosis of hypertension; K63.89 Other specified diseases of intestine | CPT/HCPCS: 74150 ==